=== PATIENT | female | born 1970 | race Caucasian/White ===

== ENCOUNTER → 2016-08-23 | Outpatient (CLI) | payer OTHER ==
[~2016-08-23] MED LIST: CARB200T PO; CEPH-459 PO; CEPH-460 PO; MULT-120 PO; MULTTAB22 PO; ONETAB13 PO; PERC5TAB12 PO; TEGR200T PO
[2016-08-23 09:49] LABS: AUTOMATED NEUTROPHIL # 5.6 TH/MM3 (1.8-7.7); BASOPHIL % 0.3 % (0.0-2.0); EOSINOPHIL # 0.1 TH/MM3 (0-0.4); EOSINOPHIL % 1.8 % (0.0-4.0); HEMATOCRIT 40.1 % (35.0-46.0); HEMO FLAGS DIFF FINAL; LYMPH % 21.2 % (9.0-44.0); LYMPHOCYTE # 1.7 TH/MM3 (1.0-4.8); MEAN CELL VOLUME 89.4 FL (80.0-100.0); MEAN CORPUSCULAR HEMOGLOBIN 29.9 PG (27.0-34.0); MEAN CORPUSCULAR HGB CONC 33.4 % (32.0-36.0); MONO % 4.8 % (0.0-8.0); NEUT % 71.9 % (16.0-70.0); PLATELET COUNT 275 TH/MM3 (150-450); RED BLOOD COUNT 4.48 MIL/MM3 (4.00-5.30); RED CELL DISTRIBUTION WIDTH 12.7 % (11.6-17.2); WHITE BLOOD COUNT 7.8 TH/MM3 (4.0-11.0)
== END ==
LOC: CPRE 08:43
PROVIDERS: ATTEND Urology
DX: Z01.812 Encounter for preprocedural laboratory examination (principal); N13.5 Crossing vessel and stricture of ureter without hydronephrosis
CPT/HCPCS: 36415; 85025

== ENCOUNTER → 2016-08-26 | Day surgery (SDC) | payer OTHER ==
[~2016-08-26] VITALS: Ht 167.6 cm; Wt 83.9 kg
[~2016-08-26] MED LIST changes: +DEXAMETHASONE SOD PHOS 4 MG/ML VIAL ONE; +DO NOT ADM ANY ANTICOAGULANT DRUGS XX PRN; +FAMOTIDINE 20 MG/2 ML VIAL ONE; +INSULIN HUMAN REGULAR 1,000 UNITS/10 ML VIAL SQ PRN; +IOHEXOL 300 MG/ML 50 ML BTL (for RAD DIAG) ONE; +LACTATED RINGER'S 1000 ML INJ 1,000 ML IV ONE; +LACTATED RINGER'S 1000 ML IV SCH; +METOPROLOL TARTRATE 25 MG TAB PO PRN; +MIDAZOLAM HCL 2 MG/2 ML VIAL ONE; -MULT-120 PO; +ONDANSETRON HCL 4 MG/2 ML VIAL IV PUSH ONE; +ONDANSETRON HCL 4 MG/2 ML VIAL IV PUSH PRN; +PHENYLEPH/NS 1000 MCG/10 ML SYR IV ONE; +PROPOFOL 200 MG/20 ML AMP IV ONE; +SODIUM CHLORID 0.9% 500 ML IV SCH; +ceFAZolin 2 GM PREMIX 50 ML IV SCH; +oxyCODONE/ACETAMINOPHEN 5 MG/325 MG TAB PO PRN
[2016-08-26 07:02] VITALS: BP 178/98; PULSE 82; RESP 20; TEMP 98.1; O2SAT 97
[2016-08-26 13:25] VITALS: BP 140/82; PULSE 77; RESP 16; TEMP 97; O2SAT 96
--- NOTE | 2016-08-26 13:39 | MP ---
cc: VITALIY AGUILAR MD DATE OF SURGERY: 08/26/2016 INDICATIONS FOR PROCEDURE This is the case of a pleasant 45-year-old female with left ureteral obstruction secondary to endometriosis, who presents today for cystoscopy, removal of left stent, left ureteroscopy and possible ablation of any recurrent endometrial tumor formation. PREOPERATIVE DIAGNOSIS Endometriosis, left ureter. POSTOPERATIVE DIAGNOSIS Endometriosis, left ureter. ATTENDING SURGEON Dr. Aguilar ANESTHESIA General. PROCEDURES PERFORMED Cystoscopy, left retrograde pyelogram, left ureteroscopy with laser ablation of endometrioma and left ureteral stent exchange. COMPLICATIONS None. ESTIMATED BLOOD LOSS Minimal. SPECIMENS None. OPERATIVE PROCEDURE IN DETAIL The patient was brought to the operating room suite and placed supine on the cysto table. The patient was then placed under general anesthesia. She was then repositioned in the dorsal lithotomy position and prepped and draped in normal sterile fashion. All pressure points were adequately padded. After an appropriate timeout I proceeded with cystoscopic evaluation utilizing the rigid cystoscope with the 20-[place] Citizen sheath and 30-degree lens. The previously passed left double-J stent could be seen protruding from the left ureteral orifice. The stent was then grasped with flexible forceps and brought out to the urethral meatus. Next, a Sensor 0.035 wire was advanced up through the stent and up into the left renal pelvis. The stent was then removed over the wire. The wire was then secured to a sterile drape with a hemostat. I then proceeded with passing the [facility] self-dilating ureteroscope along the previously passed wire. I was able to pass the scope several centimeters up to the point of the obstructing endometrioma which was once again visualized. I then utilized the 200 micron holmium laser fiber and proceeded with laser ablation of the mass. Periodically I needed to exchange the laser fiber for the Bugbee electrode for hemostasis. Once the tumor was fully ablated, I then performed a left retrograde pyelogram that demonstrated prompt filling and drainage of the collecting system. A 6-[place] Citizen, 24 cm, long-term double-J stent was then placed over the wire under both cystoscopic and fluoroscopic guidance and once the stent was in proper position the trailing string was removed. The bladder was next drained of all irrigant fluid and a 16-[place] Citizen, 10 cc Almanza catheter was placed. The patient tolerated the procedures without complications and was transferred to the PACU in satisfactory condition. MD SHYANN Nicholas /11:18 AM /1:33 PM
== END | disposition home or self-care (01) ==
LOC: HSDC 06:18
PROVIDERS: ATTEND Urology
DX: N80.8 Other endometriosis (principal); N13.5 Crossing vessel and stricture of ureter without hydronephrosis; R32 Unspecified urinary incontinence; C50.911 Malignant neoplasm of unspecified site of right female breast; G40.909 Epilepsy, unspecified, not intractable, without status epilepticus
CPT/HCPCS: 00910; 52332; 52354; 74420; C1769; J0690; J1100; J2250; J2370; J2405; J3010; J7120; Q9967

== ENCOUNTER 2016-08-31 09:37 | Emergency (ER) | payer OTHER ==
[~2016-08-31] VITALS: Ht 167.6 cm; Wt 82.0 kg
[2016-08-31] VITALS (8 sets, daily range): BP systolic 128–183; BP diastolic 81–109; PULSE 66–92; RESP 16–18; TEMP 97.6; O2SAT 94–100
[~2016-08-31 09:37] MED LIST changes: -CEPH-460 PO; -DEXAMETHASONE SOD PHOS 4 MG/ML VIAL ONE; -DO NOT ADM ANY ANTICOAGULANT DRUGS XX PRN; -FAMOTIDINE 20 MG/2 ML VIAL ONE; -INSULIN HUMAN REGULAR 1,000 UNITS/10 ML VIAL SQ PRN; -IOHEXOL 300 MG/ML 50 ML BTL (for RAD DIAG) ONE; -LACTATED RINGER'S 1000 ML INJ 1,000 ML IV ONE; -LACTATED RINGER'S 1000 ML IV SCH; -METOPROLOL TARTRATE 25 MG TAB PO PRN; -MIDAZOLAM HCL 2 MG/2 ML VIAL ONE; -ONDANSETRON HCL 4 MG/2 ML VIAL IV PUSH ONE; -ONDANSETRON HCL 4 MG/2 ML VIAL IV PUSH PRN; -ONETAB13 PO; -PHENYLEPH/NS 1000 MCG/10 ML SYR IV ONE; -PROPOFOL 200 MG/20 ML AMP IV ONE; -SODIUM CHLORID 0.9% 500 ML IV SCH; -ceFAZolin 2 GM PREMIX 50 ML IV SCH; -oxyCODONE/ACETAMINOPHEN 5 MG/325 MG TAB PO PRN
[2016-08-31] MEDS ORDERED: SODIUM CHLOR 0.9% 1000 ML INJ 1,000 ML IV SCH (10:24)
[2016-08-31] MEDS ORDERED: PANTOPRAZOLE SODIUM 40 MG VIAL IVP ONE (10:30)
[2016-08-31] MEDS ORDERED: SODIUM CHLORIDE 0.9% FLUSH 5 ML FLUSH IVF PRN (10:30)
[2016-08-31] MEDS ORDERED: ONDANSETRON HCL 4 MG/2 ML VIAL IVP ONE (10:30)
[2016-08-31] MEDS ORDERED: MORPHINE SULFATE 4 MG/ML INJ IV PUSH ONE (10:30)
--- NOTE | 2016-08-31 10:33 | PD ---
HPI Chief Complaint: Flank/Kidney Pain Time Seen by Provider: 10:12 Travel History International Travel<30 days: No Contact w/Intl Traveler<30days: No Traveled to known affect area: No History of Present Illness HPI 45-year-old female complains of left flank pain. Patient states the pain started about half an hour prior coming to the emergency room. Patient states the pain is severe pain sharp pain started the left flank area with radiation to left side abdomen. Patient denies any fever chills. Patient denies any dysuria or frequency. Patient has history endometriosis status post stent placement in the left ureter [address] Aguilar. Patient states that she has been doing well postoperatively until today. Patient states that she has mild nausea but no vomiting or diarrhea. Patient denies any vaginal discharge or bleeding. On a scale of 1-10 the pain is an 8. PFSH Past Medical History Hx Anticoagulant Therapy: No Arthritis: No Asthma: No Autoimmune Disease: No Blood Disorders: No Anxiety: No Depression: No Heart Rhythm Problems: No Cancer: Yes (RIGHT BREAST) Cardiovascular Problems: No High Cholesterol: No Chemotherapy: Yes Chest Pain: No Congestive Heart Failure: No COPD: No Cerebrovascular Accident: No Diabetes: No Diminished Hearing: No Endocrine: No Gastrointestinal Disorders: Yes (IBS) GERD: No Glaucoma: No Genitourinary: No Headaches: No Hepatitis: No Hiatal Hernia: No Hypertension: No Immune Disorder: No Kidney Stones: No Musculoskeletal: No Neurologic: Yes (SEIZURE DISORDER, LAST OCCURENCE 02/2016) Psychiatric: No Reproductive: No Respiratory: No Myocardial Infarction: No Radiation Therapy: No Renal Failure: No Seizures: Yes Sickle Cell Disease: No Sleep Apnea: No Thyroid Disease: No Ulcer: No ?: Not : 2 Para: 2 Ovarian Cysts: Yes (REMOVED FROM LEFT OVARY 1995) Past Surgical History Abdominal Surgery: No AICD: No Body Medical Devices: L URETER STENT Cardiac Surgery: No Ear Surgery: No Endocrine Surgery: No Eye Surgery: No Genitourinary Surgery: Yes (URETEROSCOPY WITH STENT PLACEMENT) Gynecologic Surgery: Yes (PARTIAL HYSTERECTOMY) Hysterectomy: Yes Joint Replacement: No Neurologic Surgery: No Oral Surgery: No Pacemaker: No Thoracic Surgery: No Other Surgery: Yes (RIGHT BREAST CA SURGERY ) Social History Alcohol Use: No Tobacco Use: No Substance Use: No Allergies-Medications (Allergen,Severity, Reaction): Coded Allergies: Demerol (Verified Allergy, Severe, Respiratory Failure, 08/31/16) Azithromycin (Verified Allergy, Intermediate, Hives, 08/31/16) Reported Meds & Prescriptions Reported Meds & Active Scripts Active Percocet (Oxycodone-Acetaminophen) 5-325 mg Tab 1-2 Tab PO Q6H PRN Keflex (Cephalexin) 250 Mg Cap 250 Mg PO TID Reported Multi For Him (Multiple Vitamins W/ Minerals) 1 Tab Tab 1 Tab PO DAILY Carbamazepine 200 Mg Tab 400 Mg PO BID Tegretol (Carbamazepine) 200 Mg Tab 200 Mg PO 12PM Review of Systems General / Constitutional: No: Fever Eyes: No: Visual changes HENT: No: Headaches Cardiovascular: No: Chest Pain or Discomfort Respiratory: No: Shortness of Breath Gastrointestinal: Positive: Abdominal Pain Genitourinary: No: Dysuria Musculoskeletal: No: Pain Skin: No Rash Neurologic: No: Weakness Psychiatric: No: Depression Endocrine: No: Polydipsia Hematologic/Lymphatic: No: Easy Bruising Physical Exam Narrative GENERAL: Well-nourished, well-developed patient. SKIN: Warm and dry. HEAD: Normocephalic. EYES: No scleral icterus. No injection or drainage. NECK: Supple, trachea midline. No JVD or lymphadenopathy. CARDIOVASCULAR: Regular rate and rhythm without murmurs, gallops, or rubs. RESPIRATORY: Breath sounds equal bilaterally. No accessory muscle use. GASTROINTESTINAL: Abdomen soft, non-tender, nondistended. MUSCULOSKELETAL: No cyanosis, or edema. BACK: Patient has moderate tenderness and palpation left flank area. No rebound tenderness. No mass. Neurologic exam normal. Data Data Last Documented VS Vital Signs Date Time Temp Pulse Resp B/P Pulse Ox O2 Delivery O2 Flow Rate FiO2 08/31/16 15:45 66 18 146/88 100 Nasal Cannula 2 08/31/16 09:39 97.6 Orders Complete Blood Count With Diff (08/31/16 10:24) Comprehensive Metabolic Panel (08/31/16 10:24) Lipase (08/31/16 10:24) Prothrombin Time / Inr (Pt) (08/31/16 10:24) Act Partial Throm Time (Ptt) (08/31/16 10:24) Urinalysis - C+S If Indicated (08/31/16 10:24) Ct Abd/Pel W/O Iv Contrast (08/31/16 10:24) Iv Access Insert/Monitor (08/31/16 10:24) Ecg Monitoring (08/31/16 10:24) Oximetry (08/31/16 10:24) Morphine Inj (Morphine Inj) (08/31/16 10:30) Ondansetron Inj (Zofran Inj) (08/31/16 10:30) Pantoprazole Inj (Protonix Inj) (08/31/16 10:30) Sodium Chlor 0.9% 1000 Ml Inj (Ns 1000 M (08/31/16 10:24) Sodium Chloride 0.9% Flush (Ns Flush) (08/31/16 10:30) Nephrostomy (08/31/16 ) Levofloxacin 500 Mg Premix Inj (Levaquin (08/31/16 14:08) Midazolam Inj (Versed Inj) (08/31/16 14:08) Fentanyl Inj (Fentanyl Inj) (08/31/16 14:09) Iohexol 350 Inj (Omnipaque 350 Inj) (08/31/16 14:38) Vital Signs (Adult) Q15MX2,Q30MX2 (08/31/16 14:55) Intake + Output MARICRUZ.QSHIFT (08/31/16 14:55) ^ Drain (08/31/16 14:55) ^ Change Dressing (08/31/16 14:55) ^ Notify Radiology (08/31/16 14:55) Percutaneous Ant. Pyelogram (08/31/16 ) Us Guided Needle Placement (08/31/16 ) Labs Laboratory Tests Test 08/31/16 10:30 White Blood Count 8.4 TH/MM3 Red Blood Count 4.39 MIL/MM3 Hemoglobin 13.1 GM/DL Hematocrit 39.1 % Mean Corpuscular Volume 89.2 FL Mean Corpuscular Hemoglobin 29.9 PG Mean Corpuscular Hemoglobin 33.5 % Concent Red Cell Distribution Width 13.0 % Platelet Count 301 TH/MM3 Mean Platelet Volume 7.2 FL Neutrophils (%) (Auto) 64.8 % Lymphocytes (%) (Auto) 26.4 % Monocytes (%) (Auto) 6.1 % Eosinophils (%) (Auto) 2.4 % Basophils (%) (Auto) 0.3 % Neutrophils # (Auto) 5.4 TH/MM3 Lymphocytes # (Auto) 2.2 TH/MM3 Monocytes # (Auto) 0.5 TH/MM3 Eosinophils # (Auto) 0.2 TH/MM3 Basophils # (Auto) 0.0 TH/MM3 CBC Comment DIFF FINAL Differential Comment Prothrombin Time 10.2 SEC Prothromb Time International 0.9 RATIO Ratio Activated Partial 24.3 SEC Thromboplast Time Urine Color YELLOW Urine Turbidity CLEAR Urine pH 5.5 Urine Specific [place] 1.010 Urine Protein TRACE mg/dL Urine Glucose (UA) NEG mg/dL Urine Ketones NEG mg/dL Urine Occult Blood MOD Urine Nitrite NEG Urine Bilirubin NEG Urine Urobilinogen LESS THAN 2.0 MG/DL Urine Leukocyte Esterase MOD Urine RBC 15 /hpf Urine WBC 6 /hpf Urine Squamous Epithelial 2 /hpf Cells Urine Bacteria RARE /hpf Urine Mucus FEW /lpf Microscopic Urinalysis Comment CULT NOT INDICATED Sodium Level 143 MEQ/L Potassium Level 3.9 MEQ/L Chloride Level 106 MEQ/L Carbon Dioxide Level 28.0 MEQ/L Anion Gap 9 MEQ/L Blood Urea Nitrogen 16 MG/DL Creatinine 0.70 MG/DL Estimat Glomerular Filtration 91 ML/MIN Rate Random Glucose 109 MG/DL Calcium Level 8.6 MG/DL Total Bilirubin 0.2 MG/DL Aspartate Amino Transf 10 U/L (AST/SGOT) Alanine Aminotransferase 22 U/L (ALT/SGPT) Alkaline Phosphatase 84 U/L Total Protein 7.5 GM/DL Albumin 3.5 GM/DL Lipase 142 U/L [facility] Medical Decision Making Medical Screen Exam Complete: Yes Emergency Medical Condition: Yes Interpretation(s) Last Impressions Abdomen/Pelvis CT 08/31/16 1024 Signed Impressions: Service Date/Time: Wednesday, August 31, 2016 10:58 - CONCLUSION: The left kidney remains severely hydronephrotic despite the placement of a left-sided double-J ureteral catheter. The ureter is quite dilated all the way down into the mid pelvis. The catheter is in good position without any obvious residual stone... Alin Jansen MD 11:35 AM. CBC within normal limit. CMP within normal limit. UA positive for WBC RBC and bacteria. Differential Diagnosis Differential diagnosis including urethral stent obstruction, nephrolithiasis, pyelonephritis, colitis, musculoskeletal. Narrative Course 45-year-old female with left flank pain. Status post ureteral stent placement for obstructive endometriosis. Normal saline solution 1 25 cc an hour. Morphine 4 mg IV. Zofran 4 mg IV. I spoke with Dr. Aguilar, advised interventional radiologist for nephrology tube placement today. Patient was sent to IR for nephrology to placement and came back. Patient was observed and did well. Patient will be discharged home to follow with Dr. Aguilar. Diagnosis Primary Impression: Ureteral obstruction, left Additional Impression: Endometriosis Patient Instructions: General Instructions Additional Instructions: Keflex as directed. Follow-up with personal physician and urologist. Return if persistent problem or worse. Med/Other Pt SpecificInfo: Prescription(s) given Scripts Cephalexin (Keflex)500 Mg Stn391 Mg PO Q8H #21 CAP Ref 0 Prov:Yusuf Maurer MD 08/31/16 Disposition: 01 DISCHARGE HOME Condition: Stable Yusuf Maurer MD Aug 31, 2016 10:33
[2016-08-31 10:51] LABS: AUTOMATED NEUTROPHIL # 5.4 TH/MM3 (1.8-7.7); BASOPHIL % 0.3 % (0.0-2.0); EOSINOPHIL # 0.2 TH/MM3 (0-0.4); EOSINOPHIL % 2.4 % (0.0-4.0); HEMATOCRIT 39.1 % (35.0-46.0); HEMO FLAGS DIFF FINAL; LYMPH % 26.4 % (9.0-44.0); LYMPHOCYTE # 2.2 TH/MM3 (1.0-4.8); MEAN CELL VOLUME 89.2 FL (80.0-100.0); MEAN CORPUSCULAR HEMOGLOBIN 29.9 PG (27.0-34.0); MEAN CORPUSCULAR HGB CONC 33.5 % (32.0-36.0); MONO % 6.1 % (0.0-8.0); NEUT % 64.8 % (16.0-70.0); PLATELET COUNT 301 TH/MM3 (150-450); RED BLOOD COUNT 4.39 MIL/MM3 (4.00-5.30); WHITE BLOOD COUNT 8.4 TH/MM3 (4.0-11.0)
[2016-08-31 10:53] LABS: BACTERIA, URINE RARE /hpf; BLOOD, URINE MOD (NEG); COMMENT (UR) CULT NOT INDICATED; CULTURE IF INDICATED CULT NOT INDICATED; GLUCOSE,URINE NEG (NEG); KETONE, URINE NEG (NEG); MUCUS URINE FEW /lpf (OCC); NITRITE,URINE NEG (NEG); PH, URINE 5.5 (5.0-8.5); SQUAMOUS EPITHELIAL CELL URINE 2 /hpf (0-5); URINE COLOR YELLOW (YELLW/STRAW)
[2016-08-31 10:59] LABS: APTT (PATIENT) 24.3 SEC (24.3-30.1); INTERNATIONAL NORMALIZED RATIO 0.9 RATIO; PROTHROMBIN TIME - PATIENT 10.2 SEC (9.8-11.6)
[2016-08-31 11:01] LABS: ANION GAP 9 MEQ/L (5-15); AST (GOT) 10 U/L (15-37); BLOOD UREA NITROGEN 16 MG/DL (7-18); CHLORIDE 106 MEQ/L (98-107); GLOMERULAR FILTRATION RATE 91 ML/MIN (>89); POTASSIUM 3.9 MEQ/L (3.5-5.1); SODIUM (NA) 143 MEQ/L (136-145)
[2016-08-31 11:04] LABS: ALKALINE PHOSPHATASE 84 U/L (45-117); ALT (GPT) 22 U/L (10-53); TOTAL BILIRUBIN ADULT 0.2 MG/DL (0.2-1.0)
--- NOTE | 2016-08-31 11:15 | RADRPT ---
EXAM DATE/TIME: 08/31/2016 10:58 [facility] COMPARISON: No previous studies available for comparison. INDICATIONS : Left flank pain; recent stent placement. ORAL CONTRAST: No oral contrast ingested. RADIATION DOSE: 11.73 CTDIvol (mGy) MEDICAL HISTORY : Irritiable bowel syndrome. Carcinoma, breast. Endometriosis SURGICAL HISTORY : Hysterectomy. Left oophorectomy, right lumpectomy. ENCOUNTER: Initial ACUITY: 1 week PAIN SCALE: 8/10 LOCATION: Left flank TECHNIQUE: Volumetric scanning of the abdomen and pelvis was performed. Using automated exposure control and ad justment of the mA and/or kV according to patient size, radiation dose was kept as low as reasonably achievable to obtain optimal diagnostic quality images. FINDINGS: LOWER LUNGS: The visualized lower lungs are clear. LIVER: Homogeneous density without lesion. There is no dilation of the biliary tree. No calcified gallston es. SPLEEN: Normal size without lesion. PANCREAS: Within normal limits. KIDNEYS: The left kidney remains severely hydronephrotic despite the placement of a left-sided double-J ureter al catheter. The ureter is quite dilated all the way down into the mid pelvis. The catheter is in goo d position without any obvious residual stone. Right kidney is 10.5 cm in height, left 12.5. ADRENAL GLANDS: Within normal limits. VASCULAR: There is no aortic aneurysm. BOWEL/MESENTERY: The stomach, small bowel, and colon demonstrate no acute abnormality. There is no free intraperitone al air or fluid. ABDOMINAL WALL: Within normal limits. RETROPERITONEUM: There is no lymphadenopathy. BLADDER: No wall thickening or mass. REPRODUCTIVE: Hypodensities in the right adnexa likely benign functional cysts in the 45 year-old female INGUINAL: There is no lymphadenopathy or hernia. MUSCULOSKELETAL: Within normal limits for patient age. CONCLUSION: The left kidney remains severely hydronephrotic despite the placement of a left-sided double-J ureter al catheter. The ureter is quite dilated all the way down into the mid pelvis. The catheter is in goo d position without any obvious residual stone... Alin Jansen MD on August 31, 2016 at 11:08 Board Certified Radiologist. This report was verified electronically.
[2016-08-31] MEDS ORDERED: MIDAZOLAM HCL 5 MG/5 ML VIAL ONE (14:08)
[2016-08-31] MEDS ORDERED: LEVOFLOXACIN 500 MG PREMIX INJ 100 ML IV ONE (14:08)
[2016-08-31] MEDS ORDERED: fentaNYL CITRATE 250 MCG/5 ML AMP ONE (14:09)
[2016-08-31] MEDS ORDERED: IOHEXOL 350 MG/ML 50 ML BTL (for RAD DIAG) ONE (14:38)
--- NOTE | 2016-08-31 14:57 | PD.RAD ---
Post Procedure Progress Note Pre Procedure Diagnosis: (1) Ureteral obstruction, left Post Procedure Diagnosis: (1) Ureteral obstruction, left Procedure Date: Aug 31, 2016 Supervising Radiologist: Dominick Leung Proceduralist/Assist: RT Refugio(R) Anesthesia: Local, Conscious Sedation Plan of Activity Patient to Unit: Nursing Unit Patient Condition: Good See PACS Report for procedural detail/treatment Drainage Procedure Procedure 1 Imaging Guidance: Fluoroscopy, Ultrasound Side: Left Procedure Type: Nephrostomy Procedure: Placement Australian: 8 Drainage: [place] drainage Dominick Leung MD Aug 31, 2016 14:57
--- NOTE | 2016-08-31 15:23 | RADRPT ---
EXAM DATE/TIME: 08/31/2016 13:53 [facility] COMPARISON: No previous studies available for comparison. INDICATIONS : Patient with left hydronephrosis in need of nephrostomy tube placement. MEDICAL HISTORY : Irritiable bowel syndrome. Carcinoma, breast. Endometriosis SURGICAL HISTORY : Hysterectomy. Left oophorectomy, right lumpectomy. ENCOUNTER: Initial ACUITY: 3 months PAIN SCORE: 0/10 FLUORO TIME: 4.4 minutes SEDATION TIME: 30 minutes CONTRAST: 25 cc Omnipaque (iohexol) 350 MEDICATION(S): 1.) 2 mg midazolam (Versed) IV 2.) 100 mcg fentanyl (Sublimaze) IV DEVICE(S): 1.) 8 [place] nephrostomy catheter PROCEDURE : 1. fluoroscopic and Ultrasound-guided puncture of the kidney. 2. Antegrade percutaneous pyelogram. 3. Percutaneous nephrostomy placement. 4. Conscious sedation with continuous EKG and oximetry monitoring. TECHNIQUE: The patient was placed prone on the fluoroscopy table. The back was prepped in sterile fashion. Full sterile technique was used, including cap, mask, sterile gloves and gown and a large sterile sheet. H and hygiene and 2% chlorhexidine and/or betadine/alcohol prep was utilized per protocol for cutaneous antisepsis. The skin and subcutaneous tissues were infiltrated with local anesthetic solution. Under direct ultrasound and fluoroscopic guidance, a 22 gauge Chiba needle was used to access a poste rior lower pole calyx of the left kidney. A 0.018 inch guidewire was introduced and manipulated into the proximal ureter. The AccuStick dilator was used to aid in insertion of a 4 [place] vessel dilator. The transparenchymal tract was tested over a Toughy-Mik adapter revealing direct access into the c ollecting system with no vascular opacification noted. The AccuStick was then used to insert a 5.5 Fr ench vessel dilator through which an angled Glidewire was inserted. An 8 [place] pigtail nephrostomy t ube was then introduced and formed up in the renal pelvis. This was secured at the skin with silk sut ure and connected to gravity drainage. Small volume contrast injection confirmed good positioning in the collecting system. The patient tolerated the procedure well and was taken to recovery area in stable condition. MEDICAL MANAGEMENT: Conscious sedation administered as above. Continuous pulse oximetry, hemodynamic and EKG monitoring p erformed throughout. Patient was stable throughout and taken to recovery in good stable condition. CONCLUSION: Uncomplicated percutaneous nephrostomy as above. Dominick Leung MD on August 31, 2016 at 15:16 Board Certified Radiologist. This report was verified electronically.
[2016-08-31] MEDS ORDERED: CEPH-460 PO (16:58)
[2016-10-14] MEDS ORDERED: ONETAB13 PO (07:44)
[2016-10-14] MEDS ORDERED: CEPH-459 PO (11:16)
[2016-10-14] MEDS ORDERED: PERC5TAB12 PO (11:16)
== END 2016-08-31 17:40 | disposition home or self-care (01) ==
LOC: NEPA 09:37
DX: N13.5 Crossing vessel and stricture of ureter without hydronephrosis (principal); K58.9 Irritable bowel syndrome, unspecified
CPT/HCPCS: 50432; 74176; 80053; 81001; 83690; 85025; 85610; 85730; 96361; 96374; 96375; 99152; 99153; 99284; C1729; C1769; C1894; C9113; J1956; J2250; J2270; J2405; J3010; J7030; Q9967

== ENCOUNTER 2016-08-31 19:33 | Emergency (ER) | payer OTHER ==
[~2016-08-31] VITALS: Ht 167.6 cm; Wt 81.5 kg
[~2016-08-31 19:33] MED LIST changes: +CEPH-460 PO
[2016-08-31 19:36] VITALS: BP 167/91; PULSE 83; RESP 18; TEMP 98; O2SAT 96
--- NOTE | 2016-08-31 20:56 | PD ---
HPI Chief Complaint: Machine Coremaker Problem Time Seen by Provider: 20:50 Travel History International Travel<30 days: No Contact w/Intl Traveler<30days: No Traveled to known affect area: No History of Present Illness HPI 45-year-old female with history of endometriosis and blockage of her left ureter secondary to endometriosis, had a stent and urostomy tube placed today by interventional radiology, returns to the ER today because she states that the urostomy to his leaking. She denies any other issues. Modifying Factors: None Associated Signs & Symptoms: Leaking of urostomy tube Risk Factors: None PFSH Past Medical History Hx Anticoagulant Therapy: No Arthritis: No Asthma: No Autoimmune Disease: No Blood Disorders: No Anxiety: No Depression: No Heart Rhythm Problems: No Cancer: Yes (RIGHT BREAST) Cardiovascular Problems: No High Cholesterol: No Chemotherapy: Yes Chest Pain: No Congestive Heart Failure: No COPD: No Cerebrovascular Accident: No Diabetes: No Diminished Hearing: No Endocrine: No Gastrointestinal Disorders: Yes (IBS) GERD: No Glaucoma: No Genitourinary: No Headaches: No Hepatitis: No Hiatal Hernia: No Hypertension: No Immune Disorder: No Kidney Stones: No Musculoskeletal: No Neurologic: Yes (SEIZURE DISORDER, LAST OCCURENCE 02/2016) Psychiatric: No Reproductive: No Respiratory: No Myocardial Infarction: No Radiation Therapy: No Renal Failure: No Seizures: Yes Sickle Cell Disease: No Sleep Apnea: No Thyroid Disease: No Ulcer: No Tetanus Vaccination: > 5 Years Influenza Vaccination: Yes ?: Not : 2 Para: 2 Ovarian Cysts: Yes (REMOVED FROM LEFT OVARY 1995) Past Surgical History Abdominal Surgery: No AICD: No Body Medical Devices: L URETER STENT Cardiac Surgery: No Ear Surgery: No Endocrine Surgery: No Eye Surgery: No Genitourinary Surgery: Yes (URETEROSCOPY WITH STENT PLACEMENT) Gynecologic Surgery: Yes (PARTIAL HYSTERECTOMY) Hysterectomy: Yes Joint Replacement: No Neurologic Surgery: No Oral Surgery: No Pacemaker: No Thoracic Surgery: No Other Surgery: Yes (RIGHT BREAST CA SURGERY ) Social History Alcohol Use: No Tobacco Use: No Substance Use: No Allergies-Medications (Allergen,Severity, Reaction): Coded Allergies: Demerol (Verified Allergy, Severe, Respiratory Failure, 08/31/16) Azithromycin (Verified Allergy, Intermediate, Hives, 08/31/16) Reported Meds & Prescriptions Reported Meds & Active Scripts Active Keflex (Cephalexin) 500 Mg Cap 500 Mg PO Q8H Percocet (Oxycodone-Acetaminophen) 5-325 mg Tab 1-2 Tab PO Q6H PRN Keflex (Cephalexin) 250 Mg Cap 250 Mg PO TID Reported Multi For Him (Multiple Vitamins W/ Minerals) 1 Tab Tab 1 Tab PO DAILY Carbamazepine 200 Mg Tab 400 Mg PO BID Tegretol (Carbamazepine) 200 Mg Tab 200 Mg PO 12PM Review of Systems Except as stated in HPI: all other systems reviewed are Neg Physical Exam Narrative GENERAL: Well-nourished, well-developed middle age white female patient in no acute distress. SKIN: Warm and dry. HEAD: Normocephalic. EYES: No scleral icterus. No injection or drainage. NECK: Supple, trachea midline. CARDIOVASCULAR: Regular rate and rhythm without murmurs, gallops, or rubs. RESPIRATORY: Breath sounds equal bilaterally. No accessory muscle use. GASTROINTESTINAL: Abdomen soft, non-tender, nondistended. MUSCULOSKELETAL: No cyanosis, or edema. BACK: Nontender without obvious deformity. Left sided urostomy tube is in place. It is noted that there is some urine leakage from the connection between the urostomy tube and urostomy bag. Data Data Last Documented VS Vital Signs Date Time Temp Pulse Resp B/P Pulse Ox O2 Delivery O2 Flow Rate FiO2 08/31/16 19:36 98.0 83 18 167/91 96 Room Air MDM Medical Decision Making Medical Screen Exam Complete: Yes Emergency Medical Condition: Yes Medical Record Reviewed: Yes Differential Diagnosis Leakage of urine from urostomy tube/request for change tube Narrative Course The urostomy bag was changed by me in the ER without issues. It is draining urine properly. At this point, my plan would be to release her with follow-up to urology. Return for any new issues as needed. The plan was discussed with the patient and she states understanding. Diagnosis Primary Impression: Catheter (urine) change required Disposition: 01 DISCHARGE HOME Condition: Stable Nila Parkinson MD Aug 31, 2016 20:56
[2016-10-14] MEDS ORDERED: ONETAB13 PO (07:44)
[2016-10-14] MEDS ORDERED: CEPH-459 PO (11:16)
[2016-10-14] MEDS ORDERED: PERC5TAB12 PO (11:16)
== END 2016-08-31 21:44 | disposition home or self-care (01) ==
LOC: NEPC 19:33
DX: Z45.2 Encounter for adjustment and management of vascular access device (principal)
CPT/HCPCS: 99282

== ENCOUNTER 2016-09-01 08:44 | Emergency (ER) | payer OTHER ==
[~2016-09-01] VITALS: Ht 167.6 cm; Wt 75.0 kg
[2016-09-01 08:47] VITALS: BP 175/94; PULSE 78; RESP 17; TEMP 98.2; O2SAT 95
--- NOTE | 2016-09-01 09:08 | PD ---
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 Patient says that she had the nephrostomy tube was put in by interventional radiology yesterday as ordered by the urologist Dr. Aguilar. She went home and had to return last night since the nephrostomy tube was leaking. She was discharged home after it was supposedly fixed but at home it started leaking again. Hence patient is back again now. No history of pain or any other symptoms. It's leaking right at the joint of the tube to the catheter. She has wrapped it with a gauze and tape. PFSH Past Medical History Narrative Medical List of her past medical history as reviewed from the nursing note. Hx Anticoagulant Therapy: No Arthritis: No Asthma: No Autoimmune Disease: No Blood Disorders: No Anxiety: No Depression: No Heart Rhythm Problems: No Cancer: Yes (RIGHT BREAST) Cardiovascular Problems: No High Cholesterol: No Chemotherapy: Yes Chest Pain: No Congestive Heart Failure: No COPD: No Cerebrovascular Accident: No Diabetes: No Diminished Hearing: No Endocrine: No Gastrointestinal Disorders: Yes (IBS) GERD: No Glaucoma: No Genitourinary: No Headaches: No Hepatitis: No Hiatal Hernia: No Hypertension: No Immune Disorder: No Kidney Stones: No Musculoskeletal: No Neurologic: Yes (SEIZURE DISORDER, LAST OCCURENCE 02/2016) Psychiatric: No Reproductive: No Respiratory: No Myocardial Infarction: No Radiation Therapy: No Renal Failure: No Seizures: Yes Sickle Cell Disease: No Sleep Apnea: No Thyroid Disease: No Ulcer: No Tetanus Vaccination: < 5 Years ?: Not : 2 Para: 2 Ovarian Cysts: Yes (REMOVED FROM LEFT OVARY 1995) Past Surgical History Abdominal Surgery: No AICD: No Body Medical Devices: L URETER STENT Cardiac Surgery: No Ear Surgery: No Endocrine Surgery: No Eye Surgery: No Genitourinary Surgery: Yes (URETEROSCOPY WITH STENT PLACEMENT) Gynecologic Surgery: Yes (PARTIAL HYSTERECTOMY) Hysterectomy: Yes Joint Replacement: No Neurologic Surgery: No Oral Surgery: No Pacemaker: No Thoracic Surgery: No Other Surgery: Yes (RIGHT BREAST CA SURGERY ) Social History Alcohol Use: No Tobacco Use: No Substance Use: No Allergies-Medications (Allergen,Severity, Reaction): Coded Allergies: Demerol (Verified Allergy, Severe, Respiratory Failure, 09/01/16) Azithromycin (Verified Allergy, Intermediate, Hives, 09/01/16) Comments List of her allergies reviewed from the nursing note. Reported Meds & Prescriptions Reported Meds & Active Scripts Active Keflex (Cephalexin) 500 Mg Cap 500 Mg PO Q8H Percocet (Oxycodone-Acetaminophen) 5-325 mg Tab 1-2 Tab PO Q6H PRN Keflex (Cephalexin) 250 Mg Cap 250 Mg PO TID Reported Multi For Him (Multiple Vitamins W/ Minerals) 1 Tab Tab 1 Tab PO DAILY Carbamazepine 200 Mg Tab 400 Mg PO BID Tegretol (Carbamazepine) 200 Mg Tab 200 Mg PO 12PM Narrative Medication List of her home medications reviewed from the nursing note. Review of Systems Except as stated in HPI: all other systems reviewed are Neg Physical Exam Narrative GENERAL: Awake, alert, no obvious distress SKIN: Warm and dry. Nephrostomy tube from the left side. The percutaneous area looks good. The gauze wrapped around the junction was taken down. The screw seemed a little loose and I tightened it. HEAD: Atraumatic. Normocephalic. EYES: Pupils equal and round. No scleral icterus. No injection or drainage. ENT: No nasal bleeding or discharge. Mucous membranes pink and moist. NECK: Trachea midline. No JVD. CARDIOVASCULAR: Regular rate and rhythm. No murmur appreciated. RESPIRATORY: No accessory muscle use. Clear to auscultation. Breath sounds equal bilaterally. GASTROINTESTINAL: Abdomen soft, non-tender, nondistended. Hepatic and splenic margins not palpable. MUSCULOSKELETAL: No obvious deformities. No clubbing. No cyanosis. No edema. NEUROLOGICAL: Awake and alert. No obvious cranial nerve deficits. Motor grossly within normal limits. Normal speech. PSYCHIATRIC: Appropriate mood and affect; insight and judgment normal. Data Data Last Documented VS Vital Signs Date Time Temp Pulse Resp B/P Pulse Ox O2 Delivery O2 Flow Rate FiO2 09/01/16 08:47 98.2 78 17 175/94 95 MDM Medical Decision Making Medical Screen Exam Complete: Yes Emergency Medical Condition: Yes Medical Record Reviewed: Yes Differential Diagnosis Nephrostomy tube malfunction Narrative Course 10 AM I went back and checked after an hour to see if the tube was leaking and I did not notice any leakage. The patient is satisfied with this. I will discharge her home since I do not see any other reason to keep her or intervene. Patient will follow up with her urologist on Friday. Procedures EKG Prior to Arrival: No Diagnosis Primary Impression: Malfunction of nephrostomy tube Referrals: French Aguilar MD 2 days Additional Instructions: Please follow-up with your urologist on Friday. Return to the ER if symptoms worsen or any other new concerns. Med/Other Pt SpecificInfo: No Change to Meds Disposition: 01 DISCHARGE HOME Condition: Stable Junior Bruner MD Sep 01, 2016 09:08
[2016-10-14] MEDS ORDERED: ONETAB13 PO (07:44)
[2016-10-14] MEDS ORDERED: PERC5TAB12 PO (11:16)
[2016-10-14] MEDS ORDERED: CEPH-459 PO (11:16)
== END 2016-09-01 11:09 | disposition home or self-care (01) ==
LOC: NEPE 08:44
DX: T83.032A Leakage of nephrostomy catheter, initial encounter (principal); K58.9 Irritable bowel syndrome, unspecified; R56.9 Unspecified convulsions
CPT/HCPCS: 99283

== ENCOUNTER → 2016-10-14 | Day surgery (SDC) | payer OTHER ==
[~2016-10-14] VITALS: Ht 167.6 cm; Wt 83.3 kg
[~2016-10-14] MED LIST changes: -CARB200T PO; -CEPH-460 PO; +DEXAMETHASONE SOD PHOS 4 MG/ML VIAL ONE; +DO NOT ADM ANY ANTICOAGULANT DRUGS XX PRN; +FAMOTIDINE 20 MG/2 ML VIAL ONE; +IOHEXOL 350 MG/ML 10 ML VIAL (for RAD DIAG) ONE; +KETOROLAC TROMETHAMINE 60 MG/2 ML (IM) VIAL IM ONE; +MIDAZOLAM HCL 2 MG/2 ML VIAL ONE; +ONDANSETRON HCL 4 MG/2 ML VIAL IV PUSH ONE; +ONDANSETRON HCL 4 MG/2 ML VIAL IV PUSH PRN; +ONETAB13 PO; +PROPOFOL 200 MG/20 ML AMP IV ONE; +ceFAZolin 2 GM PREMIX 50 ML ONE; +ePHEDrine/NS 25 MG/5 ML SYR IV ONE; +oxyCODONE/ACETAMINOPHEN 5 MG/325 MG TAB PO PRN
[2016-10-14 07:50] VITALS: BP 143/90; PULSE 84; RESP 20; TEMP 97.9; O2SAT 97
[2016-10-14 08:46] LABS: AUTOMATED NEUTROPHIL # 2.6 TH/MM3 (1.8-7.7); BASOPHIL % 0.3 % (0.0-2.0); EOSINOPHIL # 0.2 TH/MM3 (0-0.4); EOSINOPHIL % 3.3 % (0.0-4.0); HEMATOCRIT 35.3 % (35.0-46.0); HEMO FLAGS DIFF FINAL; LYMPH % 34.7 % (9.0-44.0); LYMPHOCYTE # 1.6 TH/MM3 (1.0-4.8); MEAN CELL VOLUME 89.4 FL (80.0-100.0); MEAN CORPUSCULAR HEMOGLOBIN 30.8 PG (27.0-34.0); MEAN CORPUSCULAR HGB CONC 34.4 % (32.0-36.0); NEUT % 54.7 % (16.0-70.0); PLATELET COUNT 221 TH/MM3 (150-450); RED BLOOD COUNT 3.95 MIL/MM3 (4.00-5.30); RED CELL DISTRIBUTION WIDTH 12.7 % (11.6-17.2); WHITE BLOOD COUNT 4.7 TH/MM3 (4.0-11.0)
--- NOTE | 2016-10-14 11:14 | PD.OP ---
Operative Report Date of Surgery: Oct 14, 2016 Preoperative Diagnosis: (1) Ureteral obstruction, left Postoperative Diagnosis: (1) Ureteral obstruction, left Procedure: Cystoscopy, left retrograde pyelogram, left ureteroscopy and exchange of left ureteral stent. 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 Patient is status post previous fulguration with stent placement and has been on ongoing medical management for the endometriosis. Presents now for reevaluation to include cystoscopy, removal of left ureteral stent and left retrograde study. Operative procedure in detail: Patient was brought to the operating suite and placed supine on the OR table. She was then placed under general anesthesia. She was then repositioned in the dorsolithotomy position and prepped and draped in normal sterile fashion. After an appropriate timeout was undertaken proceeded with cystoscopic evaluation utilizing the rigid cystoscope with the 20 [place] sheath and 30 lens. The previously placed left ureteral stent could be seen protruding from the patient's left ureteral orifice. There were no bladder mucosal lesions or other abnormalities noted. The left stent was grasped with flexible forceps and removed. A 6 [place] open-ended ureteral catheter was utilized and a left retrograde pyelogram study performed. There was a filling defect noted within the distal left ureter and only a small amount of contrast was seen passing around this filling defect. I then placed a 0.035 wire up the patient's left ureter and secured to a sterile drape with hemostat the self dilating ureteroscope was then utilized and ureteroscopic evaluation of the distal left ureter was performed. There were several mass lesions within the lumen of the left distal ureter causing obstruction consistent with endometrioma formation. The ureteroscope was withdrawn and a 6 [place] 24 cm salvage determiner double-J stent was placed under both cystoscopic and fluoroscopic guidance without difficulty. The bladder was next drained of all irrigant fluid and cystoscope withdrawn. Plan: We'll discuss options with the patient to include conservative management with ongoing medical management and follow up endoscopic evaluation in approximate 6 months versus surgical segmental resection of the involved distal left ureter. French Aguilar MD Oct 14, 2016 11:14
[2016-10-14 13:00] VITALS: BP 142/92; PULSE 70; RESP 16; TEMP 97.1; O2SAT 98
== END | disposition home or self-care (01) ==
LOC: HSDC 06:47
PROVIDERS: ATTEND Urology
DX: N13.5 Crossing vessel and stricture of ureter without hydronephrosis (principal); N80.8 Other endometriosis
CPT/HCPCS: 00910; 52332; 74420; 85025; C1769; J0690; J1100; J1885; J2250; J2405; J3010; Q9967

== ENCOUNTER → 2017-05-05 | Day surgery (SDC) | payer OTHER ==
[~2017-05-05] VITALS: Ht 167.6 cm; Wt 90.0 kg
[~2017-05-05] MED LIST changes: +*morphine SULFATE 8 MG/ML PERIprocedure ONLY ONE; +CARB200T PO; +CHLORHEXIDINE GLUCONATE 2 % 1 PACK (2 CLOTHS) TOPICAL PRN; +CIPR500T2 PO; +CRANCAP2 PO; -DEXAMETHASONE SOD PHOS 4 MG/ML VIAL ONE; +DO NOT ADM ANY ANTICOAGULANT DRUGS PRN; -DO NOT ADM ANY ANTICOAGULANT DRUGS XX PRN; +HYDR12.57 PO; +INSULIN HUMAN REGULAR 1,000 UNITS/10 ML VIAL SQ PRN; -IOHEXOL 350 MG/ML 10 ML VIAL (for RAD DIAG) ONE; +IOHEXOL 350 MG/ML 50 ML BTL (for RAD DIAG) OTHER ONE; -KETOROLAC TROMETHAMINE 60 MG/2 ML (IM) VIAL IM ONE; +LACTATED RINGER'S 1000 ML INJ 1,000 ML IV ONE; +LACTATED RINGER'S 1000 ML IV PRN; +LEVA500T20 PO; +LEVO500T8 PO; +METOPROLOL TARTRATE 25 MG TAB PO PRN; +MIDAZOLAM HCL 2 MG/2 ML VIAL IV ONE; -MIDAZOLAM HCL 2 MG/2 ML VIAL ONE; -MULTTAB22 PO; +POVIDONE IODINE 5% (ANTISEPSIS KIT) 4 APPLICATIONS EACH NARE PRN; +PROMETHAZINE INJ 25 MG/ML VIAL ONE; +PROPOFOL 100 MG/10 ML INJ IV ONE; -PROPOFOL 200 MG/20 ML AMP IV ONE; +SODIUM CHLORID 0.9% 500 ML IV PRN; +ceFAZolin 2 GM PREMIX 50 ML IV SCH; -ceFAZolin 2 GM PREMIX 50 ML ONE; -ePHEDrine/NS 25 MG/5 ML SYR IV ONE
[2017-05-05 07:05] LABS: AUTOMATED NEUTROPHIL # 2.7 TH/MM3 (1.8-7.7); BASOPHIL % 0.6 % (0.0-2.0); EOSINOPHIL # 0.4 TH/MM3 (0-0.4); EOSINOPHIL % 6.9 % (0.0-4.0); HEMO FLAGS DIFF FINAL; LYMPH % 35.2 % (9.0-44.0); LYMPHOCYTE # 1.9 TH/MM3 (1.0-4.8); MEAN CELL VOLUME 88.9 FL (80.0-100.0); MEAN CORPUSCULAR HEMOGLOBIN 29.4 PG (27.0-34.0); MEAN CORPUSCULAR HGB CONC 33.1 % (32.0-36.0); NEUT % 48.3 % (16.0-70.0); PLATELET COUNT 234 TH/MM3 (150-450); RED BLOOD COUNT 3.93 MIL/MM3 (4.00-5.30); RED CELL DISTRIBUTION WIDTH 12.9 % (11.6-17.2); WHITE BLOOD COUNT 5.5 TH/MM3 (4.0-11.0)
--- NOTE | 2017-05-05 11:06 | PD.OP ---
Operative Report Date of Surgery: May 05, 2017 Preoperative Diagnosis: (1) Ureteral obstruction, left Postoperative Diagnosis: (1) Ureteral obstruction, left Procedure: Cystoscopy, left stent removal, left retrograde pyelogram, left ureteroscopy with fulguration of residual mass consistent with endometrioma and placement of termite exterminator helper left ureteral stent. 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 Patient is status post placement of a termite exterminator helper stent August of this year and has been medically managed for her endometriosis. Patient presents now to reassess her left collecting system. Operative procedure in detail: Patient was brought to the operating room suite and placed supine on the OR table. She was then placed under general endotracheal anesthesia. She was then repositioned in the dorsal lithotomy position and prepped and draped in normal sterile fashion. After an appropriate timeout was undertaken I proceeded with cystoscopic evaluation utilizing the rigid cystoscope with the 20 [place]ian sheath and the 30 lens. The previously past left ureteral stent could be seen protruding from the left ureteral orifice. A sensor 0.035 wire was gently advanced alongside the stent and advanced up into the left kidney under fluoroscopic guidance. The guidewire place the left stent was removed by grasping it with flexible forceps. A 6 [place] open-ended catheter was advanced over the past guidewire and the guidewire withdrawn. A left retrograde problem study was then performed and demonstrated a filling defect within the distal left ureter with sluggish drainage of contrast. The guidewire was reintroduced and the open- ended catheter was removed. The flexible ureteroscope was then utilized and advanced alongside the guidewire. There was residual obstructing tissue involving the distal ureter just beyond the margin of the 2 upper ureters into the single lower ureter. The tissue was consistent with the patient's known endometriosis. The [place] electrode was then utilized and the obstructing tissue mass was fulgurated. The flexible ureteroscope was withdrawn and the 6 [place] opening catheter was once again utilized to perform a left retrograde pyelogram study. This time there was prompt drainage of contrast noted. The 0.035 sensor wire was once again utilized advanced through the open-ended catheter and the open-ended catheter was exchanged for a 6 [place] 28 cm termite exterminator helper stent. The proximal coil was noted to be within the upper pole of the left kidney and the lower coil within the bladder. A 16 [place]ian 10 cc Almanza catheter was in place and connected to gravity drainage. The patient tolerated the procedures without complications and was transferred to the PACU in satisfactory condition. The left ureteral stent will need to be left in place for a minimum of 6 weeks. French Aguilar MD May 05, 2017 11:06
[2017-05-05 13:44] VITALS: BP 127/83; PULSE 72; RESP 16; TEMP 97.5; O2SAT 97
== END | disposition home or self-care (01) ==
LOC: HSDC 06:05
PROVIDERS: ATTEND Urology
DX: N13.1 Hydronephrosis with ureteral stricture, not elsewhere classified (principal); N80.8 Other endometriosis; K58.9 Irritable bowel syndrome, unspecified; Z01.818 Encounter for other preprocedural examination
CPT/HCPCS: 00910; 52224; 52332; 85025; J0690; J2270; J7120; Q9967; 74420; C1769; J2250; J2405; J2550; J3010

== ENCOUNTER 2017-05-06 17:49 | Inpatient (IN) | payer OTHER ==
[~2017-05-06] VITALS: Ht 167.6 cm; Wt 99.0 kg
[~2017-05-06 17:49] MED LIST changes: -*morphine SULFATE 8 MG/ML PERIprocedure ONLY ONE; -CARB200T PO; -CHLORHEXIDINE GLUCONATE 2 % 1 PACK (2 CLOTHS) TOPICAL PRN; -CIPR500T2 PO; -DO NOT ADM ANY ANTICOAGULANT DRUGS PRN; -FAMOTIDINE 20 MG/2 ML VIAL ONE; -HYDR12.57 PO; -INSULIN HUMAN REGULAR 1,000 UNITS/10 ML VIAL SQ PRN; -IOHEXOL 350 MG/ML 50 ML BTL (for RAD DIAG) OTHER ONE; -LACTATED RINGER'S 1000 ML INJ 1,000 ML IV ONE; -LACTATED RINGER'S 1000 ML IV PRN; -LEVA500T20 PO; -LEVO500T8 PO; -METOPROLOL TARTRATE 25 MG TAB PO PRN; -MIDAZOLAM HCL 2 MG/2 ML VIAL IV ONE; -ONDANSETRON HCL 4 MG/2 ML VIAL IV PUSH ONE; -ONDANSETRON HCL 4 MG/2 ML VIAL IV PUSH PRN; -POVIDONE IODINE 5% (ANTISEPSIS KIT) 4 APPLICATIONS EACH NARE PRN; -PROMETHAZINE INJ 25 MG/ML VIAL ONE; -PROPOFOL 100 MG/10 ML INJ IV ONE; -SODIUM CHLORID 0.9% 500 ML IV PRN; -ceFAZolin 2 GM PREMIX 50 ML IV SCH; -oxyCODONE/ACETAMINOPHEN 5 MG/325 MG TAB PO PRN
[2017-05-06 17:50] VITALS: BP 113/65; PULSE 144; RESP 16; RESP 28; TEMP 103; O2SAT 94
[2017-05-06] MEDS ORDERED: SODIUM CHLOR 0.9% 1000 ML INJ 700 ML IV ONE (18:08)
[2017-05-06] MEDS ORDERED: SODIUM CHLOR 0.9% 1000 ML INJ 1,000 ML IV ONE ×3 (18:08→21:45)
--- NOTE | 2017-05-06 18:10 | PD ---
HPI Chief Complaint: GI Complaint Time Seen by Provider: 18:10 Travel History International Travel<30 days: No Contact w/Intl Traveler<30days: No Traveled to known affect area: No History of Present Illness HPI This is a 46-year-old female presents for evaluation of fever, nausea, dizziness and lightheadedness. The patient underwent cystoscopy, left stent removal, left retrograde pyelogram, left ureteroscopy with fulguration of residual mass and placement a long-term left ureteral stent performed by Dr. Aguilar. Her current symptoms have been ongoing since this morning. She reports that she had some vomiting yesterday but that has resolved. She has had a decreased appetite today. She endorses some pressure in the left side of her abdomen. She reports a slight cough and sore throat today as well. She reports some dysuria yesterday which has resolved. She has no other complaints at this time. PFSH Past Medical History Hx Anticoagulant Therapy: No Arthritis: No Asthma: No Autoimmune Disease: No Blood Disorders: No Anxiety: No Depression: No Heart Rhythm Problems: No Cancer: Yes (RIGHT BREAST CANCER) Cardiovascular Problems: No High Cholesterol: No Chemotherapy: Yes Chest Pain: No Congestive Heart Failure: No COPD: No Cerebrovascular Accident: No Diabetes: No Diminished Hearing: No Endocrine: No Gastrointestinal Disorders: Yes (HX IBS) GERD: No Glaucoma: No Genitourinary: No Headaches: No Hepatitis: No Hiatal Hernia: No Hypertension: No Immune Disorder: No Kidney Stones: No Musculoskeletal: No Neurologic: Yes (EPILEPSY) Psychiatric: No Reproductive: No Respiratory: No Myocardial Infarction: No Radiation Therapy: No Renal Failure: No Seizures: Yes Sickle Cell Disease: No Sleep Apnea: No Thyroid Disease: No Ulcer: No ?: Not : 2 Para: 2 Ovarian Cysts: Yes (REMOVED FROM LEFT OVARY 1995) Past Surgical History Abdominal Surgery: No AICD: No Body Medical Devices: KIDNEY STENTS Cardiac Surgery: No Ear Surgery: No Endocrine Surgery: No Eye Surgery: No Genitourinary Surgery: Yes (LEFT KIDNEY 2 STENTS, LEFT NEPHRO TUBES X2, stents removed from kidney) Gynecologic Surgery: Yes (PARTIAL HYSTERECTOMY) Hysterectomy: Yes Joint Replacement: No Neurologic Surgery: No Oral Surgery: No Pacemaker: No Thoracic Surgery: Yes (LUMPECTOMY RIGHT BREAST 2006) Other Surgery: Yes (RIGHT BREAST CA SURGERY ) Social History Alcohol Use: No Tobacco Use: No Substance Use: No Allergies-Medications (Allergen,Severity, Reaction): Coded Allergies: meperidine (Verified Allergy, Severe, Respiratory Failure, 05/06/17) azithromycin (Verified Allergy, Intermediate, Hives, 05/06/17) Reported Meds & Prescriptions Reported Meds & Active Scripts Active Keflex (Cephalexin) 250 Mg Cap 250 Mg PO TID Percocet (Oxycodone-Acetaminophen) 5-325 mg Tab 1-2 Tab PO Q6H PRN Reported Cranberry Urinary Comfort (Vitamins C & E) 1 Cap 1 Cap PO DAILY One Daily For Women (Multiple Vitamins W/ Minerals) 1 Tab Tab 2 Tab PO DAILY Tegretol (Carbamazepine) 200 Mg Tab 200 Mg PO DIRECTED 400MG AM 200MG AFTERNOON 400MG HS Review of Systems Except as stated in HPI: all other systems reviewed are Neg Physical Exam Narrative GENERAL: This is a well-developed well-nourished female who is in no acute distress. She is tachycardic and initial examination. SKIN: Warm and dry. HEAD: Atraumatic. Normocephalic. EYES: Pupils equal and round. No scleral icterus. No injection or drainage. ENT: No nasal bleeding or discharge. Mucous membranes pink and moist. NECK: Trachea midline. No JVD. CARDIOVASCULAR: Regular rate and rhythm. No murmur appreciated. RESPIRATORY: No accessory muscle use. Clear to auscultation. Breath sounds equal bilaterally. GASTROINTESTINAL: Abdomen soft, mild left-sided abdominal tenderness without guarding. MUSCULOSKELETAL: No obvious deformities. No clubbing. No cyanosis. No edema. NEUROLOGICAL: Awake and alert. No obvious cranial nerve deficits. Motor grossly within normal limits. Normal speech. PSYCHIATRIC: Appropriate mood and affect; insight and judgment normal. Data Data Last Documented VS Vital Signs Date Time Temp Pulse Resp B/P (MAP) Pulse Ox O2 Delivery O2 Flow Rate FiO2 05/06/17 20:13 99.5 115 22 95/54 (68) 96 Room Air Orders Orders Electrocardiogram (05/06/17 18:08) Complete Blood Count With Diff (05/06/17 18:08) Comprehensive Metabolic Panel (05/06/17 18:08) Prothrombin Time / Inr (Pt) (05/06/17 18:08) Act Partial Throm Time (Ptt) (05/06/17 18:08) Lactic Acid Sepsis Protocol (05/06/17 18:08) Urinalysis - C+S If Indicated (05/06/17 18:08) Influenzae A/B Antigen (05/06/17 18:08) Blood Culture (05/06/17 18:08) Chest, Single Ap (05/06/17 18:08) Blood Glucose (05/06/17 18:08) Ecg Monitoring (05/06/17 18:08) Iv Access Insert/Monitor (05/06/17 18:08) Oximetry (05/06/17 18:08) Oxygen Administration (05/06/17 18:08) Ct Abd/Pel W Iv Contrast(Rout) (05/06/17 18:08) Sodium Chlor 0.9% 1000 Ml Inj (Ns 1000 M (05/06/17 18:08) Sodium Chlor 0.9% 1000 Ml Inj (Ns 1000 M (05/06/17 18:08) Sodium Chlor 0.9% 1000 Ml Inj (Ns 1000 M (05/06/17 18:08) Acetaminophen (Tylenol) (05/06/17 18:15) Ondansetron Inj (Zofran Inj) (05/06/17 18:15) Group A Rapid Strep Screen (05/06/17 18:10) Piperacil-Tazo 3.375 Gm Premix (Zosyn 3. (05/06/17 18:15) Vancomycin Inj (Vancomycin Inj) (05/06/17 18:15) Strep Culture (Group A) (05/06/17 18:28) Iohexol 350 Inj (Omnipaque 350 Inj) (05/06/17 19:30) Potassium Chloride (Kcl) (05/06/17 19:45) Urine Culture (05/06/17 19:35) Npo After Midnight W/ Po Meds (05/07/17 Breakfast) Admit Order (Ed Use Only) (05/06/17 20:43) Consult Urology (05/06/17 ) Labs Laboratory Tests Test 05/06/17 18:20 05/06/17 19:35 White Blood Count 23.5 TH/MM3 Red Blood Count 4.30 MIL/MM3 Hemoglobin 12.9 GM/DL Hematocrit 38.2 % Mean Corpuscular Volume 88.9 FL Mean Corpuscular Hemoglobin 30.1 PG Mean Corpuscular Hemoglobin Concent 33.8 % Red Cell Distribution Width 13.1 % Platelet Count 239 TH/MM3 Mean Platelet Volume 7.1 FL Neutrophils (%) (Auto) 87.3 % Lymphocytes (%) (Auto) 3.7 % Monocytes (%) (Auto) 8.9 % Eosinophils (%) (Auto) 0.0 % Basophils (%) (Auto) 0.1 % Neutrophils # (Auto) 20.5 TH/MM3 Lymphocytes # (Auto) 0.9 TH/MM3 Monocytes # (Auto) 2.1 TH/MM3 Eosinophils # (Auto) 0.0 TH/MM3 Basophils # (Auto) 0.0 TH/MM3 CBC Comment DIFF FINAL Differential Comment Prothrombin Time 11.4 SEC Prothromb Time International Ratio 1.0 RATIO Activated Partial Thromboplast Time 27.4 SEC Blood Urea Nitrogen 14 MG/DL Creatinine 1.35 MG/DL Random Glucose 171 MG/DL Total Protein 7.8 GM/DL Albumin 3.1 GM/DL Calcium Level 8.5 MG/DL Alkaline Phosphatase 112 U/L Aspartate Amino Transf (AST/SGOT) 34 U/L Alanine Aminotransferase (ALT/SGPT) 34 U/L Total Bilirubin 0.4 MG/DL Sodium Level 137 MEQ/L Potassium Level 3.2 MEQ/L Chloride Level 100 MEQ/L Carbon Dioxide Level 26.2 MEQ/L Anion Gap 11 MEQ/L Estimat Glomerular Filtration Rate 42 ML/MIN Lactic Acid Level 3.3 mmol/L Urine Color YELLOW Urine Turbidity CLOUDY Urine pH 6.0 Urine Specific [place] 1.020 Urine Protein 100 mg/dL Urine Glucose (UA) TRACE mg/dL Urine Ketones NEG mg/dL Urine Occult Blood MOD Urine Nitrite NEG Urine Bilirubin NEG Urine Urobilinogen LESS THAN 2.0 MG/DL Urine Leukocyte Esterase LARGE Urine RBC 104 /hpf Urine WBC /hpf Urine Squamous Epithelial Cells 3 /hpf Urine Amorphous Sediment RARE Urine Bacteria MANY /hpf Urine Hyaline Casts 7 /lpf Urine Mucus MANY /lpf Microscopic Urinalysis Comment CATH-CULTURE IND MDM Medical Decision Making Medical Screen Exam Complete: Yes Emergency Medical Condition: Yes Medical Record Reviewed: Yes Interpretation(s) EKG sinus tachycardia rate 120 Differential Diagnosis Sepsis, bacteremia, pyelonephritis, perinephric abscess, pneumonia, influenza Narrative Course 46-year-old female who yesterday underwent Cystoscopy, left stent removal, left retrograde pyelogram, left ureteroscopy with fulguration of residual mass consistent with endometrioma and placement of intermediate project manager left ureteral stent presents today with fever, nausea, lightheadedness which started this morning. On initial examination she is tachycardic with a heart rate in the 130s, temperature 103. She has mild left-sided abdominal tenderness to palpation. The patient be given broad-spectrum antibiotics, 3 L of IV fluids. Plan is for basic lab work, chest x-ray, CT abdomen and pelvis, the patient with recent ECG monitor and pulse oximetry. Tylenol administered. Chest x-ray reveals perihilar infiltrates. Lab work is notable for a WBC count of 23.5 with 87% neutrophils, potassium 3.2, creatinine 1.35, lactic acid 3.3. CT abdomen and pelvis reveals: CONCLUSION: 1. Dilated thick-walled lower pole moiety and lower pole ureter on the left with perinephric and periureteral inflammatory changes suggesting obstruction and probable infection of the lower pole moiety. There is a focal area of attenuation within the lower pole of the left kidney measuring 3.6 x 2.6 cm suggestive of possible abscess. Discussed the findings with urologist educational adviser Dr. Honeycutt who would like the patient admitted to medicine with consultation to himself. The patient is now admitted. Sepsis Criteria SIRS Criteria (2 or more): Temp > 100.9 or < 96.8, Heart rate over 90, WBC > 58601, < 4000 or > 10% bands Sepsis Criteria (SIRS+source): Infect source susp/known Severe Sepsis (+one): Lactate >2 Diagnosis Primary Impression: Severe sepsis Additional Impression: Renal abscess Admitting Information Admitting Physician Requests: Admit Clifford Blake May 06, 2017 18:10
[2017-05-06] MEDS ORDERED: ONDANSETRON HCL 4 MG/2 ML VIAL IV PUSH ONE (18:15)
[2017-05-06] MEDS ORDERED: ACETAMINOPHEN 325 MG TAB PO ONE (18:15)
[2017-05-06] MEDS ORDERED: PIPERACIL-TAZO 3.375 GM PREMIX 50 ML IV ONE (18:15)
[2017-05-06] MEDS ORDERED: VANCOMYCIN INJ 1,000 MG in SODIUM CHLOR 0.9% 250 ML INJ 250 ML IV ONE (18:15)
[2017-05-06 18:37] VITALS: BP 115/72; PULSE 124; RESP 20; TEMP 102; O2SAT 96
[2017-05-06 18:39] LABS: AUTOMATED NEUTROPHIL # 20.5 TH/MM3 (1.8-7.7); BASOPHIL % 0.1 % (0.0-2.0); HEMATOCRIT 38.2 % (35.0-46.0); HEMO FLAGS DIFF FINAL; LYMPH % 3.7 % (9.0-44.0); LYMPHOCYTE # 0.9 TH/MM3 (1.0-4.8); MEAN CELL VOLUME 88.9 FL (80.0-100.0); MEAN CORPUSCULAR HEMOGLOBIN 30.1 PG (27.0-34.0); MEAN CORPUSCULAR HGB CONC 33.8 % (32.0-36.0); MONO % 8.9 % (0.0-8.0); NEUT % 87.3 % (16.0-70.0); PLATELET COUNT 239 TH/MM3 (150-450); RED CELL DISTRIBUTION WIDTH 13.1 % (11.6-17.2); WHITE BLOOD COUNT 23.5 TH/MM3 (4.0-11.0)
[2017-05-06 18:51] LABS: APTT (PATIENT) 27.4 SEC (24.3-30.1); PROTHROMBIN TIME - PATIENT 11.4 SEC (9.8-11.6)
[2017-05-06 18:58] LABS: ANION GAP 11 MEQ/L (5-15); AST (GOT) 34 U/L (15-37); BICARBONATE 26.2 MEQ/L (21.0-32.0); BLOOD UREA NITROGEN 14 MG/DL (7-18); CHLORIDE 100 MEQ/L (98-107); GLOMERULAR FILTRATION RATE 42 ML/MIN (>89); POTASSIUM 3.2 MEQ/L (3.5-5.1); SODIUM (NA) 137 MEQ/L (136-145)
[2017-05-06 19:01] LABS: ALKALINE PHOSPHATASE 112 U/L (45-117); ALT (GPT) 34 U/L (10-53); TOTAL BILIRUBIN ADULT 0.4 MG/DL (0.2-1.0)
--- NOTE | 2017-05-06 19:10 | RADRPT ---
EXAM DATE/TIME: 05/06/2017 18:31 [facility] COMPARISON: CHEST SINGLE AP, March 19, 2013, 19:24. INDICATIONS : Fever and cough. MEDICAL HISTORY : Irritable bowel syndrome. Carcinoma, breast. Endometriosis SURGICAL HISTORY : Right lumpectomy, hysterectomy. ENCOUNTER: Initial ACUITY: 1 day PAIN SCORE: 0/10 LOCATION: Bilateral chest FINDINGS: Perihilar infiltrates are noted consistent with mild pulmonary vascular congestion versus pneumonia. Clinical correlation is recommended. The heart is mildly prominent. There is a poor inspiratory resu lt. Degenerative changes and scoliosis of the thoracolumbar spine are noted. CONCLUSION: 1. Perihilar infiltrates consistent with pulmonary vascular congestion versus pneumonia. Clinical co rrelation is recommended. 2. Mild cardiomegaly. 3. Degenerative changes and scoliosis of the thoracolumbar spine. Rivera Ramirez MD on May 06, 2017 at 19:04 Board Certified Radiologist. This report was verified electronically.
[2017-05-06] MEDS ORDERED: IOHEXOL 350 MG/ML 10 ML VIAL (for RAD DIAG) IVCONTRAST ONE (19:30)
[2017-05-06] MEDS ORDERED: POTASSIUM CHLORIDE 20 MEQ CONTROLLED RELEASE TAB PO ONE (19:45)
[2017-05-06 19:48] LABS: BACTERIA, URINE MANY /hpf; BLOOD, URINE MOD (NEG); COMMENT (UR) CATH-CULTURE IND; CULTURE IF INDICATED CATH CULTURE IND; GLUCOSE,URINE TRACE mg/dL (NEG); HYALINE CAST, URINE 7 /lpf (RARE); KETONE, URINE NEG (NEG); MUCUS URINE MANY /lpf (OCC); NITRITE,URINE NEG (NEG); SQUAMOUS EPITHELIAL CELL URINE 3 /hpf (0-5); URINE COLOR YELLOW (YELLW/STRAW)
--- NOTE | 2017-05-06 19:58 | RADRPT ---
EXAM DATE/TIME: 05/06/2017 19:11 [place] COMPARISON: CT ABDOMEN & PELVIS W/O CONTRAST, August 31, 2016, 10:58. INDICATIONS : Patient had ureteral stent placed yesterday and since has had left side abdominal pain, fever, nausea and vomiting. IV CONTRAST: 70 cc Omnipaque 350 (iohexol) IV ORAL CONTRAST: No oral contrast ingested. RADIATION DOSE: 10.27 CTDIvol (mGy) MEDICAL HISTORY : Irritable bowel syndrome. Carcinoma, breast. Endometriosis. SURGICAL HISTORY : Hysterectomy. Left oophorectomy. Right lumpectomy. Kidney stents. ENCOUNTER: Initial ACUITY: 1 day PAIN SCALE: 8/10 LOCATION: Left abdomen. TECHNIQUE: Volumetric scanning of the abdomen and pelvis was performed. Using automated exposure control and ad justment of the mA and/or kV according to patient size, radiation dose was kept as low as reasonably achievable to obtain optimal diagnostic quality images. DICOM format image data is available electro nically for review and comparison. FINDINGS: There is a duplicated collecting system on the left. Internal ureteral stent has its proximal loop i n the upper pole moiety and it distal loop at the junction of the distal ureter and urinary bladder. The lower pole moiety is hydronephrotic. The lower pole ureter is also thickened, inflamed and dila shannan. The lower pole collecting system is also thickened suggesting acute obstruction and probable in fection. There is a nodular area of decreased attenuation involving the lower pole of the left kidne y measuring 3.6 x 2.6 cm consistent with possible focal renal abscess. Perinephric fluid and inflamm atory changes are noted on the left. The liver, spleen, pancreas, gallbladder and adrenal glands are unchanged compared to the previous ex amination. The abdominal aorta and inferior vena cava are normal. The patient is status post hyster ectomy. No bowel obstruction is noted. The visualized lung bases demonstrate scattered fibrotic scarring and/or atelectasis posteriorly. CONCLUSION: 1. Dilated thick-walled lower pole moiety and lower pole ureter on the left with perinephric and jenise ureteral inflammatory changes suggesting obstruction and probable infection of the lower pole moiety. There is a focal area of attenuation within the lower pole of the left kidney measuring 3. 6 x 2.6 cm suggestive of possible abscess. 2. Internal ureteral stent within the upper pole moiety on the left which is nondilated. 3. Fibrotic scarring and/or atelectasis within the posterior lung bases. Rivera Ramirez MD on May 06, 2017 at 19:41 Board Certified Radiologist. This report was verified electronically.
[2017-05-06 20:13] VITALS: BP 95/54; PULSE 115; RESP 22; TEMP 99.5; O2SAT 96
[2017-05-06 20:32] LABS: LACTIC ACID GHOST NOT REPORTABLE
--- NOTE | 2017-05-06 21:11 | HHI.HP ---
HPI Service Family Medicine Primary Care Physician Fox Rosa MD Admission Diagnosis severe sepsis, pyelonephritis, renal abscess Diagnoses: International Travel<30 Days: No Contact w/Intl Traveler<30days: No Known Affected Area: No History of Present Illness Mrs. Mcknight is a 46 yo F with history of endometriosis, seizure disorder, and ureteral obstruction who presents with fever and altered mental status. Patient reportedly had L ureteral stent placement 05/[address] Aguilar. Patient reportedly was found this evening by her with T 104.5F, "goofy"/ confused, with difficulty ambulating, some SOB/coughing, tiredness. Patient does not report associated abdominal pain, back pain, or dysuria. Patient states that she was prescribed Keflex yesterday; she filled medication this morning. [Interval history: Since arrival at ED and treatment with fluids/antibiotics, patient reportedly improved. Patient given ~3L NS bolus, Vancomycin, and Zosyn; sepsis protocol initiated] Review of Systems Constitutional: COMPLAINS OF: Fever, DENIES: Chills Eyes: DENIES: Diplopia, Eye pain Respiratory: COMPLAINS OF: Cough, Shortness of breath Cardiovascular: DENIES: Chest pain, Syncope Gastrointestinal: DENIES: Abdominal pain, Constipation Genitourinary: DENIES: Urgency, Dysuria Musculoskeletal: DENIES: Muscle aches, Back pain Integumentary: DENIES: Abnormal pigmentation, Rash Neurologic: DENIES: Headache, Paresthesias, Seizures (not for ~1 year) Psychiatric: COMPLAINS OF: Confusion, DENIES: Mood changes Past Family Social History Past Medical History Per Patient/EMR Endometriosis T2DM Pelvic mass/ureteral obstruction Epilepsy Past Surgical History Per Patient/EMR 04/2017- Recent Cystoscopy, left stent removal, left retrograde pyelogram, left ureteroscopy with fulguration of residual mass consistent with endometrioma and placement of fci left ureteral stent Breast biopsy Hysterectomy Lumpectomy in 2005 Reported Medications Reported Meds & Active Scripts Active Keflex (Cephalexin) 250 Mg Cap 250 Mg PO TID Percocet (Oxycodone-Acetaminophen) 5-325 mg Tab 1-2 Tab PO Q6H PRN Reported Cranberry Urinary Comfort (Vitamins C & E) 1 Cap 1 Cap PO DAILY One Daily For Women (Multiple Vitamins W/ Minerals) 1 Tab Tab 2 Tab PO DAILY Tegretol (Carbamazepine) 200 Mg Tab 200 Mg PO DIRECTED 400MG AM 200MG AFTERNOON 400MG HS Allergies: Coded Allergies: meperidine (Verified Allergy, Severe, Respiratory Failure, 05/06/17) azithromycin (Verified Allergy, Intermediate, Hives, 05/06/17) Family History Mother- Epilepsy Social History No smoking, drinking, or illicit drugs Physical Exam Vital Signs Vital Signs Date Time Temp Pulse Resp B/P (MAP) Pulse Ox O2 Delivery O2 Flow Rate FiO2 05/06/17 20:13 99.5 115 22 95/54 (68) 96 Room Air 05/06/17 18:37 102.0 124 20 115/72 (86) 96 Room Air 05/06/17 18:37 97 Room Air 05/06/17 17:54 (81) 05/06/17 17:50 103.0 144 28 113/65 (81) 94 Physical Exam GENERAL: Patient appears comfortable SKIN: Warm and dry, no rashes appreciated EYES: No scleral icterus, injection, or drainage. HENT: Head: Normocephalic. Mouth: No lesions appreciated. Pharynx: Benign exam without erythema or exudate. NECK: No appreciated lymphadenopathy or thyromegaly CARDIOVASCULAR: Tachycardic, regular rhythm without murmurs. Normal peripheral perfusion in lower extremities. RESPIRATORY: Normal respiratory rate. Lungs clear to auscultation bilaterally. GASTROINTESTINAL: Abdomen soft, nondistended, nontender. Bowel sounds normal. MUSCULOSKELETAL: No lower extremity swelling. No appreciated calf asymmetry. NEURO/PSYCH: Awake, alert, and oriented. Cranial nerves grossly normal. Grossly normal motor and sensory function. Laboratory Laboratory Tests Test 05/06/17 18:20 05/06/17 19:35 White Blood Count 23.5 Red Blood Count 4.30 Hemoglobin 12.9 Hematocrit 38.2 Mean Corpuscular Volume 88.9 Mean Corpuscular Hemoglobin 30.1 Mean Corpuscular Hemoglobin Concent 33.8 Red Cell Distribution Width 13.1 Platelet Count 239 Mean Platelet Volume 7.1 Neutrophils (%) (Auto) 87.3 Lymphocytes (%) (Auto) 3.7 Monocytes (%) (Auto) 8.9 Eosinophils (%) (Auto) 0.0 Basophils (%) (Auto) 0.1 Neutrophils # (Auto) 20.5 Lymphocytes # (Auto) 0.9 Monocytes # (Auto) 2.1 Eosinophils # (Auto) 0.0 Basophils # (Auto) 0.0 CBC Comment DIFF FINAL Differential Comment Prothrombin Time 11.4 Prothromb Time International Ratio 1.0 Activated Partial Thromboplast Time 27.4 Blood Urea Nitrogen 14 Creatinine 1.35 Random Glucose 171 Total Protein 7.8 Albumin 3.1 Calcium Level 8.5 Alkaline Phosphatase 112 Aspartate Amino Transf (AST/SGOT) 34 Alanine Aminotransferase (ALT/SGPT) 34 Total Bilirubin 0.4 Sodium Level 137 Potassium Level 3.2 Chloride Level 100 Carbon Dioxide Level 26.2 Anion Gap 11 Estimat Glomerular Filtration Rate 42 Lactic Acid Level 3.3 Urine Color YELLOW Urine Turbidity CLOUDY Urine pH 6.0 Urine Specific Dexter 1.020 Urine Protein 100 Urine Glucose (UA) TRACE Urine Ketones NEG Urine Occult Blood MOD Urine Nitrite NEG Urine Bilirubin NEG Urine Urobilinogen LESS THAN 2.0 Urine Leukocyte Esterase LARGE Urine RBC 104 Urine WBC Urine Squamous Epithelial Cells 3 Urine Amorphous Sediment RARE Urine Bacteria MANY Urine Hyaline Casts 7 Urine Mucus MANY Microscopic Urinalysis Comment CATH-CULTURE IND Date/Time Source Procedure Growth Status 05/06/17 18:25 Blood Peripheral Aerobic Blood Culture Pending Received 05/06/17 18:25 Blood Peripheral Anaerobic Blood Culture Pending Received 05/06/17 18:28 Throat Group A Streptococcus Screen Pending Received 05/06/17 19:35 Urine Catheterized Urine Urine Culture Pending Received Result Diagram: 05/06/17181905/06/171819 Imaging Last Impressions Chest X-Ray 05/06/171807 Signed Impressions: Service Date/Time: Saturday, May 06, 2017 18:31 - CONCLUSION: 1. Perihilar infiltrates consistent with pulmonary vascular congestion versus pneumonia. Clinical correlation is recommended. 2. Mild cardiomegaly. 3. Degenerative changes and scoliosis of the thoracolumbar spine. Rivera Ramirez MD Abdomen/Pelvis CT 05/06/171807 Signed Impressions: Service Date/Time: Saturday, May 06, 2017 19:11 - CONCLUSION: 1. Dilated thick-walled lower pole moiety and lower pole ureter on the left with perinephric and periureteral inflammatory changes suggesting obstruction and probable infection of the lower pole moiety. There is a focal area of attenuation within the lower pole of the left kidney measuring 3.6 x 2.6 cm suggestive of possible abscess. 2. Internal ureteral stent within the upper pole moiety on the left which is nondilated. 3. Fibrotic scarring and/or atelectasis within the posterior lung bases. MD Becky Zamorano VTE Risk Assessment Caprini VTE Risk Assessment: Mod/High Risk (score >= 2) VTE Pharm Contraindication: suspect stent removal 05/08 Caprini Risk Assessment Model Point Value = 1 Point Value = 2 Point Value = 3 Point Value = 5 Age 41-60 Minor surgery BMI > 25 kg/m2 Swollen legs Varicose veins or History of unexplained or recurrent spontaneous Oral contraceptives or hormone replacement Sepsis (< 1 month) Serious lung disease, including pneumonia (< 1 month) Abnormal pulmonary function Acute myocardial infarction Congestive heart failure (< 1 month) History of inflammatory bowel disease Medical patient at bed rest Age 61-74 Arthroscopic surgery Major open surgery (> 45 min) Laparoscopic surgery (> 45 min) Malignancy Confined to bed (> 72 hours) Immobilizing plaster cast Central venous access Age >= 75 History of VTE Family history of VTE Factor V Leiden Prothrombin [id number] Lupus anticoagulant Anticardiolipin antibodies Elevated serum homocysteine Heparin-induced thrombocytopenia Other congenital or acquired thrombophilia Stroke (< 1 month) Elective arthroplasty Hip, pelvis, or leg fracture Acute spinal cord injury (< 1 month) Prophylaxis Regimen Total Risk Factor Score Risk Level Prophylaxis Regimen 0-1 Low Early ambulation 2 Moderate Order ONE of the following: *Sequential Compression Device (SCD) *Heparin 5000 units SQ BID 3-4 Higher Order ONE of the following medications: *Heparin 5000 units SQ TID *Enoxaparin/Lovenox 40 mg SQ daily (WT < 150 kg, CrCl > 30 mL/min) *Enoxaparin/Lovenox 30 mg SQ daily (WT < 150 kg, CrCl > 10-29 mL/min) *Enoxaparin/Lovenox 30 mg SQ BID (WT < 150 kg, CrCl > 30 mL/min) AND/OR *Sequential Compression Device (SCD) 5 or more Highest Order ONE of the following medications: *Heparin 5000 units SQ TID (Preferred with Epidurals) *Enoxaparin/Lovenox 40 mg SQ daily (WT < 150 kg, CrCl > 30 mL/min) *Enoxaparin/Lovenox 30 mg SQ daily (WT < 150 kg, CrCl > 10-29 mL/min) *Enoxaparin/Lovenox 30 mg SQ BID (WT < 150 kg, CrCl > 30 mL/min) AND *Sequential Compression Device (SCD) Assessment and Plan Assessment and Plan Ms. Mcknight is a 46 yo F with: Code Status Full code Problem List: (1) Severe sepsis ICD Codes: A41.9 - Sepsis, unspecified organism; R65.20 - Severe sepsis without septic shock Status: Acute Plan: Impression: Febrile on admission with T 103 F, HR 144, BP with MAP 81. reports improved mental status since admission CXR with pulmonary vascular congestion vs pneumonia. A/P CT with L lower pole with perinephric and periureteral inflammatory changes suggesting obstruction and probable infection of lower pole moiety. Decreased attenuation of lower pole of L kidney measuring 3.6x2.6cm suggestive of possible abscess. Internal ureteral stent within upper pole on L which is nondilated. Fibrotic scarring and/or atelectasis within posterior lung bases -ABG with pH 7.43, pCO2 30, base excess -3.8 -Trend Lactic acid -3.3 -> 2.3 -Continue sepsis protocol -IVF -Will order 4 total bolus of NS followed by maintenance NS -IF decreasing MAP in upper 60's will transfer -Monitor blood cultures, urine cultures -Empiric antibiotics -Will give empiric Vancomycin -Will give empiric Zosyn -ID consulted -Urology consulted -Per discussion between ED and Urology, no intervention planned for tonight -Initially, I planned to place patient in unit but since lactic acid downtrending, MAP improving from upper 60's to 90's, I am hopeful that patient may not require pressors -I will re-evaluate in several hours; if patient has downtrending MAP or uptrending LA will transfer to ICU (2) Ureteral obstruction, left ICD Codes: N13.5 - Crossing vessel and stricture of ureter without hydronephrosis Status: Acute Plan: Impression: s/p cystoscopy, left stent removal, left retrograde pyelogram , left ureteroscopy with fulguration of residual mass consistent with endometrioma and placement of [employer] left ureteral stent by Dr. Aguilar 05/05 -Per EMR, plans for L uretal stent to be in place for minimum of 6 weeks (3) Seizure disorder ICD Codes: G40.909 - Seizure disorder Status: Chronic Plan: Impression: History of seizure disorder on home Tegretol -Continue home Tegretol (4) DVT PPX Plan: Bilateral SCD's (5) Fluids, Electrolytes, and Nutrition Plan: Fluids: s/p NS x4 liters -Continue maintenance NS -If decreasing MAP's will transfer for pressors Electrolytes: monitor and replete as needed Nutrition: NPO; suspect need for stent removal Physician Certification 2 Midnight Certification Type: Admission for Inpatient Services Order for Inpatient Services The services are ordered in accordance with Medicare regulations or non- Medicare payer requirements, as applicable. In the case of services not specified as inpatient-only, they are appropriately provided as inpatient services in accordance with the 2-midnight benchmark. Estimated LOS (days): 3 days is the estimated time the patient will need to remain in the hospital, assuming treatment plan goals are met and no additional complications. Post-Hospital Plan: Home Giuseppe Bragg MD, R3 May 06, 2017 21:11
[2017-05-06] MEDS ORDERED: SODIUM CHLORIDE 0.9% FLUSH 10 ML FLUSH IV FLUSH PRN (21:30)
[2017-05-06] MEDS ORDERED: SODIUM CHLOR 0.9% 1000 ML INJ 1,000 ML IV SCH (21:45)
[2017-05-06 22:26] VITALS: TEMP 101.4
[2017-05-06 22:30] VITALS: O2SAT 99
[2017-05-06] MEDS ORDERED: Vancomycin Consult Pharmacy 1 EA OTHER SCH (22:30)
[2017-05-06 22:32] LABS: BLOOD GAS BASE EXCESS -3.8 mmol/L (-2-2); BLOOD GAS CARBOXYHEMOGLOBIN 1.6 % (0-4); BLOOD GAS HCO3 20 mmol/L (22-26); BLOOD GAS METHEMOGLOBIN 0.8 % (0-2); BLOOD GAS O2 HGB SATURATION 92 % (90-100); BLOOD GAS OXYGEN CONTENT 13.4 Vol % (12.0-20.0); BLOOD GAS PCO2 30 mmHg (38-42); BLOOD GAS PO2 72 mmHG (61-120); BLOOD GAS TOTAL HGB 10.3 G/DL (12.0-16.0); CRITICAL VALUE NO; DRAW SITE LT RADIAL; FIO2 21 %; NUMBER OF ARTERIAL PUNCTURES 2; OXYGEN DEVICE ROOM AIR; STAT YES; TEMP CORR TO 98.6; ULNAR PULSE PRESENT
[2017-05-06 22:45] VITALS: BP 129/72; PULSE 122; RESP 18; TEMP 99.1; O2SAT 97
[2017-05-07] VITALS (11 sets, daily range): BP systolic 105–163; BP diastolic 63–86; PULSE 97–114; RESP 16–22; TEMP 97.6–103; O2SAT 92–98
[2017-05-07] MEDS: ACETAMINOPHEN 500 MG CPLT PO PRN ×3 (00:38→20:48)
[2017-05-07 01:53] LABS: HEMATOCRIT 30.6 % (35.0-46.0); MEAN CELL VOLUME 89.9 FL (80.0-100.0); MEAN CORPUSCULAR HEMOGLOBIN 28.9 PG (27.0-34.0); MEAN CORPUSCULAR HGB CONC 32.2 % (32.0-36.0); PLATELET COUNT 165 TH/MM3 (150-450); RED CELL DISTRIBUTION WIDTH 12.8 % (11.6-17.2); WHITE BLOOD COUNT 19.3 TH/MM3 (4.0-11.0)
[2017-05-07 01:54] LABS: HEMO FLAGS AUTO DIFF
--- NOTE | 2017-05-07 01:58 | HHI.FPPN ---
Addendum to progress note ADDENDUM Reason for addendum: Additonal documentation Additional information Patient re-evaluated: Febrile to 102.8F, HR low 120's, MAP ~80, O2 sat 94% A/P: Stable at this time; will wait for Lactic acid and plan to transfer if elevated. Otherwise, will repeat BP in ~1 hr -Will continue NS at 130 ml/hr since already s/p 4 L NS boluses Giuseppe Bragg MD, R3 May 07, 2017 01:58
[2017-05-07 02:12] LABS: BICARBONATE 21.9 MEQ/L (21.0-32.0); POTASSIUM 3.1 MEQ/L (3.5-5.1); TOTAL BILIRUBIN ADULT 0.3 MG/DL (0.2-1.0)
[2017-05-07 02:17] LABS: CALCIUM-PROTEIN CORRECTED 7.3 MG/DL (8.5-10.1)
[2017-05-07 02:30] LABS: BANDS 15 % (0-6); NEUTROPHIL # MANUAL DIFF 18.5 TH/MM3 (1.8-7.7); POLYS (SEG NEUTROPHILS) 81 % (16-70); WBC DIFF SAMPLE 100
[2017-05-07] MEDS ORDERED: CALCIUM GLUCONATE INJ 1 GM in SODIUM CHLORIDE 0.9% INJ 100 ML IV ONE (02:30)
[2017-05-07] MEDS ORDERED: POTASSIUM CHLORIDE 20 MEQ CONTROLLED RELEASE TAB PO ONE (02:30)
[2017-05-07 02:31] LABS: PLATELET ESTIMATE SMEAR NORMAL (NORMAL); PLATELET MORPHOLOGY NORMAL (NORMAL); SCAN/DIFF FINAL DIFF MANUAL
[2017-05-07] MEDS: PIPERACIL-TAZO 3.375 GM PREMIX 50 ML IV SCH ×4 (03:10→20:48)
[2017-05-07] MEDS: NS + KCL 20 MEQ INJ 1,000 ML IV SCH ×2 (03:11→20:49)
[2017-05-07] MEDS ORDERED: VANCOMYCIN INJ 1,000 MG in SODIUM CHLOR 0.9% 250 ML INJ 250 ML IV SCH (08:00)
[2017-05-07] MEDS: PANTOPRAZOLE SODIUM 40 MG VIAL IV PUSH SCH (08:15)
[2017-05-07] MEDS: SODIUM CHLORIDE 0.9% FLUSH 10 ML FLUSH IV FLUSH SCH ×2 (08:16→21:00)
[2017-05-07] MEDS ORDERED: VANCOMYCIN INJ 1,750 MG in SODIUM CHLORID 0.9% 500 ML INJ 500 ML IV SCH (10:00)
[2017-05-07] MEDS ORDERED: SODIUM CHLOR 0.9% 1000 ML INJ 1,000 ML IV ONE (10:00)
[2017-05-07 10:23] LABS: BLOOD GAS CARBOXYHEMOGLOBIN 1.5 % (0-4); BLOOD GAS HCO3 21 mmol/L (22-26); BLOOD GAS METHEMOGLOBIN 1.1 % (0-2); BLOOD GAS O2 HGB SATURATION 90 % (90-100); BLOOD GAS OXYGEN CONTENT 12.4 Vol % (12.0-20.0); BLOOD GAS PCO2 30 mmHg (38-42); BLOOD GAS PO2 65 mmHg (61-120); BLOOD GAS TOTAL HGB 9.7 G/DL (12.0-16.0); CRITICAL VALUE NO; DRAW SITE LT RADIAL; FIO2 21 %; NUMBER OF ARTERIAL PUNCTURES 1; STAT NO; TEMP CORR TO 98.6; ULNAR PULSE PRESENT
--- NOTE | 2017-05-07 10:23 | HHI.FPPN ---
Subjective Remarks Patient febrile overnight, with the most recent temperature of 100.4. She remains tachycardic up to 109 this morning. She is currently tachypneic, but saturating 97% on RA. Blood pressure remains stable. She is feeling better since admission overall. She continues to have pain in her left CVA region and feels short of breath. She states that it feels difficult to get oxygen in and has felt this way for the past several days. She denies any cough, hemoptysis, pleurodynia, chest pain, nausea, or vomiting. She has had two episodes of watery diarrhea that appears yellowish/green since admission. (Marti Myers MD, R3) Objective Vitals Vital Signs Date Time Temp Pulse Resp B/P (MAP) Pulse Ox O2 Delivery O2 Flow Rate FiO2 05/07/17 09:23 Room Air 21 05/07/17 09:05 97 05/07/17 08:00 100.4 109 18 129/78 (95) 96 05/07/17 04:20 99.6 110 16 105/63 (77) 94 05/06/17 23:45 Room Air 05/06/17 22:45 99.1 122 18 129/72 (91) 97 05/06/17 22:43 05/06/17 22:30 99 21 05/06/17 22:26 101.4 05/06/17 20:13 99.5 115 22 95/54 (68) 96 Room Air 05/06/17 18:37 102.0 124 20 115/72 (86) 96 Room Air 05/06/17 18:37 97 Room Air 05/06/17 17:54 (81) 05/06/17 17:50 103.0 144 28 113/65 (81) 94 I/O 05/06/17 05/06/17 05/06/17 05/07/17 05/07/17 05/07/17 07:00 15:00 23:00 07:00 15:00 23:00 Intake Total 3000 ml 2019 ml Output Total 750 ml Balance 3000 ml 1269 ml Intake Oral 0 ml IV Total 3000 ml 2019 ml Output Urine Total 750 ml # Bowel Movements 4 (Marti Myers MD, R3) Result Diagram: 05/07/17 0141 05/07/17 0141 Imaging Last Impressions Chest X-Ray 05/06/171807 Signed Impressions: Service Date/Time: Saturday, May 06, 2017 18:31 - CONCLUSION: 1. Perihilar infiltrates consistent with pulmonary vascular congestion versus pneumonia. Clinical correlation is recommended. 2. Mild cardiomegaly. 3. Degenerative changes and scoliosis of the thoracolumbar spine. Rivera Ramirez MD Abdomen/Pelvis CT 05/06/171807 Signed Impressions: Service Date/Time: Saturday, May 06, 2017 19:11 - CONCLUSION: 1. Dilated thick-walled lower pole moiety and lower pole ureter on the left with perinephric and periureteral inflammatory changes suggesting obstruction and probable infection of the lower pole moiety. There is a focal area of attenuation within the lower pole of the left kidney measuring 3.6 x 2.6 cm suggestive of possible abscess. 2. Internal ureteral stent within the upper pole moiety on the left which is nondilated. 3. Fibrotic scarring and/or atelectasis within the posterior lung bases. Rivera Ramirez MD Objective Remarks GENERAL: Well-nourished, well-developed female patient in no acute distress. SKIN: Warm and dry. No rashes or lesions present. EYES: No scleral icterus. No conjunctival injection or drainage. Pupils equal, round, reactive to light and accommodation. Extraocular movements intact. THROAT: Moist mucous membranes. NECK: Supple, trachea midline. CARDIOVASCULAR: Tachycardic with regular rhythm and without murmurs, gallops, or rubs. Strong radial and pedal pulses. CHEST: Symmetric chest expansion with respiration. RESPIRATORY: Tachypneic, however breath sounds are clear to auscultation bilaterally. No accessory muscle use. No wheezes, rhonchi or rales. GASTROINTESTINAL: Abdomen soft, non-tender, nondistended. No masses or hernias. No hepatosplenomegaly. Bowel sounds present. MUSCULOSKELETAL: No cyanosis or edema. No nail changes. BACK: Left CVA tenderness. NEURO: Cranial nerves II through XII grossly intact. Good muscle tone. Normal gait and coordination. PSYCH: Normal mood and affect. Good eye contact. Good insight and judgment. Normal speech. (Marti Myers MD, R3) A/P Assessment and Plan Patient is a 46 year old female with a PMH significant for endometriosis s/p partial hysterectomy and invasion of left ureter, breast cancer s/p radiation, chemotherapy, and lumpectomy, and epilepsy who presented with fever and AMS and was admitted for severe sepsis secondary to left pyelonephritis with abscess. Discharge Planning In several days pending resolution of sepsis. sdw Dr. Mills (Marti Myers MD, R3) Attending Attestation Patient seen and examined with Dr. Myers. Case reviewed and discussed with the resident team. Agree with plan of care as discussed with me and documented in the resident note. (David Mills MD) Problem List: (1) Severe sepsis ICD Codes: A41.9 - Sepsis, unspecified organism; R65.20 - Severe sepsis without septic shock Status: Acute Plan: Remains febrile to 100.4 this AM Improved mental status since admission CXR with pulmonary vascular congestion vs pneumonia. Abd/Pelvis CT significant for L lower pole with perinephric and periureteral inflammatory changes suggesting obstruction and probable infection of lower pole moiety. Decreased attenuation of lower pole of L kidney measuring 3.6x2.6cm suggestive of possible abscess. Internal ureteral stent within upper pole on L which is nondilated. Fibrotic scarring and/or atelectasis within posterior lung bases -ABG with pH 7.43, pCO2 30, base excess -3.8, will repeat ABG this AM as patient is tachypneic and may be compensating for metabolic acidosis. If ABG okay, will obtain pulmonary CTA to rule out PE. -Trend Lactic acid -3.3 -> 2.3->1.5 -Continue sepsis protocol -IVF -s/p 4 L NS, now on maintenance with NS @ 130ml/hr. Will give additional 1L NS bolus this AM. -MAP currently stable in the 90's -Monitor blood cultures, urine cultures -Empiric antibiotics -Continue Vancomycin and Zosyn -ID consulted -Urology consulted (2) Diarrhea ICD Codes: R19.7 - Diarrhea, unspecified Status: Acute Plan: New onset diarrhea, will check for c. diff. (3) Ureteral obstruction, left ICD Codes: N13.5 - Crossing vessel and stricture of ureter without hydronephrosis Status: Acute Plan: s/p cystoscopy, left stent removal, left retrograde pyelogram, left ureteroscopy with fulguration of residual mass consistent with endometrioma and placement of alf left ureteral stent by Dr. Aguilar 05/05 -Per EMR, plans for L uretal stent to be in place for minimum of 6 weeks (4) Seizure disorder ICD Codes: G40.909 - Seizure disorder Status: Chronic Plan: History of seizure disorder on home Tegretol -Continue home Tegretol -Obtain Tegretol level (5) DVT PPX Status: Acute Plan: Bilateral SCD's Hold chemical anticoagulation in anticipation of urologic procedure today (6) Fluids, Electrolytes, and Nutrition Plan: Fluids: 1L NS bolus, continue maintenance NS @ 130ml/hr Electrolytes: monitor and replete as needed Nutrition: NPO in anticipation or urologic procedure (Marti Myers MD, R3) Problem Qualifiers (1) Diarrhea: Qualified Codes: R19.7 - Diarrhea, unspecified Marti Myers MD, R3 May 07, 2017 10:23 David Mills MD May 07, 2017 16:37
--- NOTE | 2017-05-07 10:57 | PD.CONS ---
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 Patient underwent ureteroscopic evaluation with fulguration of endometrial tumor mass involving the distal left ureter and placement of a hand buffing wheel former stent with the proximal limb within the upper pole collecting system 2 days ago. On postop day 1 the patient started having problems with lightheadedness and fever and subsequently presented to the emergency room and was noted to be febrile with an elevated white cell count. A CT scan study was performed which demonstrated a dilated lower pole collecting system with perinephric inflammatory changes and possibly a small left lower pole renal abscess. Patient was started on intravenous antibiotics and a urology consult placed for further recommendations. At the time of consultation the patient was resting comfortably in bed and was not in any acute distress. Review of Systems Constitutional: COMPLAINS OF: Fever, Chills Respiratory: DENIES: Sputum production Cardiovascular: DENIES: Chest pain Gastrointestinal: DENIES: Abdominal pain Genitourinary: DENIES: Hematuria Musculoskeletal: DENIES: Back pain Except as stated in HPI: all other systems reviewed are Neg Past Family Social History Past Medical History History right breast cancer History endometriosis History seizure disorder Past Surgical History History right breast lumpectomy History of hysterectomy History of having ablation of obstructing endometrial tumor mass involving the distal limb of a duplicated left collecting system Reported Medications Refer to EMR Allergies: Coded Allergies: meperidine (Verified Allergy, Severe, Respiratory Failure, 05/06/17) azithromycin (Verified Allergy, Intermediate, Hives, 05/06/17) Active Ordered Medications Refer to EMR Family History Mother with history endometriosis And with history breast cancer Social History Denies a history tobacco, alcohol or intravenous drug abuse Physical Exam Vital Signs Date Time Temp Pulse Resp B/P (MAP) Pulse Ox O2 Delivery O2 Flow Rate FiO2 05/07/17 10:49 96 Nasal Cannula 2.00 05/07/17 09:23 Room Air 21 05/07/17 09:05 97 05/07/17 08:00 100.4 109 18 129/78 (95) 96 05/07/17 04:20 99.6 110 16 105/63 (77) 94 05/06/17 23:45 Room Air 05/06/17 22:45 99.1 122 18 129/72 (91) 97 05/06/17 22:43 05/06/17 22:30 99 21 05/06/17 22:26 101.4 05/06/17 20:13 99.5 115 22 95/54 (68) 96 Room Air 05/06/17 18:37 102.0 124 20 115/72 (86) 96 Room Air 05/06/17 18:37 97 Room Air 05/06/17 17:54 (81) 05/06/17 17:50 103.0 144 28 113/65 (81) 94 Physical Exam GENERAL: This is a well-nourished, well-developed patient, in no apparent distress. SKIN: No rashes, ecchymoses or lesions. Cool and dry. HEAD: Atraumatic. Normocephalic. No temporal or scalp tenderness. EYES: Pupils equal round and reactive. Extraocular motions intact. No scleral icterus. No injection or drainage. ENT: Nose without bleeding, purulent drainage or septal hematoma. Throat without erythema, tonsillar hypertrophy or exudate. Uvula midline. Airway patent. NECK: Trachea midline. No JVD or lymphadenopathy. Supple, nontender, no meningeal signs. CARDIOVASCULAR: Regular rate and rhythm without murmurs, gallops, or rubs. RESPIRATORY: Clear to auscultation. Breath sounds equal bilaterally. No wheezes , rales, or rhonchi. GASTROINTESTINAL: Abdomen soft, non-tender, nondistended. No hepato-splenomegaly , or palpable masses. No guarding. GENITOURINARY: No CVA tenderness MUSCULOSKELETAL: Extremities without clubbing, cyanosis, or edema. No joint tenderness, effusion, or edema noted. No calf tenderness. Negative Homans sign bilaterally. NEUROLOGICAL: Awake and alert. Cranial nerves II through XII intact. Motor and sensory grossly within normal limits. Five out of 5 muscle strength in all muscle groups. Normal speech. Laboratory Tests Test 05/06/17 18:20 05/06/17 19:35 05/06/17 21:50 05/06/17 22:20 White Blood Count 23.5 Red Blood Count 4.30 Hemoglobin 12.9 Hematocrit 38.2 Mean Corpuscular Volume 88.9 Mean Corpuscular Hemoglobin 30.1 Mean Corpuscular Hemoglobin Concent 33.8 Red Cell Distribution Width 13.1 Platelet Count 239 Mean Platelet Volume 7.1 Neutrophils (%) (Auto) 87.3 Lymphocytes (%) (Auto) 3.7 Monocytes (%) (Auto) 8.9 Eosinophils (%) (Auto) 0.0 Basophils (%) (Auto) 0.1 Neutrophils # (Auto) 20.5 Lymphocytes # (Auto) 0.9 Monocytes # (Auto) 2.1 Eosinophils # (Auto) 0.0 Basophils # (Auto) 0.0 CBC Comment DIFF FINAL Differential Comment Prothrombin Time 11.4 Prothromb Time International Ratio 1.0 Activated Partial Thromboplast Time 27.4 Blood Urea Nitrogen 14 Creatinine 1.35 Random Glucose 171 Total Protein 7.8 Albumin 3.1 Calcium Level 8.5 Alkaline Phosphatase 112 Aspartate Amino Transf (AST/SGOT) 34 Alanine Aminotransferase (ALT/SGPT) 34 Total Bilirubin 0.4 Sodium Level 137 Potassium Level 3.2 Chloride Level 100 Carbon Dioxide Level 26.2 Anion Gap 11 Estimat Glomerular Filtration Rate 42 Lactic Acid Level 3.3 2.3 C-Reactive Protein 19.70 Urine Color YELLOW Urine Turbidity CLOUDY Urine pH 6.0 Urine Specific Perry 1.020 Urine Protein 100 Urine Glucose (UA) TRACE Urine Ketones NEG Urine Occult Blood MOD Urine Nitrite NEG Urine Bilirubin NEG Urine Urobilinogen LESS THAN 2.0 Urine Leukocyte Esterase LARGE Urine RBC 104 Urine WBC Urine Squamous Epithelial Cells 3 Urine Amorphous Sediment RARE Urine Bacteria MANY Urine Hyaline Casts 7 Urine Mucus MANY Microscopic Urinalysis Comment CATH-CULTURE IND Blood Gas Puncture Site LT RADIAL Blood Gas Patient Temperature 98.6 Blood Gas HCO3 20 Blood Gas Base Excess -3.8 Blood Gas Oxygen Saturation 92 Arterial Blood pH 7.43 Arterial Blood Partial Pressure CO2 30 Arterial Blood Partial Pressure O2 72 Arterial Blood Oxygen Content 13.4 Arterial Blood Carboxyhemoglobin 1.6 Arterial Blood Methemoglobin 0.8 Blood Gas Hemoglobin 10.3 Oxygen Delivery Device ROOM AIR Blood Gas Inspired Oxygen 21 Test 05/07/17 01:41 05/07/17 10:13 White Blood Count 19.3 Red Blood Count 3.40 Hemoglobin 9.8 Hematocrit 30.6 Mean Corpuscular Volume 89.9 Mean Corpuscular Hemoglobin 28.9 Mean Corpuscular Hemoglobin Concent 32.2 Red Cell Distribution Width 12.8 Platelet Count 165 Mean Platelet Volume 6.5 CBC Comment AUTO DIFF Differential Total Cells Counted 100 Neutrophils % (Manual) 81 Band Neutrophils % 15 Lymphocytes % 2 Monocytes % 2 Neutrophils # (Manual) 18.5 Differential Comment FINAL DIFF MANUAL Platelet Estimate NORMAL Platelet Morphology Comment NORMAL Blood Urea Nitrogen 14 Creatinine 1.01 Random Glucose 140 Total Protein 6.1 Albumin 2.3 Calcium Level 6.8 Alkaline Phosphatase 77 Aspartate Amino Transf (AST/SGOT) 33 Alanine Aminotransferase (ALT/SGPT) 34 Total Bilirubin 0.3 Sodium Level 142 Potassium Level 3.1 Chloride Level 110 Carbon Dioxide Level 21.9 Anion Gap 10 Estimat Glomerular Filtration Rate 59 Lactic Acid Level 1.5 Protein Corrected Calcium 7.3 Blood Gas Puncture Site LT RADIAL Blood Gas Patient Temperature 98.6 Blood Gas HCO3 21 Blood Gas Base Excess -2.0 Blood Gas Oxygen Saturation 90 Arterial Blood pH 7.46 Arterial Blood Partial Pressure CO2 30 Arterial Blood Partial Pressure O2 65 Arterial Blood Oxygen Content 12.4 Arterial Blood Carboxyhemoglobin 1.5 Arterial Blood Methemoglobin 1.1 Blood Gas Hemoglobin 9.7 Blood Gas Inspired Oxygen 21 Date/Time Source Procedure Growth Status 05/06/17 18:25 Blood Peripheral Aerobic Blood Culture Pending Received 05/06/17 18:25 Blood Peripheral Anaerobic Blood Culture Pending Received 05/06/17 18:28 Throat Group A Streptococcus Screen Pending Received 05/06/17 19:35 Urine Catheterized Urine Urine Culture Pending Received Result Diagram: 05/07/17 0141 05/07/17 0141 Imaging Last Impressions Chest X-Ray 05/06/171807 Signed Impressions: Service Date/Time: Saturday, May 06, 2017 18:31 - CONCLUSION: 1. Perihilar infiltrates consistent with pulmonary vascular congestion versus pneumonia. Clinical correlation is recommended. 2. Mild cardiomegaly. 3. Degenerative changes and scoliosis of the thoracolumbar spine. Rivera Ramirez MD Abdomen/Pelvis CT 05/06/171807 Signed Impressions: Service Date/Time: Saturday, May 06, 2017 19:11 - CONCLUSION: 1. Dilated thick-walled lower pole moiety and lower pole ureter on the left with perinephric and periureteral inflammatory changes suggesting obstruction and probable infection of the lower pole moiety. There is a focal area of attenuation within the lower pole of the left kidney measuring 3.6 x 2.6 cm suggestive of possible abscess. 2. Internal ureteral stent within the upper pole moiety on the left which is nondilated. 3. Fibrotic scarring and/or atelectasis within the posterior lung bases. Rivera Ramirez MD Assessment and Plan Assessment and Plan Urologic impression: #1 urinary tract infection related to obstructed lower pole moiety of a duplicated left collecting system. #2 possible early abscess formation lower pole left kidney #3 status post recent left ureteroscopy with ablation of endometrial tumor mass involving the distal limb of the duplicated left collecting system with a hand buffing wheel former stent placed within the upper pole moiety. Recommendations: #1 keep patient nothing by mouth #2 interventional radiology consult for placement of left nephrostomy tube within the lower pole moiety of the duplicated system. #3 May resume regular diet after nephrostomy tube placed by interventional radiology #4 agree with present antibiotic therapy French Aguilar MD May 07, 2017 10:57
[2017-05-07] MEDS ORDERED: VANCOMYCIN INJ 1,300 MG in SODIUM CHLORID 0.9% 500 ML INJ 500 ML IV SCH (12:00)
[2017-05-07] MEDS ORDERED: MIDAZOLAM HCL 5 MG/5 ML VIAL ONE (14:27)
[2017-05-07 15:35] LABS: C. DIFF EPI 027 PRESUMPTIVE NEGATIVE (NEGATIVE)
--- NOTE | 2017-05-07 15:41 | PD.RAD ---
Post Procedure Progress Note Pre Procedure Diagnosis: (1) Renal abscess (2) Ureteral obstruction, left Post Procedure Diagnosis: (1) Renal abscess (2) Ureteral obstruction, left Procedure Date: May 07, 2017 Supervising Radiologist: Cesar Tam Estimated blood loss: 5CC Anesthesia: Local Plan of Activity Patient to Unit: ROPU Patient Condition: Fair Additional Comments: Pt has a internal stent in place in the upper pole collecting system. Duplicated system with hydronephrotic changes in the lower pole. Left lower pole nephrostomy place. Catheter verified in position with nephrostogram. Blood in [place] and nephrostomy bag. Floor advised to observe output to ensure this is clearing by casing worker on report. See PACS Report for procedural detail/treatment Cesar Tam MD May 07, 2017 15:41
[2017-05-07] MEDS ORDERED: IODIXANOL 320 MG/ML 50 ML VIAL (for RAD SPEC) IV ONE (16:13)
[2017-05-07] MEDS ORDERED: IOHEXOL 350 MG/ML 50 ML BTL (for RAD DIAG) OTHER ONE (16:13)
--- NOTE | 2017-05-07 18:39 | MB ---
cc: IRASEMA MCRAE MD, FRANKLYN F. MD DATE OF CONSULTATION: 05/07/[address] Mcrae REASON FOR CONSULTATION: Septic patient with perinephric abscess, recent urological surgery. HISTORY OF PRESENT ILLNESS This is a 46-year-old white female who is status post resection of endometrial tumor mass involving the left distal ureter and placement of a long-term ureteral stent on 05/05/17. The patient developed fever, shaking chills, nausea, dizziness, and lightheadedness. The patient also developed vomiting and also diarrhea. She was evaluated in the emergency department and she had a temperature of 103. She also had heart rate of 115 and white count of 23.5 and lactic acid level of 3.3. CT scan of the abdomen and pelvis was performed and showed dilated thick wall lower pole of the left kidney with perinephric and periureteral inflammatory changes. Also focal area of decreased attenuation within the lower pole of the left kidney measuring 3.6 x 2.6 cm suggestive of possible abscess. The patient was admitted to the hospital and started on IV antibiotics. Her temperature subsided somewhat, but increased again to 100.9 degrees today. Blood culture and urine cultures were taken and both have gram-negative jp. The patient is evaluated by urology and nephrostomy tube placement was ordered. She went to radiology for placement of the nephrostomy tube today and just returned from that procedure a few minutes ago. She is currently very somnolent from the anesthesia. Otherwise she wakes up without difficulty and was able to communicate with you for an interview. The patient denies pain currently. She has had diarrhea today and some yesterday. Stool C-difficile toxin is negative. She denies other symptoms besides that mentioned above. PAST MEDICAL HISTORY 1. Endometriosis. 2. Type 2 diabetes mellitus. 3. Pelvic mass status post fulguration of endometrial mass. 3. Hysterectomy. 4. Breast biopsy. 5. Lumpectomy. 6. Left ureteral stent. 7. Seizure disorder. ALLERGIES AZITHROMYCIN, MEPERIDINE. MEDICATIONS: 1. Vancomycin. 2. Piperacillin/tazobactam. 3. Potassium. 4. Protonix. 5. Tylenol. SOCIAL HISTORY: The patient is . No tobacco. No alcohol. No illicit drug use. FAMILY HISTORY: Noncontributory. REVIEW OF SYSTEMS Pertinent mentioned above in history of present illness. Otherwise negative. PHYSICAL EXAMINATION This is a well-developed female who is in no acute distress. She is awake but slightly drowsy from anesthesia. Vital signs: Include temperature 98.1, BP 148/86, respirations 18, heart rate 100. HEENT: Head is atraumatic. Extraocular movements grossly intact, pupils reactive to light. No icterus. Oropharynx no visible lesions. Neck: Supple. No adenopathy. Lungs: Clear breath sounds. Heart: Regular S1-S2 without murmurs, rubs or gallops. Abdomen: Soft, decreased bowel sounds, nontender. Left nephrostomy has saurabh colored drainage. Rectal: Not performed. Extremities: No clubbing, cyanosis or edema. Skin: No rash. Neuro: No gross focal findings. Psychiatric: The patient is calm and cooperative. LABORATORY DATA WBC 19.3, platelets 165, hemoglobin 9.8, 81% neutrophils, 15% bands, creatinine 1.01, BUN 14, sodium 142. Liver function tests normal. Estimated GFR 59. Chest x-ray shows perihilar infiltrates consistent with pulmonary vascular congestion versus pneumonia. IMPRESSION 1. Left perinephric abscess. 2. Sepsis due to gram-negative bacteria. 3. UTI due to gram-negative bacteria. 4. Leukocytosis secondary to infection. 5. Status post left ureteral stent. The patient noted to have partial duplicated left collecting system. RECOMMENDATIONS 1. Continue piperacillin / tazobactam. 2. Monitor the blood culture. 3. Monitor urine culture. 4. Monitor white blood cell count. 5. Monitor clinical status. 6. Discontinue vancomycin. The patient's white blood cell count is decreased and the temperature is lower than yesterday indicating that she may be responding to the current antibiotics in the form of piperacillin/tazobactam. Thank you this consultation. I will monitor the patient's progress with you and will make further recommendations upon followup. Oscar Soares MD FD/CHUCKY /5:04 PM /6:06 PM
--- NOTE | 2017-05-07 20:53 | EKG ---
Date Performed: 05/06/2017 Time Performed: 18:57:57 PTAGE: 46 years EKG: SINUS TACHYCARDIA ABNORMAL RHYTHM ECG PREVIOUS TRACING : 03/19/2013 19.10 Compared to prior tracing no significant change DOCTOR: Roc Mcintyre Interpretating Date/Time 05/07/2017 20:48:02
[2017-05-07] MEDS: carBAMazepine 200 MG TAB PO SCH (21:45)
[2017-05-08] VITALS (9 sets, daily range): BP systolic 98–160; BP diastolic 57–94; PULSE 97–106; RESP 16–20; TEMP 98.8–100.6; O2SAT 91–96
[2017-05-08] MEDS: PIPERACIL-TAZO 3.375 GM PREMIX 50 ML IV SCH ×5 (02:08→23:55)
[2017-05-08] MEDS: NS + KCL 20 MEQ INJ 1,000 ML IV SCH ×3 (06:01→23:49)
[2017-05-08] MEDS: PANTOPRAZOLE SODIUM 40 MG VIAL IV PUSH SCH (08:44)
[2017-05-08] MEDS: carBAMazepine 200 MG TAB PO SCH ×2 (08:44→21:02)
[2017-05-08] MEDS: ACETAMINOPHEN 500 MG CPLT PO PRN ×2 (08:44→15:54)
[2017-05-08 08:45] LABS: AUTOMATED NEUTROPHIL # 11.2 TH/MM3 (1.8-7.7); BASOPHIL % 0.1 % (0.0-2.0); EOSINOPHIL % 0.1 % (0.0-4.0); HEMATOCRIT 25.7 % (35.0-46.0); HEMO FLAGS DIFF FINAL; LYMPH % 8.2 % (9.0-44.0); LYMPHOCYTE # 1.1 TH/MM3 (1.0-4.8); MEAN CELL VOLUME 91.9 FL (80.0-100.0); MEAN CORPUSCULAR HEMOGLOBIN 30.1 PG (27.0-34.0); MEAN CORPUSCULAR HGB CONC 32.7 % (32.0-36.0); MONO % 8.8 % (0.0-8.0); NEUT % 82.8 % (16.0-70.0); PLATELET COUNT 122 TH/MM3 (150-450); RED CELL DISTRIBUTION WIDTH 13.7 % (11.6-17.2); WHITE BLOOD COUNT 13.5 TH/MM3 (4.0-11.0)
[2017-05-08] MEDS: SODIUM CHLORIDE 0.9% FLUSH 10 ML FLUSH IV FLUSH SCH ×2 (08:45→21:00)
[2017-05-08 09:12] LABS: BICARBONATE 19.4 MEQ/L (21.0-32.0); POTASSIUM 3.2 MEQ/L (3.5-5.1)
[2017-05-08 09:20] LABS: CALCIUM-PROTEIN CORRECTED 7.8 MG/DL (8.5-10.1); TOTAL BILIRUBIN ADULT 0.3 MG/DL (0.2-1.0)
[2017-05-08] MEDS ORDERED: POTASSIUM CHLORIDE 20 MEQ CONTROLLED RELEASE TAB PO ONE (10:15)
--- NOTE | 2017-05-08 11:08 | HHI.FPPN ---
Subjective Remarks Patient febrile up to 103.0 and tachycardic up to 114 overnight. Blood pressures remain stable. She continues to have tachypnea and dyspnea with exertion and her O2 saturations have been ranging 91-93% on RA. She denies any cough, chest pain, abdominal pain, or palpitations. She states that she is feeling slightly better than yesterday, however remains fatigued and continues to have high fevers. She is tolerating PO. (Marti Myers MD, R3) Objective Vitals Vital Signs Date Time Temp Pulse Resp B/P (MAP) Pulse Ox O2 Delivery O2 Flow Rate FiO2 05/08/17 08:00 100.2 104 18 160/77 (104) 91 05/08/17 04:00 100.6 100 20 145/78 (100) 93 05/08/17 00:00 99.9 106 16 98/57 (71) 92 05/07/17 20:59 Room Air 05/07/17 20:05 112 05/07/17 20:00 103.0 114 22 163/80 (107) 96 05/07/17 17:41 96 Nasal Cannula 2.00 05/07/17 16:15 100 18 148/86 (106) 96 05/07/17 16:00 105 20 146/85 (105) 98 05/07/17 16:00 98.1 111 18 143/76 (98) 97 05/07/17 15:45 97.6 97 20 131/78 (95) 92 05/07/17 12:00 100.9 111 18 128/73 (91) 96 05/07/17 10:49 96 Nasal Cannula 2.00 I/O 05/07/17 05/07/17 05/07/17 05/08/17 05/08/17 05/08/17 07:00 15:00 23:00 07:00 15:00 23:00 Intake Total 2019 ml 680 ml 1340 ml 500 ml Output Total 750 ml 700 ml 600 ml 1150 ml Balance 1269 ml -700 ml 80 ml 190 ml 500 ml Intake Oral 0 ml 0 ml 240 ml IV Total 2019 ml 680 ml 1100 ml 500 ml Output Urine Total 750 ml 700 ml 600 ml 1150 ml # Bowel Movements 4 3 3 1 (Marti Myers MD, R3) Result Diagram: 05/08/17 0700 05/08/17 0700 Imaging Last Impressions Chest X-Ray 05/06/171807 Signed Impressions: Service Date/Time: Saturday, May 06, 2017 18:31 - CONCLUSION: 1. Perihilar infiltrates consistent with pulmonary vascular congestion versus pneumonia. Clinical correlation is recommended. 2. Mild cardiomegaly. 3. Degenerative changes and scoliosis of the thoracolumbar spine. Rivera Ramirez MD Abdomen/Pelvis CT 05/06/171807 Signed Impressions: Service Date/Time: Saturday, May 06, 2017 19:11 - CONCLUSION: 1. Dilated thick-walled lower pole moiety and lower pole ureter on the left with perinephric and periureteral inflammatory changes suggesting obstruction and probable infection of the lower pole moiety. There is a focal area of attenuation within the lower pole of the left kidney measuring 3.6 x 2.6 cm suggestive of possible abscess. 2. Internal ureteral stent within the upper pole moiety on the left which is nondilated. 3. Fibrotic scarring and/or atelectasis within the posterior lung bases. Rivera Ramirez MD Objective Remarks GENERAL: Well-nourished, well-developed female who appears fatigued. SKIN: Warm and dry. No rashes or lesions present. EYES: No scleral icterus. No conjunctival injection or drainage. Pupils equal, round, reactive to light and accommodation. Extraocular movements intact. THROAT: Moist mucous membranes. NECK: Supple, trachea midline. CARDIOVASCULAR: Tachycardic with regular rhythm and without murmurs, gallops, or rubs. Strong radial and pedal pulses. CHEST: Symmetric chest expansion with respiration. RESPIRATORY: Regular respiratory rate, however tachypneic with any exertion. Breath sounds are clear to auscultation bilaterally. No accessory muscle use. No wheezes, rhonchi or rales. GASTROINTESTINAL: Abdomen soft, non-tender, nondistended. No masses or hernias. No hepatosplenomegaly. Bowel sounds present. MUSCULOSKELETAL: No cyanosis or edema. No nail changes. BACK: Left CVA tenderness. Left nephrostomy tube draining blood, nephrostomy site clean and dry without erythema or warmth. NEURO: Cranial nerves II through XII grossly intact. Good muscle tone. Normal gait and coordination. PSYCH: Normal mood and affect. Good eye contact. Good insight and judgment. Normal speech. (Marti Myers MD, R3) A/P Assessment and Plan Patient is a 46 year old female with a PMH significant for endometriosis s/p partial hysterectomy and invasion of left ureter, breast cancer s/p radiation, chemotherapy, and lumpectomy, and epilepsy who presented with fever and AMS and was admitted for severe sepsis secondary to left pyelonephritis with abscess. Now s/p left nephrostomy tube placement on 05/07 by IR. Discharge Planning In several days pending resolution of sepsis. sdw Dr. Mills (Marti Myers MD, R3) Attending Attestation Patient seen and examined with Dr Mendez Myers. Case reviewed and discussed with the resident team. Agree with plan of care as discussed with me and documented in the resident note.Patient reports diarrhea resolved. (David Mills MD) Problem List: (1) Severe sepsis ICD Codes: A41.9 - Sepsis, unspecified organism; R65.20 - Severe sepsis without septic shock Status: Acute Plan: Secondary to urinary tract infection related to obstructed lower pole moiety of a duplicated left collecting system Remains febrile up to 103.0 overnight with tachycardia Improved mental status since admission, however patient does note delirium with high fevers CXR with pulmonary vascular congestion vs pneumonia. Abd/Pelvis CT significant for L lower pole with perinephric and periureteral inflammatory changes suggesting obstruction and probable infection of lower pole moiety. Decreased attenuation of lower pole of L kidney measuring 3.6x2.6cm suggestive of possible abscess. Internal ureteral stent within upper pole on L which is nondilated. Fibrotic scarring and/or atelectasis within posterior lung bases Left nephrostomy tube placed by IR on 05/07 Lactic acid has trended down to wnl at 1.5 Leukocytosis trending down from 23.5 on admission to 13.5 today Hgb is trending down from 12.9 on admission to 8.4 today, will repeat H/H this afternoon and transfuse as indicated Platelets trending down from 239 on admission to 122 today, continue to monitor -Given shortness of breath in setting of decreased O2 saturations and persistent tachycardia, will obtain Pulmonary CTA to r/o PE -IVF -s/p 4 L NS, now on maintenance with NS + KCl 20meq @ 130ml/hr. -MAP currently stable in the 100's -05/06 urine culture growing gram negative jp -05/06 blood culture x 2 growing gram negative jp -DC Vancomycin, continue Zosyn -ID consulted- appreciate recommendations -Urology consulted- appreciate recommendations (2) Diarrhea ICD Codes: R19.7 - Diarrhea, unspecified Status: Resolved Plan: No further episodes of diarrhea, c. diff negative (3) Ureteral obstruction, left ICD Codes: N13.5 - Crossing vessel and stricture of ureter without hydronephrosis Status: Acute Plan: s/p cystoscopy, left stent removal, left retrograde pyelogram, left ureteroscopy with fulguration of residual mass consistent with endometrioma and placement of terminal gauger supervisor left ureteral stent by Dr. Aguilar 05/05 -Per EMR, plans for L uretal stent to be in place for minimum of 6 weeks (4) Seizure disorder ICD Codes: G40.909 - Seizure disorder Status: Chronic Plan: History of seizure disorder on home Tegretol. Tegretol level slightly elevated on admission -Will hold afternoon dose of Tegretol and continue Tegretol 400mg PO BID - Recheck Tegretol level in ~72 hours (5) DVT PPX Status: Acute Plan: Bilateral SCD's Hold chemical anticoagulation for active bleeding at nephrostomy (6) Fluids, Electrolytes, and Nutrition Plan: Fluids: maintenance NS +KCl 20meq @ 130ml/hr Electrolytes: hypokalemia of 3.2, replace with 40meq KCl PO today, continue to monitor Nutrition: Regular diet (Marti Myers MD, R3) Problem Qualifiers (1) Diarrhea: Qualified Codes: R19.7 - Diarrhea, unspecified Marti Myers MD, R3 May 08, 2017 10:39 David Mills MD May 09, 2017 12:35
[2017-05-08] MEDS ORDERED: IOHEXOL 350 MG/ML 10 ML VIAL (for RAD DIAG) IVCONTRAST ONE (11:24)
--- NOTE | 2017-05-08 11:50 | RADRPT ---
EXAM DATE/TIME: 05/08/2017 11:17 [facility] COMPARISON: No previous studies available for comparison. INDICATIONS : Shortness of breath. IV CONTRAST: 70 cc Omnipaque 350 (iohexol) IV RADIATION DOSE: 23.05 CTDIvol (mGy) MEDICAL HISTORY : Carcinoma, breast. SURGICAL HISTORY : Hysterectomy. ENCOUNTER: Initial ACUITY: 1 day PAIN SCALE: 0/10 LOCATION: chest TECHNIQUE: Volumetric scanning of the chest was performed using a pulmonary embolism protocol MIP images were re constructed. Using automated exposure control and adjustment of the mA and/or kV according to patien t size, radiation dose was kept as low as reasonably achievable to obtain optimal diagnostic quality images. DICOM format image data is available electronically for review and comparison. Follow-up recommendations for detected pulmonary nodules are based at a minimum on nodule size and pa tient risk factors according to Fleischner Society Guidelines. FINDINGS: PULMONARY ARTERIES: No filling defects are seen in the pulmonary arteries through the segmental level. LUNGS: There is no consolidation or pneumothorax . No concerning pulmonary nodule is visualized. Minimal bi basilar densities. PLEURAE: There are small bilateral pleural effusions. MEDIASTINUM: There is good visualization of the great vessels of the middle mediastinum. No evidence of mediastin al or hilar adenopathy/mass. MUSCULOSKELETAL: Within normal limits for patient age. MISCELLANEOUS: The visualized upper abdominal organs demonstrate no acute abnormality. Spiculated density right uppe r inner breast. CONCLUSION: 1. No evidence for pulmonary embolism. 2. Minimal bibasilar densities likely atelectasis. 3. Small pleural effusions. 4. Spiculated density right inner upper breast likely surgical scar. Clinical correlation as to [facility] patient has had previous right breast surgery. If not then patient will need a diagnostic workup a s an outpatient. Maxx Acevedo MD on May 08, 2017 at 11:41 Board Certified Radiologist. This report was verified electronically.
[2017-05-08] MEDS: LACTOBACILLUS ACIDOPHILUS TAB PO SCH ×2 (12:31→18:28)
--- NOTE | 2017-05-08 12:31 | RADRPT ---
EXAM DATE/TIME: 05/07/2017 14:22 [facility] COMPARISON: PERCUTANEOUS ANTEGRADE PYELO,LT, May 07, 2017, 0:00. INDICATIONS : Pyelonephritis,renal abscess. MEDICAL HISTORY : 1. Hx right breast cancer 2. IBS 3. Endometriosis 4. seizure disorder 5. ureteral obstruction SURGICAL HISTORY : 1. Right lumpectomy 2. Partial hysterectomy 3. lt ureteral stent 4. left nephrostomy ENCOUNTER: Initial ACUITY: 2 days PAIN SCORE: 2/10 LOCATION: Left flank FLUORO TIME: 19.6 minutes IMAGE SERIES: 2 SEDATION TIME: 60 minutes CONTRAST: 90 cc Omnipaque (iohexol) 350 MEDICATION(S): 1.) 5 mg midazolam (Versed) IV 2.) 200 mcg fentanyl (Sublimaze) IV Prophylactic antibiotics were administered with appropriate pre-procedure timing. DEVICE(S): 1.) 8 Swedish nephrostomy catheter PROCEDURE : 1. Ultrasound-guided puncture of the kidney. 2. Antegrade percutaneous pyelogram. 3. Percutaneous nephrostomy placement. 4. Conscious sedation with continuous EKG and oximetry monitoring. The risks, benefits and alternatives to the procedure were explained and verbal and written consent w as obtained. The site was prepped in sterile fashion. Full sterile technique was used, including ca p, mask, sterile gloves and gown and a large sterile sheet. Hand hygiene and 2% chlorhexidine and/or betadine/alcohol prep was utilized per protocol for cutaneous antisepsis. Sterile gel and sterile probe cover were utilized for ultrasound guidance. The skin and subcutaneous tissues were infiltrate d with local anesthetic solution. The patient was examined with ultrasound. There was very limited visualization of the left kidney due to the patient's size. The patient was given 50 cc of intravenous contrast. There was filling of the upper pole collecting system on the left with excretion. There was very limited filling of a mildly hydronephrotic lower pole system as well. A 22 gauge needle was advanced through the skin and into th e collecting system. The collecting system was opacified with approximately 10 cc of contrast. A post erior calyx was identified. The skin above was anesthetized with 10 cc of lidocaine. A 22 gauge needl e was advanced into the collecting system without difficulty. The 0.018 wire was advanced through the renal pelvis and down the patient's partially duplicated left ureter. This was exchanged for a 0.035 angle Glidewire. The Glidewire was advanced to the bladder. Serial dilatation was performed and an 8 Swedish nephrostomy tube was placed within the renal pelvis and sutured in place. Conscious sedation was performed with the prescribed dosages and duration as above in the presence of an independent trained radiology nurse to assist in the monitoring of the patient. EKG and oximetry remained stable throughout the procedure. The patient tolerated the procedure well and there were n o complications. The patient was sent to post anesthesia recovery in stable condition. CONCLUSION: Uncomplicated nephrostomy tube placement as above. Cesar Tam MD on May 08, 2017 at 12:27 Board Certified Radiologist. This report was verified electronically.
--- NOTE | 2017-05-08 13:02 | HHI.PR ---
Subjective Patient symptoms today Status post placement of left nephrostomy tube yesterday. Feels somewhat better today. Objective Vital Signs Vital Signs Date Time Temp Pulse Resp B/P (MAP) Pulse Ox O2 Delivery O2 Flow Rate FiO2 05/08/17 12:00 98.8 100 18 144/77 (99) 93 05/08/17 08:30 Room Air 05/08/17 08:30 99 05/08/17 08:00 100.2 104 18 160/77 (104) 91 05/08/17 04:00 100.6 100 20 145/78 (100) 93 05/08/17 00:00 99.9 106 16 98/57 (71) 92 05/07/17 20:59 Room Air 05/07/17 20:05 112 05/07/17 20:00 103.0 114 22 163/80 (107) 96 05/07/17 17:41 96 Nasal Cannula 2.00 05/07/17 16:15 100 18 148/86 (106) 96 05/07/17 16:00 105 20 146/85 (105) 98 05/07/17 16:00 98.1 111 18 143/76 (98) 97 05/07/17 15:45 97.6 97 20 131/78 (95) 92 Intake & Output 05/08/17 05/08/17 07:00 19:00 Intake Total 2020 ml 500 ml Output Total 1150 ml Balance 870 ml 500 ml Intake Oral 240 ml IV Total 1780 ml 500 ml Output Urine Total 1150 ml # Bowel Movements 1 Result Diagram: 05/08/17 0700 05/08/17 0700 Imaging Last [address] Angiography 05/08/17 0000 Signed Impressions: Service Date/Time: April 11:17 - CONCLUSION: 1. No evidence for pulmonary embolism. 2. Minimal bibasilar densities likely atelectasis. 3. Small pleural effusions. 4. Spiculated density right inner upper breast likely surgical scar. Clinical correlation as to whether patient has had previous right breast surgery. If not then patient will need a diagnostic workup as an outpatient. Maxx Acevedo MD Objective Remarks Nephrostomy tube with blood-tinged output. Several small old clots noted within the drainage tubing. Medications and IVs Current Medications Medications (Trade) Dose Ordered Sig/Kelin Route Start Time Stop Time Status Last Admin (NS Flush) 2 ml UNSCH PRN IV FLUSH 05/06/17 21:30 (NS Flush) 2 ml BID IV FLUSH 05/07/17 09:00 05/08/17 08:45 (Protonix Inj) 40 mg DAILY IV PUSH 05/07/17 09:00 05/08/17 08:44 (Tylenol) 500 mg Q4H PRN PO 05/06/17 22:30 05/08/17 08:44 (Morphine Inj) 2 mg Q3H PRN IV PUSH 05/06/17 22:30 Piperacillin Sod/ Tazobactam Sod 50 ml @ 100 mls/hr Q6H IV 05/07/17 01:00 05/08/17 12:31 Potassium Chloride/Sodium Chloride 1,000 ml @ 130 mls/hr Q7H42M IV 05/07/17 02:30 05/08/17 06:01 (TEGretol) 400 mg Q12HR PO 05/07/17 21:45 05/08/17 08:44 (Lactinex) 1 tab TID PO 05/08/17 13:00 05/08/17 12:31 Assessment and Plan Assessment and Plan Urologic impression: #1 urinary tract infection related to obstructed lower pole 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 Recommendations: #1 agree with present antibiotic therapy #2 may DC home with nephrostomy tube to gravity drainage when medically stable and cleared by infectious disease #3 will make arrangements for left nephrostogram in approximately 1 week to reassess drainage of the left kidney French Aguilar MD May 08, 2017 13:02
--- NOTE | 2017-05-08 14:03 | HHI.IDPN ---
Note Infectious Disease Note Patient feels tired. Having Diarrhea. Denies chills. Afebrile. Notes BROWN. Admitted with fever, shaking chills, nausea, dizziness, and lightheadedness. The patient also developed vomiting and also diarrhea. PAST MEDICAL HISTORY 1. Endometriosis. 2. Type 2 diabetes mellitus. 3. Pelvic mass status post fulguration of endometrial mass. ureteral stent. 3. Hysterectomy. 4. Breast biopsy. 5. Lumpectomy. 6. Left ureteral stent. 7. Seizure disorder. ALLERGIES AZITHROMYCIN, MEPERIDINE. ANTIBIOTICS: Piperacillin/tazobactam. SOCIAL HISTORY: The patient is . No tobacco. No alcohol. No illicit drug use. OBJECTIVE: Vital Signs Date Time Temp Pulse Resp B/P (MAP) Pulse Ox O2 Delivery O2 Flow Rate FiO2 05/08/17 12:00 98.8 100 18 144/77 (99) 93 05/08/17 08:30 Room Air 05/08/17 08:30 99 05/08/17 08:00 100.2 104 18 160/77 (104) 91 05/08/17 04:00 100.6 100 20 145/78 (100) 93 05/08/17 00:00 99.9 106 16 98/57 (71) 92 05/07/17 20:59 Room Air 05/07/17 20:05 112 05/07/17 20:00 103.0 114 22 163/80 (107) 96 05/07/17 17:41 96 Nasal Cannula 2.00 05/07/17 16:15 100 18 148/86 (106) 96 05/07/17 16:00 105 20 146/85 (105) 98 05/07/17 16:00 98.1 111 18 143/76 (98) 97 05/07/17 15:45 97.6 97 20 131/78 (95) 92 05/08/17 05/08/17 05/09/17 15:00 23:00 07:00 Intake Total 500 ml Balance 500 ml IV Total 500 ml Laboratory Tests Test 05/06/17 18:20 05/07/17 01:41 05/08/17 07:00 White Blood Count 23.5 TH/MM3 19.3 TH/MM3 13.5 TH/MM3 Red Blood Count 4.30 MIL/MM3 3.40 MIL/MM3 2.80 MIL/MM3 Hemoglobin 12.9 GM/DL 9.8 GM/DL 8.4 GM/DL Hematocrit 38.2 % 30.6 % 25.7 % Mean Corpuscular Volume 88.9 FL 89.9 FL 91.9 FL Mean Corpuscular Hemoglobin 30.1 PG 28.9 PG 30.1 PG Mean Corpuscular Hemoglobin Concent 33.8 % 32.2 % 32.7 % Red Cell Distribution Width 13.1 % 12.8 % 13.7 % Platelet Count 239 TH/MM3 165 TH/MM3 122 TH/MM3 Mean Platelet Volume 7.1 FL 6.5 FL 7.6 FL Neutrophils (%) (Auto) 87.3 % 82.8 % Lymphocytes (%) (Auto) 3.7 % 8.2 % Monocytes (%) (Auto) 8.9 % 8.8 % Eosinophils (%) (Auto) 0.0 % 0.1 % Basophils (%) (Auto) 0.1 % 0.1 % Neutrophils # (Auto) 20.5 TH/MM3 11.2 TH/MM3 Lymphocytes # (Auto) 0.9 TH/MM3 1.1 TH/MM3 Monocytes # (Auto) 2.1 TH/MM3 1.2 TH/MM3 Eosinophils # (Auto) 0.0 TH/MM3 0.0 TH/MM3 Basophils # (Auto) 0.0 TH/MM3 0.0 TH/MM3 CBC Comment DIFF FINAL AUTO DIFF DIFF FINAL Differential Comment FINAL DIFF MANUAL Differential Total Cells Counted 100 Neutrophils % (Manual) 81 % Band Neutrophils % 15 % Lymphocytes % 2 % Monocytes % 2 % Neutrophils # (Manual) 18.5 TH/MM3 Platelet Estimate NORMAL Platelet Morphology Comment NORMAL Laboratory Tests Test 05/06/17 18:20 05/06/17 21:50 05/07/17 01:41 05/08/17 07:00 Blood Urea Nitrogen 14 MG/DL 14 MG/DL 8 MG/DL Creatinine 1.35 MG/DL 1.01 MG/DL 0.93 MG/DL Random Glucose 171 MG/DL 140 MG/DL 153 MG/DL Total Protein 7.8 GM/DL 6.1 GM/DL 5.9 GM/DL Albumin 3.1 GM/DL 2.3 GM/DL 1.8 GM/DL Calcium Level 8.5 MG/DL 6.8 MG/DL 7.2 MG/DL Alkaline Phosphatase 112 U/L 77 U/L 71 U/L Aspartate Amino Transf (AST/SGOT) 34 U/L 33 U/L 24 U/L Alanine Aminotransferase (ALT/SGPT) 34 U/L 34 U/L 30 U/L Total Bilirubin 0.4 MG/DL 0.3 MG/DL 0.3 MG/DL Sodium Level 137 MEQ/L 142 MEQ/L 141 MEQ/L Potassium Level 3.2 MEQ/L 3.1 MEQ/L 3.2 MEQ/L Chloride Level 100 MEQ/L 110 MEQ/L 112 MEQ/L Carbon Dioxide Level 26.2 MEQ/L 21.9 MEQ/L 19.4 MEQ/L Anion Gap 11 MEQ/L 10 MEQ/L 10 MEQ/L Estimat Glomerular Filtration Rate 42 ML/MIN 59 ML/MIN 65 ML/MIN Lactic Acid Level 3.3 mmol/L 2.3 mmol/L 1.5 mmol/L C-Reactive Protein 19.70 MG/DL Protein Corrected Calcium 7.3 MG/DL 7.8 MG/DL Microbiology Date/Time Source Procedure Growth Status 05/06/17 18:25 Blood Peripheral Aerobic Blood Culture - Preliminary Gram Negative [place] Resulted 05/06/17 18:25 Blood Peripheral Anaerobic Blood Culture - Preliminary NO GROWTH IN 2 DAYS Resulted 05/06/17 18:15 Blood Peripheral Aerobic Blood Culture - Preliminary Gram Negative [place] Resulted 05/06/17 18:15 Blood Peripheral Anaerobic Blood Culture - Preliminary NO GROWTH IN 2 DAYS Resulted 05/06/17 18:28 Throat Group A Streptococcus Screen - Final NO GP A BETA STREP ISOLATED. Complete 05/06/17 18:28 Throat Group A Streptococcus Screen (OLESYA) - Final Complete 05/06/17 18:28 Nasal Aspirate Influenza Types A,B Antigen (OLESYA) - Final NEGATIVE FOR FLU A AND B ANTIGEN.... Complete 05/06/17 19:35 Urine Catheterized Urine Urine Culture - Final Pseudomonas Aeruginosa Complete PHYSICAL EXAMINATION SONY+NERAL: No acute distress. HEENT: No icterus. Oropharynx no visible lesions. Neck: Supple. No adenopathy. Lungs: Decreased breath sounds. Heart: Regular S1-S2 without murmurs, rubs or gallops. Abdomen: Soft, decreased bowel sounds, nontender. Left nephrostomy has bilous colored drainage. Extremities: No clubbing, cyanosis or edema. Skin: No rash. Neuro: No gross focal findings. Psychiatric: The patient is calm and cooperative. IMPRESSION 1. Left perinephric abscess. 2. Sepsis due to gram-negative bacteria. 3. UTI due to pseudomonas. 4. Leukocytosis secondary to infection. WBC improving. 5. Status post left ureteral stent. 6. Diarrhea. - c. dif negative. 7. SOB - ? CHF. RECOMMENDATIONS 1. Continue piperacillin / tazobactam. 2. Monitor the blood culture. 3. Monitor urine culture. 4. Monitor white blood cell count. 5. Monitor clinical status. 6. Consider Imodium for diarrhea. Oscar Soares MD May 08, 2017 14:03
[2017-05-08] MEDS ORDERED: LOPERAMIDE HCL 2 MG CAP PO PRN (15:00)
--- NOTE | 2017-05-08 15:24 | RADRPT ---
EXAM DATE/TIME: 05/08/2017 14:54 [facility] COMPARISON: CHEST SINGLE AP, May 06, 2017, 18:31. INDICATIONS : Dyspnea. MEDICAL HISTORY : Carcinoma, breast. SURGICAL HISTORY : Hysterectomy. ENCOUNTER: Subsequent ACUITY: 2 days PAIN SCORE: 0/10 LOCATION: Bilateral chest FINDINGS: A single view of the chest demonstrates hypoinflation with bibasilar atelectatic changes. No confluen t infiltrate or effusion. Heart size is normal. Osseous structures are intact with some degenerative spurring of the dorsal spine. CONCLUSION: 1. Hypoinflation with minimal bibasilar atelectatic changes. 2. No confluent infiltrate or effusion. Greg Meier MD on May 08, 2017 at 15:19 Board Certified Radiologist. This report was verified electronically.
[2017-05-08 17:21] LABS: HEMATOCRIT 26.9 % (35.0-46.0); REVIEW FLAG FINAL
[2017-05-08] MEDS: MORPHINE SULFATE 4 MG/ML INJ IV PUSH PRN ×2 (18:29→23:49)
[2017-05-08] MEDS ORDERED: RESP: ALBUTEROL 2.5 MG/IPRATROPIUM 0.5 MG NEB (PRN) NEB (18:30)
[2017-05-09] VITALS (11 sets, daily range): BP systolic 105–148; BP diastolic 48–96; PULSE 90–108; RESP 17–20; TEMP 98.6–99.9; O2SAT 95–98
[2017-05-09] MEDS: MORPHINE SULFATE 4 MG/ML INJ IV PUSH PRN (04:58)
[2017-05-09 06:09] LABS: AUTOMATED NEUTROPHIL # 9.9 TH/MM3 (1.8-7.7); BASOPHIL % 0.1 % (0.0-2.0); EOSINOPHIL # 0.1 TH/MM3 (0-0.4); EOSINOPHIL % 0.6 % (0.0-4.0); HEMATOCRIT 28.8 % (35.0-46.0); HEMO FLAGS DIFF FINAL; LYMPH % 12.2 % (9.0-44.0); LYMPHOCYTE # 1.5 TH/MM3 (1.0-4.8); MEAN CELL VOLUME 92.6 FL (80.0-100.0); MEAN CORPUSCULAR HEMOGLOBIN 29.8 PG (27.0-34.0); MEAN CORPUSCULAR HGB CONC 32.2 % (32.0-36.0); MONO % 7.3 % (0.0-8.0); NEUT % 79.8 % (16.0-70.0); PLATELET COUNT 151 TH/MM3 (150-450); RED BLOOD COUNT 3.11 MIL/MM3 (4.00-5.30); RED CELL DISTRIBUTION WIDTH 13.2 % (11.6-17.2); WHITE BLOOD COUNT 12.4 TH/MM3 (4.0-11.0)
[2017-05-09] MEDS: PIPERACIL-TAZO 3.375 GM PREMIX 50 ML IV SCH ×3 (06:09→18:06)
[2017-05-09 06:18] LABS: ANION GAP 9 MEQ/L (5-15); AST (GOT) 28 U/L (15-37); BICARBONATE 20.1 MEQ/L (21.0-32.0); BLOOD UREA NITROGEN 4 MG/DL (7-18); CHLORIDE 111 MEQ/L (98-107); GLOMERULAR FILTRATION RATE 85 ML/MIN (>89); POTASSIUM 3.7 MEQ/L (3.5-5.1); SODIUM (NA) 140 MEQ/L (136-145)
[2017-05-09 06:20] LABS: ALT (GPT) 35 U/L (10-53)
[2017-05-09 06:22] LABS: ALKALINE PHOSPHATASE 80 U/L (45-117); TOTAL BILIRUBIN ADULT 0.3 MG/DL (0.2-1.0)
[2017-05-09] MEDS: LACTOBACILLUS ACIDOPHILUS TAB PO SCH ×3 (09:22→18:05)
[2017-05-09] MEDS: PANTOPRAZOLE SODIUM 40 MG VIAL IV PUSH SCH (09:23)
[2017-05-09] MEDS: SODIUM CHLORIDE 0.9% FLUSH 10 ML FLUSH IV FLUSH SCH ×2 (09:23→20:05)
[2017-05-09] MEDS: NS + KCL 20 MEQ INJ 1,000 ML IV SCH ×3 (09:24→20:05)
[2017-05-09] MEDS: carBAMazepine 200 MG TAB PO SCH ×3 (09:30→20:05)
--- NOTE | 2017-05-09 10:56 | HHI.PR ---
Subjective Patient symptoms today Feeling much better today. Reports Almanza and nephrostomy tube draining well. Objective Vital Signs Vital Signs Date Time Temp Pulse Resp B/P (MAP) Pulse Ox O2 Delivery O2 Flow Rate FiO2 05/09/17 08:03 98.6 90 17 133/79 (97) 98 05/09/17 07:40 Room Air 05/09/17 04:00 99.9 101 18 105/48 (67) 97 05/09/17 04:00 Nasal Cannula 2.00 05/09/17 00:00 98.9 100 20 141/88 (105) 97 05/09/17 00:00 Nasal Cannula 2.00 05/08/17 22:00 97 05/08/17 21:05 Nasal Cannula 2.00 05/08/17 20:00 99.4 97 18 138/94 (109) 95 05/08/17 17:44 96 Nasal Cannula 2.00 05/08/17 16:00 99.8 97 18 148/84 (105) 96 05/08/17 12:00 98.8 100 18 144/77 (99) 93 Intake & Output 05/09/17 05/09/17 07:00 19:00 Intake Total 2523 ml Output Total 1200 ml Balance 1323 ml Intake Oral 600 ml IV Total 1923 ml Output Urine Total 800 ml Drainage Total 400 ml # Bowel Movements 1 Result Diagram: 05/09/1743805/09/17438 Objective Remarks Almanza catheter and Nephrostomy tube with saurabh urine output. Medications and IVs Current Medications Medications (Trade) Dose Ordered Sig/Kelin Route Start Time Stop Time Status Last Admin (NS Flush) 2 ml UNSCH PRN IV FLUSH 05/06/17 21:30 (NS Flush) 2 ml BID IV FLUSH 05/07/17 09:00 05/09/17 09:23 (Protonix Inj) 40 mg DAILY IV PUSH 05/07/17 09:00 05/09/17 09:23 (Tylenol) 500 mg Q4H PRN PO 05/06/17 22:30 05/08/17 15:54 (Morphine Inj) 2 mg Q3H PRN IV PUSH 05/06/17 22:30 05/09/17 04:58 Piperacillin Sod/ Tazobactam Sod 50 ml @ 100 mls/hr Q6H IV 05/07/17 01:00 05/09/17 06:09 Potassium Chloride/Sodium Chloride 1,000 ml @ 130 mls/hr Q7H42M IV 05/07/17 02:30 05/09/17 09:24 (TEGretol) 400 mg Q12HR PO 05/07/17 21:45 05/09/17 09:30 (Lactinex) 1 tab TID PO 05/08/17 13:00 05/09/17 09:22 (Imodium) 2 mg Q4H PRN PO 05/08/17 15:00 05/08/17 15:54 (Duoneb Neb) 1 ampule Q4HR NEB PRN NEB 05/08/17 18:30 (TEGretol) 200 mg DAILY PO 05/10/17 12:00 UNV Assessment and Plan Assessment and Plan Urologic impression: #1 urinary tract infection related to obstructed lower pole moiety of a duplicated left collecting system now being drained with a nephrostomy tube #2 possible early abscess formation lower pole left kidney #3 status post recent left ureteroscopy with ablation of endometrial tumor mass involving the distal limb of the duplicated left collecting system with a group home stent placed within the upper pole moiety. Recommendations: #1 agree with present antibiotic therapy #2 may DC home with nephrostomy tube to gravity drainage when medically stable and cleared by infectious disease #3 will make arrangements for left nephrostogram in approximately 1 week to reassess drainage of the left kidney #4 will DC Almanza catheter today. French Aguilar MD May 09, 2017 10:56
--- NOTE | 2017-05-09 12:55 | HHI.IDPN ---
Note Infectious Disease Note Patient still feels tired. Denies chills. Episode of low grade fever. Denies pains. Admitted with fever, shaking chills, nausea, dizziness, and lightheadedness. The patient also developed vomiting and also diarrhea. PAST MEDICAL HISTORY 1. Endometriosis. 2. Type 2 diabetes mellitus. 3. Pelvic mass status post fulguration of endometrial mass. ureteral stent. 3. Hysterectomy. 4. Breast biopsy. 5. Lumpectomy. 6. Left ureteral stent. 7. Seizure disorder. ALLERGIES AZITHROMYCIN, MEPERIDINE. ANTIBIOTICS: Piperacillin/tazobactam. SOCIAL HISTORY: The patient is . No tobacco. No alcohol. No illicit drug use. OBJECTIVE: Vital Signs Date Time Temp Pulse Resp B/P (MAP) Pulse Ox O2 Delivery O2 Flow Rate FiO2 05/09/17 12:18 98.6 97 17 141/78 (99) 95 05/09/17 08:40 98 Nasal Cannula 2.00 05/09/17 08:03 98.6 90 17 133/79 (97) 98 05/09/17 08:00 90 05/09/17 07:40 Room Air 05/09/17 04:00 99.9 101 18 105/48 (67) 97 05/09/17 04:00 Nasal Cannula 2.00 05/09/17 00:00 98.9 100 20 141/88 (105) 97 05/09/17 00:00 Nasal Cannula 2.00 05/08/17 22:00 97 05/08/17 21:05 Nasal Cannula 2.00 05/08/17 20:00 99.4 97 18 138/94 (109) 95 05/08/17 17:44 96 Nasal Cannula 2.00 05/08/17 16:00 99.8 97 18 148/84 (105) 96 Laboratory Tests Test 05/08/17 07:00 05/08/17 16:58 05/09/17 04:39 White Blood Count 13.5 TH/MM3 12.4 TH/MM3 Red Blood Count 2.80 MIL/MM3 3.11 MIL/MM3 Hemoglobin 8.4 GM/DL 8.8 GM/DL 9.3 GM/DL Hematocrit 25.7 % 26.9 % 28.8 % Mean Corpuscular Volume 91.9 FL 92.6 FL Mean Corpuscular Hemoglobin 30.1 PG 29.8 PG Mean Corpuscular Hemoglobin Concent 32.7 % 32.2 % Red Cell Distribution Width 13.7 % 13.2 % Platelet Count 122 TH/MM3 151 TH/MM3 Mean Platelet Volume 7.6 FL 7.9 FL Neutrophils (%) (Auto) 82.8 % 79.8 % Lymphocytes (%) (Auto) 8.2 % 12.2 % Monocytes (%) (Auto) 8.8 % 7.3 % Eosinophils (%) (Auto) 0.1 % 0.6 % Basophils (%) (Auto) 0.1 % 0.1 % Neutrophils # (Auto) 11.2 TH/MM3 9.9 TH/MM3 Lymphocytes # (Auto) 1.1 TH/MM3 1.5 TH/MM3 Monocytes # (Auto) 1.2 TH/MM3 0.9 TH/MM3 Eosinophils # (Auto) 0.0 TH/MM3 0.1 TH/MM3 Basophils # (Auto) 0.0 TH/MM3 0.0 TH/MM3 CBC Comment DIFF FINAL DIFF FINAL Differential Comment Laboratory Tests Test 05/08/17 07:00 05/08/17 16:58 05/09/17 04:39 Blood Urea Nitrogen 8 MG/DL 4 MG/DL Creatinine 0.93 MG/DL 0.74 MG/DL Random Glucose 153 MG/DL 144 MG/DL Total Protein 5.9 GM/DL 6.4 GM/DL Albumin 1.8 GM/DL 2.0 GM/DL Calcium Level 7.2 MG/DL 7.7 MG/DL Alkaline Phosphatase 71 U/L 80 U/L Aspartate Amino Transf (AST/SGOT) 24 U/L 28 U/L Alanine Aminotransferase (ALT/SGPT) 30 U/L 35 U/L Total Bilirubin 0.3 MG/DL 0.3 MG/DL Sodium Level 141 MEQ/L 140 MEQ/L Potassium Level 3.2 MEQ/L 3.7 MEQ/L Chloride Level 112 MEQ/L 111 MEQ/L Carbon Dioxide Level 19.4 MEQ/L 20.1 MEQ/L Anion Gap 10 MEQ/L 9 MEQ/L Estimat Glomerular Filtration Rate 65 ML/MIN 85 ML/MIN Protein Corrected Calcium 7.8 MG/DL B-Type Natriuretic Peptide 94 PG/ML Microbiology Date/Time Source Procedure Growth Status 05/06/17 18:25 Blood Peripheral Aerobic Blood Culture - Preliminary Gram Negative [place] Resulted 05/06/17 18:25 Blood Peripheral Anaerobic Blood Culture - Preliminary NO GROWTH IN 3 DAYS Resulted 05/06/17 18:15 Blood Peripheral Aerobic Blood Culture - Preliminary Gram Negative [place] Resulted 05/06/17 18:15 Blood Peripheral Anaerobic Blood Culture - Preliminary NO GROWTH IN 3 DAYS Resulted 05/06/17 18:28 Throat Group A Streptococcus Screen - Final NO GP A BETA STREP ISOLATED. Complete 05/06/17 18:28 Throat Group A Streptococcus Screen (OLESYA) - Final Complete 05/06/17 18:28 Nasal Aspirate Influenza Types A,B Antigen (OLESYA) - Final NEGATIVE FOR FLU A AND B ANTIGEN.... Complete 05/06/17 19:35 Urine Catheterized Urine Urine Culture - Final Pseudomonas Aeruginosa Complete PHYSICAL EXAMINATION SONY+NERAL: No acute distress. HEENT: No icterus. Oropharynx no visible lesions. Neck: Supple. No adenopathy. Lungs: Decreased breath sounds. Heart: Regular S1-S2 without murmurs, rubs or gallops. Abdomen: Soft, decreased bowel sounds, nontender. Left nephrostomy has saurabh drainage. Extremities: No clubbing, cyanosis. Left upper extremity swelling. Skin: No rash. Neuro: No gross focal findings. Psychiatric: The patient is calm and cooperative. IMPRESSION 1. Left perinephric abscess. 2. Sepsis due to gram-negative bacteria. 3. UTI due to pseudomonas. 4. Leukocytosis secondary to infection. WBC improving. 5. Status post left ureteral stent. 6. Diarrhea. - c. dif negative. RECOMMENDATIONS 1. Continue piperacillin / tazobactam. 2. Monitor the blood culture. 3. Monitor urine culture. 4. Monitor white blood cell count. 5. Monitor clinical status. Oscar Soares MD May 09, 2017 12:55
--- NOTE | 2017-05-09 12:57 | HHI.FPPN ---
Subjective Remarks No acute issues overnight. Vitals are stable, patient remains afebrile. She continues to feel short of breath with an occasional cough but has been afebrile x 24 hours. She denies any chest pain, fever, chills, nausea or vomiting. She is having an occasional right temporal headache that is not associated with photophobia, blurry vision, or double vision. Her temporal scalp is not tender when she touches it. She is tolerating PO and having good urine output. She has not had any further episodes of diarrhea. (Marti Araiza MD, R3) Objective Vitals Vital Signs Date Time Temp Pulse Resp B/P (MAP) Pulse Ox O2 Delivery O2 Flow Rate FiO2 05/09/17 12:18 98.6 97 17 141/78 (99) 95 05/09/17 08:40 98 Nasal Cannula 2.00 05/09/17 08:03 98.6 90 17 133/79 (97) 98 05/09/17 08:00 90 05/09/17 07:40 Room Air 05/09/17 04:00 99.9 101 18 105/48 (67) 97 05/09/17 04:00 Nasal Cannula 2.00 05/09/17 00:00 98.9 100 20 141/88 (105) 97 05/09/17 00:00 Nasal Cannula 2.00 05/08/17 22:00 97 05/08/17 21:05 Nasal Cannula 2.00 05/08/17 20:00 99.4 97 18 138/94 (109) 95 05/08/17 17:44 96 Nasal Cannula 2.00 05/08/17 16:00 99.8 97 18 148/84 (105) 96 I/O 05/08/17 05/08/17 05/08/17 05/09/17 05/09/17 05/09/17 07:00 15:00 23:00 07:00 15:00 23:00 Intake Total 1340 ml 500 ml 1326 ml 2523 ml Output Total 1150 ml 725 ml 1200 ml Balance 190 ml 500 ml 601 ml 1323 ml Intake Oral 240 ml 600 ml IV Total 1100 ml 500 ml 1326 ml 1923 ml Output Urine Total 1150 ml 800 ml Drainage Total 725 ml 400 ml # Bowel Movements 1 1 (Marti Araiza MD, R3) Result Diagram: 05/09/17 0439 05/09/17 0439 Imaging Last Impressions Chest X-Ray 05/08/17 0000 Signed Impressions: Service Date/Time: April 14:54 - CONCLUSION: 1. Hypoinflation with minimal bibasilar atelectatic changes. 2. No confluent infiltrate or effusion. Greg Meier MD CT Angiography 05/08/17 0000 Signed Impressions: Service Date/Time: April 11:17 - CONCLUSION: 1. No evidence for pulmonary embolism. 2. Minimal bibasilar densities likely atelectasis. 3. Small pleural effusions. 4. Spiculated density right inner upper breast likely surgical scar. Clinical correlation as to whether patient has had previous right breast surgery. If not then patient will need a diagnostic workup as an outpatient. Maxx Acevedo MD Nephrostomy 05/07/17 0000 Signed Impressions: Service Date/Time: Sunday, May 07, 2017 14:22 - CONCLUSION: Uncomplicated nephrostomy tube placement as above. Cesar Tam MD Abdomen/Pelvis CT 05/06/17 1808 Signed Impressions: Service Date/Time: Saturday, May 06, 2017 19:11 - CONCLUSION: 1. Dilated thick-walled lower pole moiety and lower pole ureter on the left with perinephric and periureteral inflammatory changes suggesting obstruction and probable infection of the lower pole moiety. There is a focal area of attenuation within the lower pole of the left kidney measuring 3.6 x 2.6 cm suggestive of possible abscess. 2. Internal ureteral stent within the upper pole moiety on the left which is nondilated. 3. Fibrotic scarring and/or atelectasis within the posterior lung bases. Rivera Ramirez MD Objective Remarks GENERAL: Well-nourished, well-developed female who appears fatigued, sitting comfortably in bed. SKIN: Warm and dry. No rashes or lesions present. EYES: No scleral icterus. No conjunctival injection or drainage. Pupils equal, round, reactive to light and accommodation. Extraocular movements intact. THROAT: Moist mucous membranes. NECK: Supple, trachea midline. CARDIOVASCULAR: Tachycardic with regular rhythm and without murmurs, gallops, or rubs. Strong radial and pedal pulses. CHEST: Symmetric chest expansion with respiration. RESPIRATORY: Regular respiratory rate. Breath sounds are clear to auscultation bilaterally. No accessory muscle use. No wheezes, rhonchi or rales. GASTROINTESTINAL: Abdomen soft, non-tender, nondistended. No masses or hernias. No hepatosplenomegaly. Bowel sounds present. MUSCULOSKELETAL: No cyanosis or edema. No nail changes. BACK: Left CVA tenderness. Left nephrostomy tube no longer draining blood, nephrostomy site clean and dry without erythema or warmth. NEURO: Cranial nerves II through XII grossly intact. Good muscle tone. Normal gait and coordination. PSYCH: Normal mood and affect. Good eye contact. Good insight and judgment. Normal speech. (Marti Araiza MD, R3) A/P Assessment and Plan Patient is a 46 year old female with a PMH significant for endometriosis s/p partial hysterectomy and invasion of left ureter, breast cancer s/p radiation, chemotherapy, and lumpectomy, and epilepsy who presented with fever and AMS and was admitted for severe sepsis secondary to left pyelonephritis with abscess. Now s/p left nephrostomy tube placement on 05/07 by IR. Discharge Planning In several days pending resolution of sepsis. sdw Dr. Mills (Marti Araiza MD, R3) Attending Attestation THIS CASE WAS DISCUSSED WITH THE RESIDENT PHYSICIANS. PATIENT INTERVIEWED AND EXAMINED WITH DR ARAIZA, I HAVE REVIEWED THE RECORD AND AGREE WITH THE ABOVE NOTE AND PLAN OF CARE WAS DISCUSSED. 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 Abd/Pelvis CT significant for L lower pole with perinephric and periureteral inflammatory changes suggesting obstruction and probable infection of lower pole moiety. Decreased attenuation of lower pole of L kidney measuring 3.6x2.6cm suggestive of possible abscess. Internal ureteral stent within upper pole on L which is nondilated. Fibrotic scarring and/or atelectasis within posterior lung bases Left nephrostomy tube placed by IR on 05/07 Lactic acid has trended down to wnl at 1.5 Leukocytosis trending down from 23.5 on admission to 12.4 today Hgb trending back up today Platelets trending back up today Pulmonary CTA negative for PE, shortness of breath likely secondary to sepsis -IVF: Continue maintenance with NS + KCl 20meq @ 130ml/hr -s/p 4 L NS -MAP currently stable in the 100's -05/06 urine culture growing ayala-sensitive pseudomonas -05/06 blood culture x 2 growing gram negative jp -continue Zosyn -ID consulted- appreciate recommendations -Urology consulted- appreciate recommendations (2) Ureteral obstruction, left ICD Codes: N13.5 - Crossing vessel and stricture of ureter without hydronephrosis Status: Acute Plan: s/p cystoscopy, left stent removal, left retrograde pyelogram, left ureteroscopy with fulguration of residual mass consistent with endometrioma and placement of halfway left ureteral stent by Dr. Aguilar 05/05 -Per EMR, plans for L uretal stent to be in place for minimum of 6 weeks (3) Seizure disorder ICD Codes: G40.909 - Seizure disorder Status: Chronic Plan: History of seizure disorder on home Tegretol. Decreased Tegretol yesterday to twice/day, however temporal headache today may be related. Will resume home dose of Tegretol 400mg in AM, 200mg at noon, 400mg in PM. (4) DVT PPX Status: Acute Plan: Bilateral SCD's Lovenox 40mg SQ daily (5) Fluids, Electrolytes, and Nutrition Plan: Fluids: maintenance NS +KCl 20meq @ 130ml/hr Electrolytes: wnl, continue to monitor Nutrition: Regular diet (Marti Araiza MD, R3) Marti Araiza MD, R3 May 09, 2017 12:57 David Mills MD May 09, 2017 15:46
[2017-05-09] MEDS: ENOXAPARIN SODIUM 40 MG/0.4 ML SYRINGE SQ SCH (13:19)
[2017-05-09] MEDS ORDERED: PHARMACY ORDERED LAB ONE (15:45)
[2017-05-10] VITALS (8 sets, daily range): BP systolic 127–156; BP diastolic 78–91; PULSE 73–95; RESP 18; TEMP 97.5–100.3; O2SAT 96–100
[2017-05-10] MEDS: PIPERACIL-TAZO 3.375 GM PREMIX 50 ML IV SCH ×4 (00:02→18:26)
[2017-05-10] MEDS: MORPHINE SULFATE 4 MG/ML INJ IV PUSH PRN ×2 (00:08→22:12)
[2017-05-10] MEDS: ACETAMINOPHEN 500 MG CPLT PO PRN (00:24)
[2017-05-10 07:56] LABS: AUTOMATED NEUTROPHIL # 4.7 TH/MM3 (1.8-7.7); BASOPHIL % 0.5 % (0.0-2.0); EOSINOPHIL # 0.2 TH/MM3 (0-0.4); EOSINOPHIL % 2.9 % (0.0-4.0); HEMATOCRIT 24.1 % (35.0-46.0); HEMO FLAGS DIFF FINAL; LYMPH % 17.7 % (9.0-44.0); LYMPHOCYTE # 1.2 TH/MM3 (1.0-4.8); MEAN CELL VOLUME 90.3 FL (80.0-100.0); MEAN CORPUSCULAR HEMOGLOBIN 30.5 PG (27.0-34.0); MEAN CORPUSCULAR HGB CONC 33.7 % (32.0-36.0); MONO % 8.4 % (0.0-8.0); NEUT % 70.5 % (16.0-70.0); PLATELET COUNT 155 TH/MM3 (150-450); RED BLOOD COUNT 2.67 MIL/MM3 (4.00-5.30); RED CELL DISTRIBUTION WIDTH 13.4 % (11.6-17.2); WHITE BLOOD COUNT 6.7 TH/MM3 (4.0-11.0)
[2017-05-10 08:19] LABS: ANION GAP 7 MEQ/L (5-15); AST (GOT) 33 U/L (15-37); BICARBONATE 24.6 MEQ/L (21.0-32.0); BLOOD UREA NITROGEN 4 MG/DL (7-18); CHLORIDE 111 MEQ/L (98-107); GLOMERULAR FILTRATION RATE 108 ML/MIN (>89); POTASSIUM 3.7 MEQ/L (3.5-5.1); SODIUM (NA) 143 MEQ/L (136-145)
[2017-05-10 08:28] LABS: ALKALINE PHOSPHATASE 78 U/L (45-117); ALT (GPT) 44 U/L (10-53); TOTAL BILIRUBIN ADULT 0.3 MG/DL (0.2-1.0)
--- NOTE | 2017-05-10 08:29 | HHI.FPPN ---
Subjective Remarks No acute issues overnight. Vitals are stable, patient remains afebrile. Her temperature did spike to 100.3 overnight with tachycardia up to 95. She is currently saturating 98% on 2 L nasal cannula. She is starting to feel better overall. She continues to have occasional frontal headaches that are not associated with any visual changes. She denies any chest pain, shortness of breath, fever, chills, nausea or vomiting. She is tolerating by mouth. She is ambulating around the room today without any difficulty. She is voiding independently. Objective Vitals Vital Signs Date Time Temp Pulse Resp B/P (MAP) Pulse Ox O2 Delivery O2 Flow Rate FiO2 05/10/17 07:45 98 Nasal Cannula 2.00 05/10/17 04:34 97.5 73 18 131/81 (98) 100 05/10/17 04:00 Simple Mask 5.00 05/10/17 00:22 100.3 95 18 127/78 (94) 97 05/10/17 00:00 Nasal Cannula 2.00 05/09/17 20:46 98 Nasal Cannula 2.00 05/09/17 20:45 99.3 108 18 148/96 (113) 96 05/09/17 20:15 Nasal Cannula 2.00 05/09/17 20:04 98 05/09/17 16:03 99.4 95 18 143/70 (94) 98 05/09/17 12:30 95 Simple Mask 5.00 05/09/17 12:18 98.6 97 17 141/78 (99) 95 05/09/17 08:40 98 Nasal Cannula 2.00 I/O 05/09/17 05/09/17 05/09/17 05/10/17 05/10/17 05/10/17 07:00 15:00 23:00 07:00 15:00 23:00 Intake Total 2523 ml 50 ml 2947 ml 804 ml Output Total 1200 ml 1600 ml 600 ml Balance 1323 ml 50 ml 1347 ml 204 ml Intake Oral 600 ml 720 ml 240 ml IV Total 1923 ml 50 ml 2227 ml 564 ml Output Urine Total 800 ml 1000 ml 600 ml Drainage Total 400 ml 600 ml # Voids 1 # Bowel Movements 1 1 0 Result Diagram: 05/10/17 0705 05/10/17 0705 Imaging Last Impressions Chest X-Ray 05/08/17 0000 Signed Impressions: Service Date/Time: April 14:54 - CONCLUSION: 1. Hypoinflation with minimal bibasilar atelectatic changes. 2. No confluent infiltrate or effusion. Greg Meier MD CT Angiography 05/08/17 0000 Signed Impressions: Service Date/Time: April 11:17 - CONCLUSION: 1. No evidence for pulmonary embolism. 2. Minimal bibasilar densities likely atelectasis. 3. Small pleural effusions. 4. Spiculated density right inner upper breast likely surgical scar. Clinical correlation as to whether patient has had previous right breast surgery. If not then patient will need a diagnostic workup as an outpatient. Maxx Acevedo MD Nephrostomy 05/07/17 0000 Signed Impressions: Service Date/Time: Sunday, May 07, 2017 14:22 - CONCLUSION: Uncomplicated nephrostomy tube placement as above. Cesar Tam MD Abdomen/Pelvis CT 05/06/17 1808 Signed Impressions: Service Date/Time: Saturday, May 06, 2017 19:11 - CONCLUSION: 1. Dilated thick-walled lower pole moiety and lower pole ureter on the left with perinephric and periureteral inflammatory changes suggesting obstruction and probable infection of the lower pole moiety. There is a focal area of attenuation within the lower pole of the left kidney measuring 3.6 x 2.6 cm suggestive of possible abscess. 2. Internal ureteral stent within the upper pole moiety on the left which is nondilated. 3. Fibrotic scarring and/or atelectasis within the posterior lung bases. Rivera Ramirez MD Objective Remarks GENERAL: Well-nourished, well-developed female in no acute distress, ambulating around room. SKIN: Warm and dry. No rashes or lesions present. EYES: No scleral icterus. No conjunctival injection or drainage. Pupils equal, round, reactive to light and accommodation. Extraocular movements intact. THROAT: Moist mucous membranes. NECK: Supple, trachea midline. CARDIOVASCULAR: Regular rate and rhythm and without murmurs, gallops, or rubs. Strong radial and pedal pulses. CHEST: Symmetric chest expansion with respiration. RESPIRATORY: Regular respiratory rate. Breath sounds are clear to auscultation bilaterally. No accessory muscle use. No wheezes, rhonchi or rales. GASTROINTESTINAL: Abdomen soft, non-tender, nondistended. No masses or hernias. No hepatosplenomegaly. Bowel sounds present. MUSCULOSKELETAL: No cyanosis or edema. No nail changes. BACK: Left CVA tenderness. Left nephrostomy tube without drainage, nephrostomy site clean and dry without erythema or warmth. NEURO: Cranial nerves II through XII grossly intact. Good muscle tone. Normal gait and coordination. PSYCH: Normal mood and affect. Good eye contact. Good insight and judgment. Normal speech. A/P Assessment and Plan Patient is a 46 year old female with a PMH significant for endometriosis s/p partial hysterectomy and invasion of left ureter, breast cancer s/p radiation, chemotherapy, and lumpectomy, and epilepsy who presented with fever and AMS and was admitted for severe sepsis secondary to left pyelonephritis with abscess. Now s/p left nephrostomy tube placement on 05/07 by IR. Clinically improving. Discharge Planning In several days pending resolution of sepsis. sdw Dr. 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 Abd/Pelvis CT significant for L lower pole with perinephric and periureteral inflammatory changes suggesting obstruction and probable infection of lower pole moiety. Decreased attenuation of lower pole of L kidney measuring 3.6x2.6cm suggestive of possible abscess. Internal ureteral stent within upper pole on L which is nondilated. Fibrotic scarring and/or atelectasis within posterior lung bases Left nephrostomy tube placed by IR on 05/07 Lactic acid has trended down to wnl at 1.5 Leukocytosis trending down from 23.5 on admission to wnl at 6.7 today Hgb trending down today, continue to monitor Platelets stable Pulmonary CTA negative for PE, shortness of breath likely secondary to sepsis -IVF: Continue maintenance with NS + KCl 20meq @ 130ml/hr -s/p 4 L NS -MAP currently stable in the s -05/06 urine culture growing ayala-sensitive pseudomonas -05/06 blood culture x 2 growing pseudomonas -continue Zosyn (started 05/06) -ID consulted- appreciate recommendations, continue Zosyn and follow cultures -Urology consulted- appreciate recommendations, when ready, DC home with nephrostomy tube to gravity drainage. Left nephrostogram in 1 week to reassess drainage of left kidney (2) Ureteral obstruction, left ICD Codes: N13.5 - Crossing vessel and stricture of ureter without hydronephrosis Status: Acute Plan: s/p cystoscopy, left stent removal, left retrograde pyelogram, left ureteroscopy with fulguration of residual mass consistent with endometrioma and placement of joint terminal attack controller left ureteral stent by Dr. Aguilar 05/05 -Per EMR, plans for L uretal stent to be in place for minimum of 6 weeks (3) Seizure disorder ICD Codes: G40.909 - Seizure disorder Status: Chronic Plan: History of seizure disorder on home Tegretol. Continue home dose of Tegretol 400mg in AM, 200mg at noon, 400mg in PM. (4) DVT PPX Status: Acute Plan: Bilateral SCD's Lovenox 40mg SQ daily (5) Fluids, Electrolytes, and Nutrition Plan: Fluids: maintenance NS +KCl 20meq @ 130ml/hr Electrolytes: wnl, continue to monitor Nutrition: Regular diet Marti Myers MD, R3 May 10, 2017 08:29
[2017-05-10] MEDS ORDERED: KETOROLAC TROMETHAMINE 10 MG TAB PO PRN (08:30)
[2017-05-10] MEDS: SODIUM CHLORIDE 0.9% FLUSH 10 ML FLUSH IV FLUSH SCH ×2 (09:00→21:00)
[2017-05-10] MEDS: carBAMazepine 200 MG TAB PO SCH ×3 (09:00→21:00)
[2017-05-10] MEDS: LACTOBACILLUS ACIDOPHILUS TAB PO SCH ×3 (09:43→18:25)
[2017-05-10] MEDS: PANTOPRAZOLE SODIUM 40 MG VIAL IV PUSH SCH (09:43)
[2017-05-10] MEDS: NS + KCL 20 MEQ INJ 1,000 ML IV SCH ×2 (12:32→21:58)
[2017-05-10] MEDS: ENOXAPARIN SODIUM 40 MG/0.4 ML SYRINGE SQ SCH (14:29)
[2017-05-10 16:07] LABS: HEMATOCRIT 24.1 % (35.0-46.0); REVIEW FLAG FINAL
[2017-05-11] VITALS (8 sets, daily range): BP systolic 123–179; BP diastolic 74–93; PULSE 70–93; RESP 16–18; TEMP 97.3–98.7; O2SAT 94–100
[2017-05-11] MEDS: PIPERACIL-TAZO 3.375 GM PREMIX 50 ML IV SCH ×4 (01:07→18:19)
[2017-05-11] MEDS: NS + KCL 20 MEQ INJ 1,000 ML IV SCH (06:04)
[2017-05-11 08:22] LABS: HEMATOCRIT 26.7 % (35.0-46.0); MEAN CELL VOLUME 90.4 FL (80.0-100.0); MEAN CORPUSCULAR HEMOGLOBIN 30.2 PG (27.0-34.0); MEAN CORPUSCULAR HGB CONC 33.4 % (32.0-36.0); PLATELET COUNT 238 TH/MM3 (150-450); RED BLOOD COUNT 2.95 MIL/MM3 (4.00-5.30); RED CELL DISTRIBUTION WIDTH 13.2 % (11.6-17.2); REVIEW FLAG FINAL
[2017-05-11] MEDS: SODIUM CHLORIDE 0.9% FLUSH 10 ML FLUSH IV FLUSH SCH ×2 (08:47→21:00)
[2017-05-11] MEDS: carBAMazepine 200 MG TAB PO SCH ×3 (08:47→21:00)
[2017-05-11] MEDS: LACTOBACILLUS ACIDOPHILUS TAB PO SCH ×3 (08:47→18:19)
[2017-05-11] MEDS ORDERED: ACETAMIN 325 MG/BUTALBITAL 50 MG/CAFFEINE 40 MG TAB PO PRN (09:00)
--- NOTE | 2017-05-11 09:00 | HHI.FPPN ---
Subjective Remarks No acute issues overnight. Vitals are stable, patient remains afebrile. She continues to have frontal headaches that have not improved with the Toradol. She also continues to feel short of breath and is saturating 98-99% on 2L NC. She denies any history of asthma or COPD. She denies any chest pain, fever, chills, nausea, or vomiting. She feels ready to go home. She is concerned that her left arm is swollen but not painful. She attributes this to her IV. She continues to have good urine output. Objective Vitals Vital Signs Date Time Temp Pulse Resp B/P (MAP) Pulse Ox O2 Delivery O2 Flow Rate FiO2 05/11/17 08:00 98.6 84 18 163/93 (116) 97 05/11/17 04:00 Nasal Cannula 2.00 Humidified 05/11/17 04:00 97.3 70 16 123/74 (90) 99 05/11/17 00:00 98.7 84 18 138/79 (98) 99 05/11/17 00:00 Nasal Cannula 2.00 Humidified 05/10/17 20:13 89 05/10/17 20:00 99.4 90 18 156/90 (112) 98 05/10/17 20:00 Nasal Cannula 2.00 Humidified 05/10/17 16:00 98.8 88 18 153/91 (111) 96 05/10/17 12:00 97.5 85 18 150/87 (108) 98 I/O 05/10/17 05/10/17 05/10/17 05/11/17 05/11/17 05/11/17 07:00 15:00 23:00 07:00 15:00 23:00 Intake Total 804 ml 1960 ml 1440 ml Output Total 600 ml 1150 ml 1625 ml Balance 204 ml 810 ml -185 ml Intake Oral 240 ml 960 ml 480 ml IV Total 564 ml 1000 ml 960 ml Output Urine Total 600 ml 700 ml 1150 ml Drainage Total 450 ml 475 ml # Bowel Movements 0 3 1 Result Diagram: 05/11/17 0755 05/10/17 0705 Imaging Last Impressions Chest X-Ray 05/08/17 0000 Signed Impressions: Service Date/Time: April 14:54 - CONCLUSION: 1. Hypoinflation with minimal bibasilar atelectatic changes. 2. No confluent infiltrate or effusion. Greg Meier MD CT Angiography 05/08/17 0000 Signed Impressions: Service Date/Time: April 11:17 - CONCLUSION: 1. No evidence for pulmonary embolism. 2. Minimal bibasilar densities likely atelectasis. 3. Small pleural effusions. 4. Spiculated density right inner upper breast likely surgical scar. Clinical correlation as to whether patient has had previous right breast surgery. If not then patient will need a diagnostic workup as an outpatient. Maxx Acevedo MD Nephrostomy 05/07/17 0000 Signed Impressions: Service Date/Time: Sunday, May 07, 2017 14:22 - CONCLUSION: Uncomplicated nephrostomy tube placement as above. Cesar Tam MD Abdomen/Pelvis CT 05/06/17 1808 Signed Impressions: Service Date/Time: Saturday, May 06, 2017 19:11 - CONCLUSION: 1. Dilated thick-walled lower pole moiety and lower pole ureter on the left with perinephric and periureteral inflammatory changes suggesting obstruction and probable infection of the lower pole moiety. There is a focal area of attenuation within the lower pole of the left kidney measuring 3.6 x 2.6 cm suggestive of possible abscess. 2. Internal ureteral stent within the upper pole moiety on the left which is nondilated. 3. Fibrotic scarring and/or atelectasis within the posterior lung bases. Rivera Ramirez MD Objective Remarks GENERAL: Well-nourished, well-developed female in no acute distress. SKIN: Warm and dry. No rashes or lesions present. EYES: No scleral icterus. No conjunctival injection or drainage. Extraocular movements intact. THROAT: Moist mucous membranes. NECK: Supple, trachea midline. CARDIOVASCULAR: Regular rate and rhythm and without murmurs, gallops, or rubs. Strong radial and pedal pulses. CHEST: Symmetric chest expansion with respiration. RESPIRATORY: Regular respiratory rate. Breath sounds are clear to auscultation bilaterally with inspiratory wheezes throughout. No accessory muscle use. No rhonchi or rales. GASTROINTESTINAL: Abdomen soft, non-tender, nondistended. No masses or hernias. No hepatosplenomegaly. Bowel sounds present. MUSCULOSKELETAL: No cyanosis or edema. No nail changes. BACK: Left CVA tenderness. Left nephrostomy tube with drainage of clear urine, nephrostomy site clean and dry without erythema or warmth. NEURO: Cranial nerves II through XII grossly intact. Good muscle tone. Normal gait and coordination. PSYCH: Normal mood and affect. Good eye contact. Good insight and judgment. Normal speech. A/P Assessment and Plan Patient is a 46 year old female with a PMH significant for endometriosis s/p partial hysterectomy and invasion of left ureter, breast cancer s/p radiation, chemotherapy, and lumpectomy, and epilepsy who presented with fever and AMS and was admitted for severe sepsis secondary to left pyelonephritis with abscess. Now s/p left nephrostomy tube placement on 05/07 by IR. Clinically improving. Discharge Planning In 1-2 days pending continued clinical improvement. sdw Dr. 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 Abd/Pelvis CT significant for L lower pole with perinephric and periureteral inflammatory changes suggesting obstruction and probable infection of lower pole moiety. Decreased attenuation of lower pole of L kidney measuring 3.6x2.6cm suggestive of possible abscess. Internal ureteral stent within upper pole on L which is nondilated. Fibrotic scarring and/or atelectasis within posterior lung bases Left nephrostomy tube placed by IR on 05/07, now draining clear urine. Lactic acid, WBC now wnl Hgb stable Platelets stable Pulmonary CTA negative for PE -DC IV fluids today -05/06 urine culture growing ayala-sensitive pseudomonas -05/06 blood culture x 2 growing ayala-sensitive pseudomonas -continue Zosyn (started 05/06) -ID consulted- appreciate recommendations, continue Zosyn and follow cultures -Urology consulted- appreciate recommendations, when ready, DC home with nephrostomy tube to gravity drainage. Left nephrostogram in 1 week to reassess drainage of left kidney (2) Ureteral obstruction, left ICD Codes: N13.5 - Crossing vessel and stricture of ureter without hydronephrosis Status: Chronic Plan: s/p cystoscopy, left stent removal, left retrograde pyelogram, left ureteroscopy with fulguration of residual mass consistent with endometrioma and placement of care home left ureteral stent by Dr. Aguilar 05/05 -Per EMR, plans for L uretal stent to be in place for minimum of 6 weeks (3) Shortness of breath ICD Codes: R06.02 - Shortness of breath Status: Acute Plan: Maintaining adequate O2 saturations 05/08 CTA showed no evidence of PE 05/08 CXR showed hypoinflation with minimal bibasilar atelectatic changes Wheezing on exam today, no history of asthma or COPD Hgb trending up today -Continue incentive spirometer -Duonebs Q4H (4) Seizure disorder ICD Codes: G40.909 - Seizure disorder Status: Chronic Plan: History of seizure disorder on home Tegretol. Continue home dose of Tegretol 400mg in AM, 200mg at noon, 400mg in PM. (5) DVT PPX Status: Acute Plan: Bilateral SCD's Lovenox 40mg SQ daily (6) Fluids, Electrolytes, and Nutrition Plan: Fluids: DC IV fluids today Electrolytes: wnl, continue to monitor Nutrition: Regular diet Marti Myers MD, R3 May 11, 2017 09:00
[2017-05-11 09:01] LABS: POTASSIUM 3.8 MEQ/L (3.5-5.1)
[2017-05-11] MEDS: RESP: ALBUTEROL 2.5 MG/IPRATROPIUM 0.5 MG NEB (SCH) NEB ×3 (12:12→20:06)
[2017-05-11] MEDS ORDERED: cloNIDine HCL 0.1 MG TAB PO PRN (12:45)
[2017-05-11] MEDS: ENOXAPARIN SODIUM 40 MG/0.4 ML SYRINGE SQ SCH (13:38)
[2017-05-11] MEDS ORDERED: LORazepam 2 MG/ML VIAL IV PRN (20:45)
--- NOTE | 2017-05-11 20:50 | HHI.PR ---
Addendum to Inpatient Note Addendum Reason: Additional Documentation Additional Information Medical team contacted by nursing staff prior to Tegretol administration. Repeat Tegretol level continues to be elevated at 12.2. Patient has been asymptomatic during this hospitalization per chart review. Her home dose of Tegretol has been continued with 400 mg morning and night with 200 mg at noon. Of note, patient's Tegretol level at admission was 12.2 as well. Medical team will hold nightly dose of Tegretol at this time. Order for Ativan 1 mg when necessary for seizures placed. Steven Maravilla MD R2 May 11, 2017 20:50
[2017-05-12] VITALS: BP 162/85; PULSE 78; RESP 20; TEMP 98; O2SAT 99
[2017-05-12] MEDS: PIPERACIL-TAZO 3.375 GM PREMIX 50 ML IV SCH ×2 (00:21→07:00)
[2017-05-12 04:00] VITALS: BP 168/91; PULSE 76; RESP 18; TEMP 98.7; O2SAT 98
[2017-05-12 08:00] VITALS: BP 175/87; PULSE 79; PULSE 80; RESP 17; TEMP 98.1; O2SAT 96
[2017-05-12] MEDS: RESP: ALBUTEROL 2.5 MG/IPRATROPIUM 0.5 MG NEB (SCH) NEB (08:00)
[2017-05-12 08:47] VITALS: O2SAT 96
[2017-05-12] MEDS: carBAMazepine 200 MG TAB PO SCH (09:00)
[2017-05-12 09:38] LABS: HEMATOCRIT 26.4 % (35.0-46.0); MEAN CELL VOLUME 90.2 FL (80.0-100.0); MEAN CORPUSCULAR HEMOGLOBIN 29.2 PG (27.0-34.0); MEAN CORPUSCULAR HGB CONC 32.4 % (32.0-36.0); PLATELET COUNT 314 TH/MM3 (150-450); RED BLOOD COUNT 2.92 MIL/MM3 (4.00-5.30); RED CELL DISTRIBUTION WIDTH 13.1 % (11.6-17.2); REVIEW FLAG FINAL; WHITE BLOOD COUNT 7.6 TH/MM3 (4.0-11.0)
[2017-05-12 10:10] LABS: BICARBONATE 26.9 MEQ/L (21.0-32.0); POTASSIUM 3.5 MEQ/L (3.5-5.1)
--- NOTE | 2017-05-12 10:26 | HHI.FPPN ---
Subjective Remarks Patient seen and examined this morning. Temperature 98.1, pulse 79, respiratory rate 17, blood pressure 175/87, pulse ox 96. Looking back at patient's clinic vitals as well as this hospitalization she had multiple episodes of elevated blood pressure. Anticipate discharging the patient on hydrochlorothiazide. She is agrees with this plan. Her Tegretol was held during the night due to a level of 12.2. She'll be restarted on the medication and discharged on her home dose. (Robert Pennington MD, R3) Objective Vitals Vital Signs Date Time Temp Pulse Resp B/P (MAP) Pulse Ox O2 Delivery O2 Flow Rate FiO2 05/12/17 08:47 96 21 05/12/17 08:00 98.1 79 17 175/87 (116) 96 05/12/17 04:00 98.7 76 18 168/91 (116) 98 05/12/17 00:00 98.0 78 20 162/85 (110) 99 05/12/17 00:00 Nasal Cannula 2.00 Humidified 05/11/17 20:08 99 Nasal Cannula 2.00 05/11/17 20:00 Room Air 05/11/17 20:00 98.1 86 18 160/74 (102) 100 05/11/17 16:00 98.0 88 18 161/84 (109) 94 05/11/17 12:00 98.6 87 18 179/87 (117) 97 I/O 05/11/17 05/11/17 05/11/17 05/12/17 05/12/17 05/12/17 07:00 15:00 23:00 07:00 15:00 23:00 Intake Total 1440 ml 1918 ml 760 ml 50 ml Output Total 1625 ml 1350 ml 1100 ml Balance -185 ml 568 ml -340 ml 50 ml Intake Oral 480 ml 1460 ml 710 ml IV Total 960 ml 458 ml 50 ml 50 ml Output Urine Total 1150 ml 1000 ml 450 ml Drainage Total 475 ml 350 ml 650 ml # Bowel Movements 1 4 (Robert Pennnigton MD, R3) Result Diagram: 05/12/17 0800 05/12/17 0800 Objective Remarks GENERAL: Well-nourished, well-developed patient. No acute distress. SKIN: Warm and dry. No rash. EYES: No scleral icterus. No injection or drainage. PERRLA. EOMI. HENT: Normocephalic. Atraumatic. MMM. NECK: No visible JVD or lymphadenopathy. CARDIOVASCULAR: Regular rate and rhythm RESPIRATORY: Clear to all station bilaterally GASTROINTESTINAL: Abdomen nondistended. MUSCULOSKELETAL: Strength grossly WNL. BACK: Without obvious deformity. Stent with nephrostomy tube in place, clean dry and intact NEURO/PSYCH: Afocal. Awake, alert, and oriented x3. (Robert Pennington MD, R3) A/P Assessment and Plan Patient is a 46 year old female with a PMH significant for endometriosis s/p partial hysterectomy and invasion of left ureter, breast cancer s/p radiation, chemotherapy, and lumpectomy, and epilepsy who presented with fever and AMS and was admitted for severe sepsis secondary to left pyelonephritis with abscess. Now s/p left nephrostomy tube placement on 05/07 by IR. Clinically improving. Discharge Planning Discharge home today dw Dr. Mcgraw (Robert Pennington MD, R3) Attending Attestation Patient seen and examined. Case reviewed and discussed with the resident team. Agree with plan of care as discussed with me and documented in the resident note. agree with starting BP meds. She has been stable for many years with her seizure meds and prefers to stay on her doses and follow up as an outpt. She is asymptomatic from any side effects. 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 Abd/Pelvis CT significant for L lower pole with perinephric and periureteral inflammatory changes suggesting obstruction and probable infection of lower pole moiety. Decreased attenuation of lower pole of L kidney measuring 3.6x2.6cm suggestive of possible abscess. Internal ureteral stent within upper pole on L which is nondilated. Fibrotic scarring and/or atelectasis within posterior lung bases Left nephrostomy tube placed by IR on 05/07, now draining clear urine. Lactic acid, WBC now wnl Hgb stable Platelets stable Pulmonary CTA negative for PE -05/06 urine culture growing ayala-sensitive pseudomonas -05/06 blood culture x 2 growing ayala-sensitive pseudomonas -continue Zosyn (started 05/06) -Anticipate discharge with ciprofloxacin 50 mg twice a day for 2 weeks -ID consulted- appreciate recommendations, continue Zosyn and follow cultures -Urology consulted- appreciate recommendations, when ready, DC home with nephrostomy tube to gravity drainage. Left nephrostogram in 1 week to reassess drainage of left kidney (2) Ureteral obstruction, left ICD Codes: N13.5 - Crossing vessel and stricture of ureter without hydronephrosis Status: Chronic Plan: s/p cystoscopy, left stent removal, left retrograde pyelogram, left ureteroscopy with fulguration of residual mass consistent with endometrioma and placement of usp left ureteral stent by Dr. Aguilar 05/05 -Per EMR, plans for L uretal stent to be in place for minimum of 6 weeks (3) Shortness of breath ICD Codes: R06.02 - Shortness of breath Status: Acute Plan: Maintaining adequate O2 saturations 05/08 CTA showed no evidence of PE 05/08 CXR showed hypoinflation with minimal bibasilar atelectatic changes Wheezing on exam today, no history of asthma or COPD Hgb trending up today -Continue incentive spirometer -Duonebs Q4H (4) Seizure disorder ICD Codes: G40.909 - Seizure disorder Status: Chronic Plan: History of seizure disorder on home Tegretol. Continue home dose of Tegretol 400mg in AM, 200mg at noon, 400mg in PM. (5) Hypertension ICD Codes: I10 - Essential (primary) hypertension Plan: Patient's review of charts that show multiple episodes of elevated blood pressure. She's had elevated blood pressure throughout her hospitalization. We 'll be starting her on outpatient treatment and she will follow up with her PCP. -Starting hydrochlorothiazide 12.5 mg daily (6) DVT PPX Status: Acute Plan: Bilateral SCD's Lovenox 40mg SQ daily (7) Fluids, Electrolytes, and Nutrition Plan: Fluids: DC IV fluids today Electrolytes: wnl, continue to monitor Nutrition: Regular diet (Robert Pennington MD, R3) Problem Qualifiers (1) Hypertension: Qualified Codes: I10 - Essential (primary) hypertension Robert Pennington MD, R3 May 12, 2017 10:26 Tiffany Mcgraw MD May 12, 2017 11:10
[2017-05-12] MEDS: LACTOBACILLUS ACIDOPHILUS TAB PO SCH (10:28)
[2017-05-12] MEDS: SODIUM CHLORIDE 0.9% FLUSH 10 ML FLUSH IV FLUSH SCH (10:29)
[2017-05-12] MEDS ORDERED: HYDROCHLOROTHIAZIDE 12.5 MG CAP PO SCH (10:30)
--- NOTE | 2017-05-12 10:50 | HHI.IDPN ---
Note Infectious Disease Note Patient feels okay. No fever, chills, nausea or diarrhea. Nephrostomy tube has clear urine. Admitted with fever, shaking chills, nausea, dizziness, and lightheadedness. The patient also developed vomiting and also diarrhea. PAST MEDICAL HISTORY 1. Endometriosis. 2. Type 2 diabetes mellitus. 3. Pelvic mass status post fulguration of endometrial mass. ureteral stent. 3. Hysterectomy. 4. Breast biopsy. 5. Lumpectomy. 6. Left ureteral stent. 7. Seizure disorder. ALLERGIES AZITHROMYCIN, MEPERIDINE. ANTIBIOTICS: Piperacillin/tazobactam. SOCIAL HISTORY: The patient is . No tobacco. No alcohol. No illicit drug use. OBJECTIVE: Vital Signs Date Time Temp Pulse Resp B/P (MAP) Pulse Ox O2 Delivery O2 Flow Rate FiO2 05/12/17 08:47 96 21 05/12/17 08:00 98.1 79 17 175/87 (116) 96 05/12/17 04:00 98.7 76 18 168/91 (116) 98 05/12/17 00:00 98.0 78 20 162/85 (110) 99 05/12/17 00:00 Nasal Cannula 2.00 Humidified 05/11/17 20:08 99 Nasal Cannula 2.00 05/11/17 20:00 Room Air 05/11/17 20:00 98.1 86 18 160/74 (102) 100 05/11/17 16:00 98.0 88 18 161/84 (109) 94 05/11/17 12:00 98.6 87 18 179/87 (117) 97 PHYSICAL EXAMINATION GENERAL: No acute distress. HEENT: No icterus. Oropharynx no visible lesions. Neck: Supple. No adenopathy. Lungs: Decreased breath sounds. Heart: Regular S1-S2 without murmurs, rubs or gallops. Abdomen: Soft, decreased bowel sounds, nontender. Left nephrostomy has clear urine. Extremities: No clubbing, cyanosis. Left upper extremity swelling slightly improved. Skin: No rash. Neuro: No gross focal findings. Psychiatric: The patient is calm and cooperative. IMPRESSION 1. Left perinephric abscess. 2. Sepsis due to pseudomonas. 3. UTI due to pseudomonas. 4. Leukocytosis secondary to infection. Improved. 5. Status post left ureteral stent. 6. Diarrhea. Resolved. RECOMMENDATIONS Stop piperacillin / tazobactam. Okay to discharge on PO Ciprofloxacin 500mg bid x 2 weeks. D/W Dr. Pennington. Oscar Soares MD May 12, 2017 10:50
[2017-05-12] MEDS ORDERED: PERC5TAB12 PO (10:51)
[2017-05-12] MEDS ORDERED: HYDR12.57 PO (10:51)
[2017-05-12] MEDS ORDERED: CIPR500T2 PO (10:51)
--- NOTE | 2017-05-12 10:54 | HHI.DCPOC ---
Discharge Care Plan Diagnosis: (1) Ureteral obstruction, left (2) Severe sepsis (3) Seizure disorder (4) Hypertension Goals to Promote Your Health * To prevent worsening of your condition and complications * To maintain your health at the optimal level Directions to Meet Your Goals Take your medications as prescribed Follow your dietary instruction Follow activity as directed Keep your appointments as scheduled Take your immunizations and boosters as scheduled If your symptoms worsen call your PCP, if no PCP go to Urgent Care Center or Emergency Room Smoking is Dangerous to Your Health. Avoid second hand smoke Call the 24-hour hour crisis hotline for domestic abuse at Robert Pennington MD, R3 May 12, 2017 10:54
--- NOTE | 2017-05-12 10:55 | HHI.DS ---
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 Abd/Pelvis CT significant for L lower pole with perinephric and periureteral inflammatory changes suggesting obstruction and probable infection of lower pole moiety. Decreased attenuation of lower pole of L kidney measuring 3.6x2.6cm suggestive of possible abscess. Internal ureteral stent within upper pole on L which is nondilated. Fibrotic scarring and/or atelectasis within posterior lung bases Left nephrostomy tube placed by IR on 05/07, now draining clear urine. Lactic acid, WBC now wnl Hgb stable Platelets stable Pulmonary CTA negative for PE -05/06 urine culture growing ayala-sensitive pseudomonas -05/06 blood culture x 2 growing ayala-sensitive pseudomonas -continue Zosyn (started 05/06) -Anticipate discharge with ciprofloxacin 50 mg twice a day for 2 weeks -ID consulted- appreciate recommendations, continue Zosyn and follow cultures -Urology consulted- appreciate recommendations, when ready, DC home with nephrostomy tube to gravity drainage. Left nephrostogram in 1 week to reassess drainage of left kidney ICD Codes: A41.9 - Sepsis, unspecified organism; R65.20 - Severe sepsis without septic shock Status: Resolved (2) Ureteral obstruction, left Diagnosis: Principal Plan: s/p cystoscopy, left stent removal, left retrograde pyelogram, left ureteroscopy with fulguration of residual mass consistent with endometrioma and placement of health analytics consultant left ureteral stent by Dr. Aguilar 05/05 -Per EMR, plans for L uretal stent to be in place for minimum of 6 weeks ICD Codes: N13.5 - Crossing vessel and stricture of ureter without hydronephrosis Status: Chronic (3) Shortness of breath Diagnosis: Principal Plan: Maintaining adequate O2 saturations 05/08 CTA showed no evidence of PE 05/08 CXR showed hypoinflation with minimal bibasilar atelectatic changes Wheezing on exam today, no history of asthma or COPD Hgb trending up today -Continue incentive spirometer -Duonebs Q4H ICD Codes: R06.02 - Shortness of breath Status: Acute (4) Seizure disorder Diagnosis: Secondary Plan: History of seizure disorder on home Tegretol. Continue home dose of Tegretol 400mg in AM, 200mg at noon, 400mg in PM. ICD Codes: G40.909 - Seizure disorder Status: Chronic (5) Hypertension Diagnosis: Secondary Plan: Patient's review of charts that show multiple episodes of elevated blood pressure. She's had elevated blood pressure throughout her hospitalization. We 'll be starting her on outpatient treatment and she will follow up with her PCP. -Starting hydrochlorothiazide 12.5 mg daily ICD Codes: I10 - Essential (primary) hypertension (6) DVT PPX Diagnosis: Secondary Plan: Bilateral SCD's Lovenox 40mg SQ daily Status: Acute (7) Fluids, Electrolytes, and Nutrition Diagnosis: Secondary Plan: Fluids: DC IV fluids today Electrolytes: wnl, continue to monitor Nutrition: Regular diet Consultants Urology Interventional Radiology Procedures Nephrostomy tube Brief History Mrs. Mcknight is a 46 yo F with history of endometriosis, seizure disorder, and ureteral obstruction who presents with fever and altered mental status. Patient reportedly had L ureteral stent placement 05/[address] Aguilar. Patient reportedly was found this evening by her with T 104.5F, "goofy"/ confused, with difficulty ambulating, some SOB/coughing, tiredness. Patient does not report associated abdominal pain, back pain, or dysuria. Patient states that she was prescribed Keflex yesterday; she filled medication this morning. [Interval history: Since arrival at ED and treatment with fluids/antibiotics, patient reportedly improved. Patient given ~3L NS bolus, Vancomycin, and Zosyn; sepsis protocol initiated] CBC/BMP: 05/12/17 0800 05/12/17 0800 Significant Findings Laboratory Tests Test 05/10/17 07:05 05/10/17 15:08 05/11/17 07:55 05/12/17 08:00 Red Blood Count 2.67 MIL/MM3 (4.00-5.30) 2.95 MIL/MM3 (4.00-5.30) 2.92 MIL/MM3 (4.00-5.30) Hemoglobin 8.1 GM/DL (11.6-15.3) 8.2 GM/DL (11.6-15.3) 8.9 GM/DL (11.6-15.3) 8.6 GM/DL (11.6-15.3) Hematocrit 24.1 % (35.0-46.0) 24.1 % (35.0-46.0) 26.7 % (35.0-46.0) 26.4 % (35.0-46.0) Neutrophils (%) (Auto) 70.5 % (16.0-70.0) Monocytes (%) (Auto) 8.4 % (0.0-8.0) Blood Urea Nitrogen 4 MG/DL (7-18) 6 MG/DL (7-18) Random Glucose 132 MG/DL (74-106) 141 MG/DL (74-106) 136 MG/DL (74-106) Total Protein 6.3 GM/DL (6.4-8.2) Albumin 1.8 GM/DL (3.4-5.0) Calcium Level 8.1 MG/DL (8.5-10.1) 8.4 MG/DL (8.5-10.1) 8.3 MG/DL (8.5-10.1) Chloride Level 111 MEQ/L (98-107) 109 MEQ/L (98-107) Carbamazepine (Tegretol) Level 12.2 MCG/ML (4.0-12.0) PE at Discharge GENERAL: Well-nourished, well-developed patient. No acute distress. SKIN: Warm and dry. No rash. EYES: No scleral icterus. No injection or drainage. PERRLA. EOMI. HENT: Normocephalic. Atraumatic. MMM. NECK: No visible JVD or lymphadenopathy. CARDIOVASCULAR: Regular rate and rhythm RESPIRATORY: Clear to all station bilaterally GASTROINTESTINAL: Abdomen nondistended. MUSCULOSKELETAL: Strength grossly WNL. BACK: Without obvious deformity. Stent with nephrostomy tube in place, clean dry and intact NEURO/PSYCH: Afocal. Awake, alert, and oriented x3. Hospital Course Patient was admitted on 05/06 for severe sepsis. She was found to have pyelonephritis due to endometriosis that was blocking the ureter. She quickly improved with nephrostomy tube placement to provide drainage for the kidney. She was started on IV Zosyn while in the hospital and was transitioned to by mouth ciprofloxacin for discharge. She quickly recovered in the hospital with antibiotics and nephrostomy tube placement. She was determined to be stable for discharge home, she will continue to have the nephrostomy tube in place, and will be followed by urology as an outpatient to determine timeline for the nephrostomy tube. Her signs of sepsis resolved and was discharged home with ciprofloxacin 500 mg twice a day for 2 weeks. During his hospitalization as well as looking back at her previous vitals as an outpatient she's been consistently having elevated blood pressure, we'll start her on hydrochlorothiazide and she will follow-up with her PCP for determining continue treatment for her blood pressure. Pt Condition on Discharge: Stable Discharge Disposition: Discharge Home Discharge Instructions DIET: Follow Instructions for: As Tolerated, No Restrictions Activities you can perform: Regular-No Restrictions Follow up Referrals: PCP Follow-up - 1 Week with Fox Rosa Jr., MD Urology - 1 Week with French Aguilar MD New Medications: Ciprofloxacin (Ciprofloxacin) 500 Mg Tab 500 MG PO BID for Infection, #28 TAB 0 Refills Hydrochlorothiazide (Hydrochlorothiazide) 12.5 Mg Cap 12.5 MG PO DAILY for 30 Days, #30 CAP 1 Refill Continued Medications: Carbamazepine (Tegretol) 200 Mg Tab 200 MG PO DIRECTED for Seizure Control, #60 TAB 0 Refills 400MG AM 200MG AFTERNOON 400MG HS Multiple Vitamins W/ Minerals (One Daily For Women) 1 Tab Tab 2 TAB PO DAILY Oxycodone-Acetaminophen (Percocet) 5-325 mg Tab 1-2 TAB PO Q6H PRN for PAIN, #30 TAB 0 Refills (This prescription has been renewed) Vitamins C & E (Cranberry Urinary Comfort) 1 Cap 1 CAP PO DAILY for Urinary Symptom Managemen, CAP 0 Refills Discontinued Medications: Cephalexin (Keflex) 250 Mg Cap 250 MG PO TID for Infection, #15 CAP 0 Refills Robert Pennington MD, R3 May 12, 2017 10:55
[2017-06-04] MEDS ORDERED: LEVA500T20 PO (09:31)
[2017-06-05] MEDS ORDERED: LEVO500T8 PO (09:30)
== END 2017-05-12 12:26 | disposition home or self-care (01) | DRG 871 ==
LOC: NEPE 17:49 → NEDA 20:45 → N04B 22:46
PROVIDERS: ADMIT Family Medicine; ATTEND Family Medicine
PROC: 0T9130Z Drainage of Left Kidney with Drainage Device, Percutaneous Approach (ICD-10-PCS; principal; 2017-05-07)
DX: A41.52 Sepsis due to Pseudomonas (principal); N15.1 Renal and perinephric abscess; N12 Tubulo-interstitial nephritis, not specified as acute or chronic; N13.5 Crossing vessel and stricture of ureter without hydronephrosis; R65.20 Severe sepsis without septic shock; Q63.0 Accessory kidney; I10 Essential (primary) hypertension; E11.9 Type 2 diabetes mellitus without complications; G40.909 Epilepsy, unspecified, not intractable, without status epilepticus; R19.7 Diarrhea, unspecified; Z92.3 Personal history of irradiation; Z85.3 Personal history of malignant neoplasm of breast; Z92.21 Personal history of antineoplastic chemotherapy; Z80.3 Family history of malignant neoplasm of breast; Z84.2 Family history of other diseases of the genitourinary system
CPT/HCPCS: 36600; 50432; 71010; 71275; 74177; 76937; 80048; 80053; 80156; 81001; 82805; 83605; 83880; 85007; 85014; 85018; 85025; 85027; 85610; 85730; 86140; 87040; 87077; 87081; 87086; 87186; 87205; 87493; 87804; 87880; 93005; 94150; 94640; 94664; 94667; 94668; 96361; 96365; 96367; 96375; 99152; 99153; C1729; C1769; C9113; J0610; J1650; J2250; J2270; J2405; J2543; J3010; J3370; J3480; J7030; J7040; J7050; Q9967

== ENCOUNTER 2017-05-15 08:28 | Day surgery (SDC) | payer OTHER ==
[~2017-05-15] VITALS: Ht 167.6 cm; Wt 89.5 kg
[~2017-05-15 08:28] MED LIST changes: -CEPH-459 PO; +CIPR500T2 PO; +HYDR12.57 PO
[2017-05-15] MEDS ORDERED: IOHEXOL 350 MG/ML 50 ML BTL (for RAD DIAG) OTHER ONE (08:29)
[2017-05-15 08:49] VITALS: BP 151/98; PULSE 97; RESP 20; TEMP 97.8; O2SAT 95
[2017-05-15] MEDS ORDERED: SODIUM CHLORIDE 0.9% 1000 ML IV SCH (09:00)
[2017-05-15] MEDS ORDERED: LEVOFLOXACIN 500 MG PREMIX 100 ML - nephrostomy tube insertion or exchange IV SCH (09:00)
[2017-05-15 10:20] VITALS: BP 145/90; PULSE 81; RESP 20; TEMP 97.6; O2SAT 95
--- NOTE | 2017-05-15 11:16 | RADRPT ---
EXAM DATE/TIME: 05/15/2017 10:01 [facility] COMPARISON: NEPHROSTOMY, LEFT, May 07, 2017, 14:22. ANTEGRADE PYELOGRAM, LEFT, June 07, 2016, 8:30. 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 Patient is status post ureteral stent placement into the upper pole collecting system and pe rcutaneous nephrostomy catheter placement into the lower pole collecting system. The patient now pres ents for interval evaluation for possible catheter removal. MEDICAL HISTORY : Endometriosis IBS Endometrial tumor Renal abscess Right breast cancer Seizure disorder Ureteral obstruction SURGICAL HISTORY : Left ureteral stent Right lumpectomy Partial hysterectomy Left nephrostomy Endometrial ablation ENCOUNTER: Subsequent ACUITY: 1 year PAIN SCORE: 0/10 LOCATION: N/A FLUORO TIME: 1.1 minutes IMAGE SERIES: 0 CONTRAST: 10 cc Omnipaque (iohexol) 350 PROCEDURE : 1. Antegrade pyelogram. The risks, benefits and alternatives to the procedure were explained and verbal and written consent w as obtained. Under sterile conditions and using aseptic technique with fluoroscopic guidance the pat ient's existing nephroureteral tube was accessed. Contrast injection through the existing nephrostomy catheter demonstrates patency of the lower pole u reter with reflux of contrast into the upper pole ureter. There is adequate drainage following suffic ient contrast reflux into the upper pole through the ureteral stent. There is persistent obstruction of the distal ureter. CONCLUSION: 1. Patent well-positioned nephrostomy catheter with reflux of contrast through the lower pole ureter into the upper pole ureter and renal pelvis. Following sufficient reflux into the upper pole collecti ng system, there is adequate drainage through the ureteral stent. Plan: Findings were discussed with Dr. Aguilar. We will challenge the nephrostomy catheter for 1 week with repeat evaluation and possible catheter removal. Catheter should be removed over a wire due to challenging initial catheter placement and concern for possible peripheral renal vein injury. Enrique Childress MD on May 15, 2017 at 10:47 Board Certified Radiologist. This report was verified electronically.
[2017-06-04] MEDS ORDERED: LEVA500T20 PO (09:31)
[2017-06-05] MEDS ORDERED: LEVO500T8 PO (09:30)
== END 2017-05-15 10:55 | disposition home or self-care (01) ==
LOC: HROP 08:28 → HRIP 08:29 → HROP 10:55
PROVIDERS: ATTEND Urology
DX: N13.5 Crossing vessel and stricture of ureter without hydronephrosis (principal); G40.909 Epilepsy, unspecified, not intractable, without status epilepticus; K58.9 Irritable bowel syndrome, unspecified; Z85.3 Personal history of malignant neoplasm of breast; Z79.899 Other long term (current) drug therapy
CPT/HCPCS: 50431; Q9967

== ENCOUNTER 2017-05-23 11:18 | Day surgery (SDC) | payer OTHER ==
[2017-05-23] MEDS ORDERED: IOHEXOL 350 MG/ML 50 ML BTL (for RAD DIAG) OTHER ONE (11:19)
[2017-05-23 11:38] VITALS: BP 145/101; PULSE 102; RESP 18; TEMP 98.3; O2SAT 94
[2017-05-23] MEDS ORDERED: SODIUM CHLORIDE 0.9% 1000 ML IV SCH (12:00)
[2017-05-23 13:05] VITALS: BP 145/99; PULSE 100; RESP 20; TEMP 98.6; O2SAT 95
[2017-05-23 13:20] VITALS: BP 160/101; PULSE 101; RESP 20; O2SAT 97
[2017-05-23 13:35] VITALS: BP 153/99; PULSE 115; RESP 20; O2SAT 97
--- NOTE | 2017-05-23 16:12 | PD.RAD ---
Post Procedure Progress Note Pre Procedure Diagnosis: (1) Ureteral obstruction, left Post Procedure Diagnosis: Procedure Date: May 23, 2017 Supervising Radiologist: Greg Meier Proceduralist/Assist: Jeff Chawla RT(R), RT Francoise(R) Plan of Activity Patient to Unit: [facility] Patient Condition: Good See PACS Report for procedural detail/treatment Drainage Procedure Procedure 1 Imaging Guidance: Fluoroscopy Side: Left Procedure Type: Nephrostomy Procedure: Removal, Evaluation Findings: Partially duplicated system on left with common ureter at top of renal pelvis. PCN in lower pole moiety with a double j stent in the upper pole moiety. Contrast flows freely into stented upper pole ureter. Per Urology request, tube d/c'ed Greg Meier MD May 23, 2017 16:12
--- NOTE | 2017-05-23 16:27 | RADRPT ---
EXAM DATE/TIME: 05/23/2017 12:39 [facility] COMPARISON: NEPHROSTOMY TUBE REMOVAL, W/FLUORO, LEFT, June 07, 2016, 14:42. INDICATIONS : Patient presents with ureteral obstruction in need of antegrade pyelogram with possible tube removal. MEDICAL HISTORY : Endometriosis DM Pelvic mass Ureteral obstruction Epilepsy SURGICAL HISTORY : Cystoscopy Left stent removal Hysterectomy Lumpectomy ENCOUNTER: Subsequent ACUITY: 3 weeks PAIN SCORE: 0/10 LOCATION: N/A FLUORO TIME: 0.4 minutes IMAGE SERIES: 4 CONTRAST: 18 cc Omnipaque (iohexol) 350 TECH NOTE: Antegrade pyelogram peformed with fluoroscopy and tube removed.ASHELY CHAMBERS MR#:[id number] Exam Dt/Desc: May 23, 2017NEPHROSTOMY TUBE REMOVAL, W/FLUORO, LEFT PROCEDURE : 1. Antegrade pyelogram. 2. Nephrostomy tube removal. The risks, benefits and alternatives to the procedure were explained and verbal and written consent w as obtained. The site was prepped in sterile fashion. Full sterile technique was used, including ca p, mask, sterile gloves and gown and a large sterile sheet. Hand hygiene and 2% chlorhexidine and/or betadine/alcohol prep was utilized per protocol for cutaneous antisepsis. The skin and subcutaneous tissues were infiltrated with local anesthetic solution. With fluoroscopic guidance the existing nephrostomy catheter was injected. Contrast injection shows the collecting system to be free of obstruction, therefore the tube was removed. Note, the patient i s a partially duplicated system with the upper and lower pole moieties joining at the level of sacral ala. There is a double J stent securing the upper pole moiety and contrast flowed freely from the lo wer pole system into the upper pole ureter. Direct manual pressure was applied to the site. There were no complications and the patient was sent to post anesthesia recovery in stable condition. CONCLUSION: 1. Uncomplicated nephrostomy tube removal as above. 2. Partially duplicated left-sided system as above Greg Meier MD on May 23, 2017 at 16:24 Board Certified Radiologist. This report was verified electronically.
[2017-06-04] MEDS ORDERED: LEVA500T20 PO (09:31)
[2017-06-05] MEDS ORDERED: LEVO500T8 PO (09:30)
== END 2017-05-23 14:50 | disposition home or self-care (01) ==
LOC: HROP 11:18 → HRIP 11:21 → HROP 14:50
PROVIDERS: ATTEND Urology
DX: N13.5 Crossing vessel and stricture of ureter without hydronephrosis (principal); G40.909 Epilepsy, unspecified, not intractable, without status epilepticus; E11.9 Type 2 diabetes mellitus without complications
CPT/HCPCS: 50389; 50431; Q9967

== ENCOUNTER 2017-07-05 14:20 | Emergency (ER) | payer OTHER ==
[~2017-07-05] VITALS: Ht 167.6 cm; Wt 90.0 kg
[~2017-07-05 14:20] MED LIST changes: -CIPR500T2 PO; +LEVA500T33 PO; +LEVO500T8 PO; -PERC5TAB12 PO
[2017-07-05 14:22] VITALS: BP 175/95; PULSE 97; RESP 17; TEMP 98.6; O2SAT 96
[2017-07-05] MEDS ORDERED: SODIUM CHLORIDE 0.9% FLUSH 10 ML FLUSH IV FLUSH PRN (14:45)
[2017-07-05] MEDS ORDERED: SODIUM CHLOR 0.9% 1000 ML INJ 1,000 ML IV SCH (14:45)
--- NOTE | 2017-07-05 14:53 | PD ---
HPI Chief Complaint: Complaint Time Seen by Provider: 14:30 Travel History International Travel<30 days: No Contact w/Intl Traveler<30days: No Traveled to known affect area: No History of Present Illness HPI 46-year-old female presents to the emergency department for evaluation of left lower quadrant abdominal pain that started at 10 AM this morning. Patient reports history of severe endometriosis, left renal stent. Patient was admitted in April of this year for severe sepsis, pyelonephritis, renal abscess. Patient states she has been having hematuria for 2-1/2 weeks. She has been on 2 courses of Levaquin for 5 days. Patient denies any fevers or chills. No chest pain or shortness of breath. She denies any radiation of the pain. Pain is currently 5/10. She declines any pain medication at this time. She states it is throbbing in nature. Severity is moderate. No exacerbating or alleviating factors. Patient's concern of the renal stent may have moved. Patient denies any history of diverticulitis. She reports mild nausea, no vomiting. No diarrhea or constipation. No blood in her stool. She denies any pelvic pain. No abnormal vaginal discharge or risk of STDs. PFSH Past Medical History Hx Anticoagulant Therapy: No Arthritis: No Asthma: No Autoimmune Disease: No Blood Disorders: No Anxiety: No Depression: No Heart Rhythm Problems: No Cancer: Yes (RIGHT BREAST CANCER) Cardiovascular Problems: No High Cholesterol: No Chemotherapy: Yes Chest Pain: No Congestive Heart Failure: No COPD: No Cerebrovascular Accident: No Diabetes: No Diminished Hearing: No Endocrine: No Gastrointestinal Disorders: Yes (HX IBS) GERD: No Glaucoma: No Genitourinary: No Headaches: No Hepatitis: No Hiatal Hernia: No Hypertension: No Immune Disorder: No Kidney Stones: No Musculoskeletal: No Neurologic: Yes (EPILEPSY) Psychiatric: No Reproductive: No Respiratory: No Myocardial Infarction: No Radiation Therapy: No Renal Failure: No Seizures: Yes Sickle Cell Disease: No Sleep Apnea: No Thyroid Disease: No Ulcer: No : 2 Para: 2 Ovarian Cysts: Yes (REMOVED FROM LEFT OVARY 1995) Past Surgical History Abdominal Surgery: No AICD: No Body Medical Devices: KIDNEY STENTS Cardiac Surgery: No Ear Surgery: No Endocrine Surgery: No Eye Surgery: No Genitourinary Surgery: Yes (LEFT KIDNEY 2 STENTS, LEFT NEPHRO TUBES X2, stents removed from kidney) Gynecologic Surgery: Yes (PARTIAL HYSTERECTOMY) Hysterectomy: Yes Insulin Pump: No Joint Replacement: No Neurologic Surgery: No Oral Surgery: No Pacemaker: No Thoracic Surgery: Yes (LUMPECTOMY RIGHT BREAST 2006) Other Surgery: Yes (RIGHT BREAST CA SURGERY ) Social History Alcohol Use: No Tobacco Use: No Substance Use: No Allergies-Medications (Allergen,Severity, Reaction): Coded Allergies: meperidine (Verified Allergy, Severe, Respiratory Failure, 07/05/17) azithromycin (Verified Allergy, Intermediate, Hives, 07/05/17) Reported Meds & Prescriptions Reported Meds & Active Scripts Active Hydrochlorothiazide 12.5 Mg Cap 12.5 Mg PO DAILY 30 Days Reported One Daily For Women (Multiple Vitamins W/ Minerals) 1 Tab Tab 2 Tab PO DAILY Tegretol (Carbamazepine) 200 Mg Tab 200 Mg PO DIRECTED 400MG AM 200MG AFTERNOON 400MG HS Review of Systems Except as stated in HPI: all other systems reviewed are Neg Physical Exam Narrative GENERAL: Well-nourished, well-developed female patient, ambulatory. Afebrile. SKIN: Focused skin assessment warm/dry. HEAD: Normocephalic. Atraumatic. EYES: No scleral icterus. No injection or drainage. NECK: Supple, trachea midline. No JVD or lymphadenopathy. CARDIOVASCULAR: Regular rate and rhythm without murmurs, gallops, or rubs. RESPIRATORY: Breath sounds equal bilaterally. No accessory muscle use. Lungs sounds are clear to auscultation. GASTROINTESTINAL: Abdomen soft and nondistended. Tenderness to palpation over left lower quadrant. MUSCULOSKELETAL: No cyanosis, or edema. BACK: Nontender without obvious deformity. No CVA tenderness. Data Data Last Documented VS Vital Signs Date Time Temp Pulse Resp B/P (MAP) Pulse Ox O2 Delivery O2 Flow Rate FiO2 07/05/17 15:22 90 22 170/94 (119) 96 Room Air 07/05/17 14:22 98.6 Orders Orders Complete Blood Count With Diff (07/05/17 14:45) Comprehensive Metabolic Panel (07/05/17 14:45) Lipase (07/05/17 14:45) Prothrombin Time / Inr (Pt) (07/05/17 14:45) Act Partial Throm Time (Ptt) (07/05/17 14:45) Urinalysis - C+S If Indicated (07/05/17 14:45) Iv Access Insert/Monitor (07/05/17 14:45) Ecg Monitoring (07/05/17 14:45) Oximetry (07/05/17 14:45) Sodium Chlor 0.9% 1000 Ml Inj (Ns 1000 M (07/05/17 14:45) Sodium Chloride 0.9% Flush (Ns Flush) (07/05/17 14:45) Ct Abd/Pel W Iv Contrast(Rout) (07/05/17 ) Urine Culture (07/05/17 15:18) Iohexol 350 Inj (Omnipaque 350 Inj) (07/05/17 16:51) Ceftriaxone Inj (Rocephin Inj) (07/05/17 17:30) Labs Laboratory Tests Test 07/05/17 15:15 07/05/17 15:18 White Blood Count 6.5 TH/MM3 Red Blood Count 3.93 MIL/MM3 Hemoglobin 11.9 GM/DL Hematocrit 34.6 % Mean Corpuscular Volume 88.1 FL Mean Corpuscular Hemoglobin 30.2 PG Mean Corpuscular Hemoglobin Concent 34.3 % Red Cell Distribution Width 13.2 % Platelet Count 273 TH/MM3 Mean Platelet Volume 7.0 FL Neutrophils (%) (Auto) 51.1 % Lymphocytes (%) (Auto) 39.3 % Monocytes (%) (Auto) 6.2 % Eosinophils (%) (Auto) 2.9 % Basophils (%) (Auto) 0.5 % Neutrophils # (Auto) 3.3 TH/MM3 Lymphocytes # (Auto) 2.5 TH/MM3 Monocytes # (Auto) 0.4 TH/MM3 Eosinophils # (Auto) 0.2 TH/MM3 Basophils # (Auto) 0.0 TH/MM3 CBC Comment DIFF FINAL Differential Comment Prothrombin Time 10.1 SEC Prothromb Time International Ratio 0.9 RATIO Activated Partial Thromboplast Time 24.3 SEC Blood Urea Nitrogen 28 MG/DL Creatinine 0.89 MG/DL Random Glucose 158 MG/DL Total Protein 7.9 GM/DL Albumin 3.3 GM/DL Calcium Level 8.6 MG/DL Alkaline Phosphatase 103 U/L Aspartate Amino Transf (AST/SGOT) 24 U/L Alanine Aminotransferase (ALT/SGPT) 26 U/L Total Bilirubin 0.2 MG/DL Sodium Level 137 MEQ/L Potassium Level 3.3 MEQ/L Chloride Level 102 MEQ/L Carbon Dioxide Level 26.2 MEQ/L Anion Gap 9 MEQ/L Estimat Glomerular Filtration Rate 69 ML/MIN Lipase 261 U/L Urine Color YELLOW Urine Turbidity HAZY Urine pH 5.5 Urine Specific [place] 1.024 Urine Protein 300 mg/dL Urine Glucose (UA) NEG mg/dL Urine Ketones NEG mg/dL Urine Occult Blood LARGE Urine Nitrite NEG Urine Bilirubin NEG Urine Urobilinogen LESS THAN 2.0 MG/DL Urine Leukocyte Esterase TRACE Urine RBC 50-99 /hpf Urine WBC 9-14 /hpf Urine Squamous Epithelial Cells > 8 /hpf Urine Bacteria OCC /hpf Microscopic Urinalysis Comment CULTURE INDICATED MDM Medical Decision Making Medical Screen Exam Complete: Yes Emergency Medical Condition: Yes Medical Record Reviewed: Yes Interpretation(s) Last Impressions Abdomen/Pelvis CT 07/05/17 0000 Signed Impressions: Service Date/Time: Friday, July 05, 2017 16:36 - CONCLUSION: 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 There is moderate lower pole hydronephrosis and hydroureter and nonspecific inflammatory changes of the distal lower pole ureter. Previously seen left renal abscess has resolved. Dominick De La Garza MD Differential Diagnosis UTI versus pyelonephritis versus diverticulitis Narrative Course 46-year-old female presents to the emergency department for evaluation of left lower quadrant abdominal pain that started this morning with 2 and half weeks of hematuria. IV access is established. CBC, CMP, lipase, PTT, PT/INR, UA are ordered and pending. CT abdomen/pelvis with IV contrast is ordered and pending. CBC shows no acute abnormality. CMP shows no acute abnormality. Lipase is 261. Coags is unremarkable. UA shows trace leukocytes, 9-[address] abdomen/ pelvis shows duplicated left renal collecting system with an upper pole moiety stent that appears appropriately positioned but with [id number] hydronephrosis/hydroureter. There is moderate lower pole hydronephrosis and hydroureter and nonspecific inflammatory changes of the distal lower pole ureter. Previously seen left renal abscess has resolved. Patient is given Rocephin 1 gm IV for UTI. I spoke to Dr. Bae, who is mental hygiene consultant for Dr. Aguilar. He reviewed her previous records as well as her current labs and CT scan. He states that the patient can be treated outpatient and follow up outpatient. He like the patient be discharged with antibiotic for UTI and pain medication. He will order a renal scan for the patient and she will follow up outpatient. I discussed this with the patient who states she does not want to be admitted and agrees with plan of outpatient follow-up. Patient states she will follow up. She is going to be given a prescription for Keflex for UTI. She is to follow-up with Dr. Aguilar. I will also give her the information for Dr. Bae. She is return here for any acute worsening of symptoms. She verbalizes agreement and understanding. Diagnosis Primary Impression: UTI (urinary tract infection) Qualified Codes: N30.01 - Acute cystitis with hematuria Additional Impression: Hydronephrosis Qualified Codes: N13.30 - Unspecified hydronephrosis Referrals: French Aguilar MD, Shawn Wayne DO Patient Instructions: General Instructions, Urinary Tract Infection in Women ( ED) Med/Other Pt SpecificInfo: Prescription(s) given Scripts Cephalexin (Keflex) 500 Mg Cap 500 MG PO Q6H for Infection for 10 Days, #40 CAP 0 Refills Prov: Yue Light 07/05/17 Hydrocodone-Acetaminophen ([place]) 5 Mg-325 Mg Tab 1 TAB PO Q6H Y for PAIN, #12 TAB 0 Refills Prov: Yue Light 07/05/17 Disposition: 01 DISCHARGE HOME Condition: Stable Yue Light Jul 05, 2017 14:53
[2017-07-05 15:16] VITALS: O2SAT 97
[2017-07-05 15:22] VITALS: BP 170/94; PULSE 90; RESP 22; O2SAT 96
[2017-07-05 16:00] VITALS: BP 158/88; PULSE 90; RESP 16; O2SAT 98
[2017-07-05 16:06] LABS: AUTOMATED NEUTROPHIL # 3.3 TH/MM3 (1.8-7.7); BASOPHIL % 0.5 % (0.0-2.0); EOSINOPHIL # 0.2 TH/MM3 (0-0.4); EOSINOPHIL % 2.9 % (0.0-4.0); HEMATOCRIT 34.6 % (35.0-46.0); HEMO FLAGS DIFF FINAL; LYMPH % 39.3 % (9.0-44.0); LYMPHOCYTE # 2.5 TH/MM3 (1.0-4.8); MEAN CELL VOLUME 88.1 FL (80.0-100.0); MEAN CORPUSCULAR HEMOGLOBIN 30.2 PG (27.0-34.0); MEAN CORPUSCULAR HGB CONC 34.3 % (32.0-36.0); MONO % 6.2 % (0.0-8.0); NEUT % 51.1 % (16.0-70.0); PLATELET COUNT 273 TH/MM3 (150-450); RED BLOOD COUNT 3.93 MIL/MM3 (4.00-5.30); RED CELL DISTRIBUTION WIDTH 13.2 % (11.6-17.2); WHITE BLOOD COUNT 6.5 TH/MM3 (4.0-11.0)
[2017-07-05 16:12] LABS: BLOOD, URINE LARGE (NEG); GLUCOSE,URINE NEG (NEG); KETONE, URINE NEG (NEG); NITRITE,URINE NEG (NEG); PH, URINE 5.5 (5.0-8.5); URINE COLOR YELLOW (YELLW/STRAW)
[2017-07-05 16:20] LABS: ALT (GPT) 26 U/L (10-53)
[2017-07-05 16:22] LABS: BACTERIA, URINE OCC /hpf; COMMENT (UR) CULTURE INDICATED; CULTURE IF INDICATED CULTURE INDICATED; SQUAMOUS EPITHELIAL CELL URINE > 8 /hpf (0-5)
[2017-07-05 16:23] LABS: ALKALINE PHOSPHATASE 103 U/L (45-117); ANION GAP 9 MEQ/L (5-15); AST (GOT) 24 U/L (15-37); BICARBONATE 26.2 MEQ/L (21.0-32.0); BLOOD UREA NITROGEN 28 MG/DL (7-18); CHLORIDE 102 MEQ/L (98-107); GLOMERULAR FILTRATION RATE 69 ML/MIN (>89); POTASSIUM 3.3 MEQ/L (3.5-5.1); SODIUM (NA) 137 MEQ/L (136-145); TOTAL BILIRUBIN ADULT 0.2 MG/DL (0.2-1.0)
[2017-07-05 16:29] LABS: APTT (PATIENT) 24.3 SEC (24.3-30.1); INTERNATIONAL NORMALIZED RATIO 0.9 RATIO; PROTHROMBIN TIME - PATIENT 10.1 SEC (9.8-11.6)
[2017-07-05] MEDS ORDERED: IOHEXOL 350 MG/ML 10 ML VIAL (for RAD DIAG) IVCONTRAST ONE (16:51)
[2017-07-05 17:00] VITALS: BP 142/71; PULSE 90; RESP 13; O2SAT 96
--- NOTE | 2017-07-05 17:07 | RADRPT ---
EXAM DATE/TIME: 07/05/2017 16:36 [facility] COMPARISON: CT ABDOMEN & PELVIS W CONTRAST, May 06, 2017, 19:11. INDICATIONS : Left abdominal pain. IV CONTRAST: 100 cc Omnipaque 350 (iohexol) IV ORAL CONTRAST: No oral contrast ingested. RADIATION DOSE: 8.75 CTDIvol (mGy) MEDICAL HISTORY : Carcinoma, breast. Renal calculi. SURGICAL HISTORY : Hysterectomy. Left ureteral stent. ENCOUNTER: Initial ACUITY: 1 day PAIN SCALE: 7/10 LOCATION: Left flank TECHNIQUE: Volumetric scanning of the abdomen and pelvis was performed. Using automated exposure control and ad justment of the mA and/or kV according to patient size, radiation dose was kept as low as reasonably achievable to obtain optimal diagnostic quality images. DICOM format image data is available electro nically for review and comparison. FINDINGS: There is a duplicated left renal collecting system. I believe the ureters merge distally before enter ing the bladder as a single ureter. A stent is again seen in the upper pole moiety which has mild hyd ronephrosis and hydroureter. There is moderate hydronephrosis and hydroureter of the lower pole moiet y and inflammatory change around the left ureter, especially its mid and distal portion. No perceptib le stone. Previously seen masslike area of the left lower pole thought to be an abscess has resolved in the interim. Right kidney is normal. Liver, spleen, pancreas and adrenal glands are within normal limits. 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 There is moderate lower pole hydroneph rosis and hydroureter and nonspecific inflammatory changes of the distal lower pole ureter. Previousl y seen left renal abscess has resolved. Dominick De La Garza MD on July 05, 2017 at 16:58 Board Certified Radiologist. This report was verified electronically.
[2017-07-05] MEDS ORDERED: cefTRIAXone INJ 1,000 MG in SODIUM CHLORIDE 0.9% INJ 100 ML IV ONE (17:30)
[2017-07-05 17:40] VITALS: BP 148/80; PULSE 90; RESP 15; O2SAT 96
[2017-07-05] MEDS ORDERED: CEPH-460 PO (18:08)
[2017-07-05] MEDS ORDERED: NORC5TAB PO (18:08)
== END 2017-07-05 19:07 | disposition home or self-care (01) ==
LOC: NEPE 14:20
DX: N30.01 Acute cystitis with hematuria (principal); N13.30 Unspecified hydronephrosis; R11.0 Nausea; Z87.19 Personal history of other diseases of the digestive system; Z86.69 Personal history of other diseases of the nervous system and sense organs; Z87.42 Personal history of other diseases of the female genital tract; Z85.3 Personal history of malignant neoplasm of breast
CPT/HCPCS: 74177; 80053; 81001; 83690; 85025; 85610; 85730; 87086; 96361; 96365; 99285; J0696; J7030; Q9967

== ENCOUNTER → 2017-07-22 | Day surgery (SDC) | payer OTHER ==
[~2017-07-22] VITALS: Ht 167.6 cm; Wt 91.8 kg
[~2017-07-22] MED LIST changes: +CEPH-459 PO; +CHLORHEXIDINE GLUCONATE 2 % 1 PACK (2 CLOTHS) TOPICAL PRN; -CRANCAP2 PO; +DO NOT ADM ANY ANTICOAGULANT DRUGS PRN; +GLYCOPYRROLATE 1 MG/5 ML SYRINGE IV PUSH ONE; +IOHEXOL 350 MG/ML 50 ML BTL (for RAD DIAG) OTHER ONE; +LACTATED RINGER'S 1000 ML INJ 1,000 ML IV ONE; +LACTATED RINGER'S 1000 ML IV PRN; -LEVA500T33 PO; -LEVO500T8 PO; +LIDOCAINE HCL 1% PF 5 ML SYRINGE OTHER ONE; +METOPROLOL TARTRATE 25 MG TAB PO PRN; +NEOSTIGMINE 3 MG/3 ML SYR IV ONE; +NORC5TAB PO; +ONDANSETRON HCL 4 MG/2 ML VIAL IV PUSH ONE; +ONDANSETRON HCL 4 MG/2 ML VIAL IV PUSH PRN; +PERC5TAB12 PO; +POVIDONE IODINE 5% (ANTISEPSIS KIT) 4 APPLICATIONS EACH NARE PRN; +PROPOFOL 200 MG/20 ML AMP IV ONE; +ROCURONIUM INJ 50 MG/5 ML SYRINGE IV PUSH ONE; +SODIUM CHLORID 0.9% 500 ML IV PRN; +ceFAZolin 2 GM PREMIX 50 ML IV SCH; +ePHEDrine/NS 25 MG/5 ML SYR IV ONE; +oxyCODONE/ACETAMINOPHEN 5 MG/325 MG TAB PO PRN
--- NOTE | 2017-07-22 14:18 | PD.OP ---
Operative Report Date of Surgery: Jul 22, 2017 Preoperative Diagnosis: (1) Endometriosis Postoperative Diagnosis: (1) Endometriosis Procedure: Cystoscopy, removal of left ureteral stent and left retrograde pyelogram Anesthesia: General Surgeon: French Aguilar Supervisor Cook Room(s): None Operation and Findings: Indication for procedure: Case of a pleasant 46-year-old female with history of partial duplication of left collecting system as well as endometriosis involving the distal left ureter causing obstruction who is status post fulguration and stent placement. Patient presents now for cystoscopy, endoscopic removal of the left ureteral stent and left retrograde pyelogram study. Operative procedure in detail: Patient was brought to the operating suite and placed supine on the OR table. She was then placed under general anesthesia. She was then repositioned in the dorsal lithotomy position and prepped and draped in normal fashion. After appropriate timeout was undertaken, I proceeded with cystoscopic evaluation utilizing the rigid cystoscope with a 20 [place] sheath and 30 lens. The previously seen double-J stent could be seen protruding from the left ureteral orifice and this was subsequently grasped and removed with flexible forceps. The stent was carefully inspected to make certain that the entire stent was removed and no stent fragments were left behind. Upon stent removal there was clear reflux of urine noted from the left ureter orifice as well as from the right orifice. I then utilized a 6 [place] open-ended ureteral catheter and performed a left retrograde pyelogram study. There was prompt filling and drainage of the entire collecting system on the left side. The decision was thus made not to replace a stent. The bladder was drained of all irrigant fluid and the cystoscope was withdrawn. The patient tolerated the procedures without complications and was transferred to the PACU in satisfactory condition. French Aguilar MD Jul 22, 2017 14:18
[2017-07-22 15:04] VITALS: BP 143/86; PULSE 71; RESP 18; TEMP 97.6; O2SAT 94
== END | disposition home or self-care (01) ==
LOC: HSDC 10:34
PROVIDERS: ATTEND Urology
DX: N80.8 Other endometriosis (principal); E11.9 Type 2 diabetes mellitus without complications; G40.909 Epilepsy, unspecified, not intractable, without status epilepticus; I10 Essential (primary) hypertension
CPT/HCPCS: 00910; 52310; 74420; C1769; J0690; J2405; J2710; J3010; J7120; Q9967